=== PATIENT | male | born 1960 | race Caucasian/White ===

== ENCOUNTER 2017-04-30 15:56 | Outpatient (RCR) | payer OTHER, SELFPAY ==
[2017-04-30 17:29] LABS: International Normalized Ratio 3.1; Prothrombin Time (Protime)PT. 30.5 SECONDS (11.7-14.9)
== END 2017-04-30 16:15 | disposition home or self-care (01) ==
LOC: LAB 15:56
PROVIDERS: Family Provider Nurse Practitioner; PCP Nurse Practitioner; Visit Provider Internal Medicine Cardiovascular Disease
DX: I48.0 Paroxysmal atrial fibrillation (principal)
CPT/HCPCS: 36415; 85610

== ENCOUNTER 2017-06-09 16:27 | Outpatient (RCR) | payer OTHER, SELFPAY ==
[2017-04-24 13:35] VITALS: BP 168/90; BMI 31.7
[2017-06-05 12:36] LABS: Prothrombin Time (Protime)PT. 38.2 SECONDS (11.7-14.9)
[2017-06-05 13:14] LABS: International Normalized Ratio 4.1
[2017-06-09 17:36] LABS: International Normalized Ratio 2.9; Prothrombin Time (Protime)PT. 28.9 SECONDS (11.7-14.9)
== END 2017-06-09 17:00 | disposition home or self-care (01) ==
LOC: LAB 16:27
PROVIDERS: Family Provider Nurse Practitioner; PCP Nurse Practitioner; Visit Provider Internal Medicine Cardiovascular Disease
DX: I48.91 Unspecified atrial fibrillation (principal)
CPT/HCPCS: 36415; 85610

== ENCOUNTER 2017-07-16 10:55 | Outpatient (RCR) | payer OTHER, SELFPAY ==
[2017-06-25 11:31] LABS: International Normalized Ratio 2.8
[2017-07-16 11:30] LABS: International Normalized Ratio 2.6; Prothrombin Time (Protime)PT. 27.9 SECONDS (11.7-14.9)
== END 2017-07-16 12:00 | disposition home or self-care (01) ==
LOC: LAB 10:55
PROVIDERS: Family Provider Nurse Practitioner; PCP Nurse Practitioner; Visit Provider Internal Medicine Cardiovascular Disease
DX: I48.91 Unspecified atrial fibrillation (principal)
CPT/HCPCS: 36415; 85610

== ENCOUNTER 2017-08-06 08:17 | Outpatient (RCR) | payer OTHER, SELFPAY ==
[2017-08-06 08:48] LABS: International Normalized Ratio 2.9; Prothrombin Time (Protime)PT. 30.4 SECONDS (11.7-14.9)
== END 2017-08-06 09:00 | disposition home or self-care (01) ==
LOC: LAB 08:17
PROVIDERS: Family Provider Nurse Practitioner; PCP Nurse Practitioner; Visit Provider Internal Medicine Cardiovascular Disease
DX: I48.91 Unspecified atrial fibrillation (principal)
CPT/HCPCS: 36415; 85610

== ENCOUNTER 2017-09-05 08:18 | Outpatient (RCR) | payer OTHER, SELFPAY ==
[2017-09-05 09:07] LABS: International Normalized Ratio 3.4; Prothrombin Time (Protime)PT. 34.5 SECONDS (11.7-14.9)
[2017-09-05 09:29] LABS: AST(SGOT) 31 U/L (15-37); Alanine Aminotransfer ALT/SGPT 30 U/L (16-61); Albumin, Serum 3.7 g/dL (3.2-5.0); Alkaline Phosphatase 86 U/L (45-117); Bilirubin, Direct 0.14 mg/dL (0.00-0.30); Cholesterol 150 mg/dL (200); Globulin 3.5 g/dL (2.2-4.2); High Density Lipoprotein 36 mg/dL; Protein, Total 7.2 g/dL (6.4-8.2); Triglycerides 149 mg/dL; Very Low Density Lipoprotein 30 mg/dL (5-40)
== END 2017-09-05 09:00 | disposition home or self-care (01) ==
LOC: LAB 08:18
PROVIDERS: Family Provider Nurse Practitioner; PCP Nurse Practitioner; Visit Provider Internal Medicine Cardiovascular Disease
DX: I48.91 Unspecified atrial fibrillation (principal); E78.5 Hyperlipidemia, unspecified; Z79.899 Other long term (current) drug therapy
CPT/HCPCS: 36415; 80061; 80076; 85610

== ENCOUNTER 2017-10-14 16:33 | Outpatient (RCR) | payer OTHER, SELFPAY ==
[2017-10-06 17:16] LABS: Prothrombin Time (Protime)PT. 36.1 SECONDS (11.7-14.9)
[2017-10-06 17:59] LABS: International Normalized Ratio 3.6
[2017-10-14 17:16] LABS: International Normalized Ratio 3.2; Prothrombin Time (Protime)PT. 32.9 SECONDS (11.7-14.9)
== END 2017-10-14 17:00 | disposition home or self-care (01) ==
LOC: LAB 16:33
PROVIDERS: Family Provider Nurse Practitioner; PCP Nurse Practitioner; Visit Provider Internal Medicine Cardiovascular Disease
DX: I48.91 Unspecified atrial fibrillation (principal); E78.5 Hyperlipidemia, unspecified; Z79.899 Other long term (current) drug therapy
CPT/HCPCS: 36415; 85610

== ENCOUNTER 2017-11-14 15:53 | Outpatient (RCR) | payer OTHER, SELFPAY ==
[2017-10-31 16:02] LABS: International Normalized Ratio 3.7
[2017-11-14 17:34] LABS: Prothrombin Time (Protime)PT. 31.7 SECONDS (11.7-14.9)
== END 2017-11-14 17:00 | disposition home or self-care (01) ==
LOC: LAB 15:53
PROVIDERS: Family Provider Nurse Practitioner; PCP Nurse Practitioner; Visit Provider Internal Medicine Cardiovascular Disease
DX: I48.91 Unspecified atrial fibrillation (principal); E78.5 Hyperlipidemia, unspecified; Z79.899 Other long term (current) drug therapy
CPT/HCPCS: 36415; 85610

== ENCOUNTER 2017-12-12 12:32 | Outpatient (RCR) | payer OTHER, SELFPAY ==
[2017-12-12 13:21] LABS: International Normalized Ratio 3.2; Prothrombin Time (Protime)PT. 33.1 SECONDS (11.7-14.9)
== END 2017-12-12 14:00 | disposition home or self-care (01) ==
LOC: LAB 12:32
PROVIDERS: Family Provider Nurse Practitioner; PCP Nurse Practitioner; Visit Provider Internal Medicine Cardiovascular Disease
DX: I48.91 Unspecified atrial fibrillation (principal)
CPT/HCPCS: 36415; 85610

== ENCOUNTER 2018-01-09 10:27 | Outpatient (RCR) | payer OTHER, SELFPAY ==
[2018-01-09 11:07] LABS: International Normalized Ratio 2.9; Prothrombin Time (Protime)PT. 30.4 SECONDS (11.7-14.9)
== END 2018-01-09 12:00 | disposition home or self-care (01) ==
LOC: LAB 10:27
PROVIDERS: Family Provider Nurse Practitioner; PCP Nurse Practitioner; Visit Provider Internal Medicine Cardiovascular Disease
DX: I48.91 Unspecified atrial fibrillation (principal)
CPT/HCPCS: 36415; 85610

== ENCOUNTER 2018-03-20 11:54 | Outpatient (RCR) | payer OTHER, SELFPAY ==
[2018-02-19 17:22] LABS: International Normalized Ratio 2.9; Prothrombin Time (Protime)PT. 30.1 SECONDS (11.7-14.9)
[2018-03-20 13:39] LABS: International Normalized Ratio 2.7
== END 2018-03-20 12:32 | disposition home or self-care (01) ==
LOC: LAB 11:54
PROVIDERS: Family Provider Nurse Practitioner; PCP Nurse Practitioner; Referring Provider Internal Medicine Cardiovascular Disease; Visit Provider Internal Medicine Cardiovascular Disease
DX: I48.91 Unspecified atrial fibrillation (principal)
CPT/HCPCS: 36415; 85610

== ENCOUNTER → 2018-04-04 09:58 | Outpatient (CLI) | payer OTHER, SELFPAY ==
[2018-04-04 11:22] LABS: AST(SGOT) 24 U/L (15-37); Alanine Aminotransfer ALT/SGPT 30 U/L (16-61); Albumin, Serum 3.7 g/dL (3.2-5.0); Alkaline Phosphatase 91 U/L (45-117); Bilirubin, Direct 0.13 mg/dL (0.00-0.30); Cholesterol 218 mg/dL (200); Globulin 3.1 g/dL (2.2-4.2); High Density Lipoprotein 39 mg/dL; Protein, Total 6.8 g/dL (6.4-8.2); Triglycerides 146 mg/dL; Very Low Density Lipoprotein 29 mg/dL (5-40)
--- OUTSIDE RECORDS SUMMARY | 2018-07-08 09:26 | XMS RPT_ITS ---
:1960 Author Organization OHIP Support Name Relationship Address Phone [facility] Unavailable [phone] + [place] [address] CURTIS RILEY Unavailable [address] + [place] [address] [facility] Unavailable [address] + [place] [phone] BHARATI RILEYICE Unavailable [address] + [place] [address] [facility] Unavailable [address] + [place] [phone] BHARATI RILEYICE Unavailable [address] + [place] [address] [facility]available [address] + [place] [address] BHARATI RILEYICE Unavailable [address] + [place] [address] [facility] Unavailable [address] + [place] [phone] BHARATI RILEYICE Unavailable [address] + [place] [address] [facility] Unavailable [address] + [place] [address] CURTIS RILEY Unavailable [address] + [place] [address] [facility] Unavailable [address] + [place] [address] BHARATI RILEYICE Unavailable [address] + [place] [address] [facility] Unavailable [address] + [place] [address] RILEY CURTIS Unavailable [address] + [place] [address] [facility] Unavailable [address] + [place] [address] RILEYBHARATICURTIS Unavailable NA + [place] [address] [facility] Unavailable [address] + [place] [address] RILEY, CURTIS Unavailable NA + [place] [address] [facility] Unavailable [address] + [place] [address] RILEY, CURTIS Unavailable NA + [place] [address] [facility] Unavailable [address] + [place] [address] RILEY, CURTIS Unavailable NA + [place] [address] Care Team Providers Name Role Phone Jadyn, [place] Attending Unavailable Jadyn, Rad Referring Unavailable [facility] Jadyn, Rad Attending Unavailable Jadyn, [place] Referring Unavailable [facility] Jadyn, [place] Attending Unavailable Jadyn, Rad Referring Unavailable [facility] Unavailable Jadyn, [place] Attending Unavailable Jadyn, Rad Referring Unavailable [facility] Jadyn, [place] Attending Unavailable Jadyn, [place] Referring [facility]available [facility] Jadyn, [place] Attending Unavailable Jadyn, Rad Referring Unavailable [facility] Unavailable Jadyn, Rad Attending Unavailable Jadyn, [place] Referring [facility]available [facility] Jadyn, Rad Attending Unavailable Jadyn, [place] Referring Unavailable [facility] Jadyn, Rad Attending Unavailable [facility] Referring [facility]available [facility]available Jadyn, [place] Attending Unavailable Jadyn, Rad Referring Unavailable [facility] Unavailable Jadyn, [place] Attending Unavailable Jadyn, Rad Referring Unavailable [facility] Jadyn, Rad Attending Unavailable Jadyn, [place] Referring Unavailable Lisa [facility] Primary [facility] Unavailable PROBLEMS PROBLEMS DATE TYPE CONDITION / CODE ATTENDING STATUS SOURCE 03/23/2018 Unknown I48.91 - Unspecified Jadyn, Rad Active [place] atrial fibrillation Community / I48.91(ICD-10) Hospital Repository 09/18/2017 Unknown E78.5 - Jadyn, Rad Active [place] Hyperlipidemia, Community unspecified / Hospital E78.5(ICD-10) Repository 09/18/2017 Unknown Z79.899 - Other long Jadyn, [place] Active [place] term (current) drug [facility] therapy / Hospital Z79.899(ICD-10) Repository 07/24/2017 Unknown Z95.2 - Presence of Jadyn, Rad Active [place] prosthetic heart [facility] valve / Hospital Z95.2(ICD-10) Repository 07/24/2017 Unknown I10 - Essential Jadyn, Rad Active [place] (primary) [facility] hypertension / Hospital I10(ICD-10) Repository 07/24/2017 Unknown E78.2 - Mixed Jadyn, Rad Active [place] hyperlipidemia / Community E78.2(ICD-10) Hospital Repository PROCEDURES PROCEDURES No Procedure Records FoundRESULTS RESULTS PROTHROMBIN TIME W/INR Collected: 04/30/2018 Status: F Source: [place] 4:43 PM [facility] REPOSITORY TYPE CODE TESTS RESULT OUT OF RANGE REFERENCE UNITS LAB L300.4150 11.7-14.9 SECONDS High PROTIME 24.7 LAB L300.4200 Normal INR 2.2 Performed By: #### L300.3900 #### [facility] Laboratory [facility] [place], [address] LIVER PROFILE Collected: 04/04/2018 Status: F Source: [place] 10:14 AM [facility] REPOSITORY TYPE CODE TESTS RESULT OUT OF RANGE REFERENCE UNITS LAB L501.1500 6.4-8.2 g/dL Normal T PROT 6.8 LAB L501.1800 3.2-5.0 g/dL Normal ALB 3.7 LAB L501.1950 2.2-4.2 g/dL Normal GLOB 3.1 LAB L501.4100 15-37 U/L Normal AST 24 LAB L501.4305 45-117 U/L Normal ALK P 91 LAB L501.4405 16-61 U/L Normal ALT 30 LAB L501.4600 0.20-1.00 mg/dL Normal T BILI 0.50 LAB L501.4700 0.00-0.30 mg/dL Normal D BILI 0.13 Performed By: #### L500.3400, L500.4100 #### [facility] [address] [place], [place], [address] LIPID PROFILE Collected: 04/04/2018 Status: F Source: [place] 10:14 AM [facility] REPOSITORY TYPE CODE TESTS RESULT OUT OF RANGE REFERENCE UNITS LAB L501.4900 200 mg/dL High CHOL 218 Result Comment: <200 mg/dL Desirable 200-240 mg/dL Borderline >240 mg/dL High Risk LAB L501.5000 mg/dL Normal TRIG 146 Result Comment: The drugs N-Acetylcysteine and Metamizole may falsely depress this assay. Serum Triglycerides Reference Interval Normal <150 mg/dL Borderline high 150 - 199 mg/dL High 200 - 499 mg/dL Very High > or = 500 mg/dL LAB L501.6400 mg/dL Low HDL 39 Result Comment: The drugs N-Acetylcysteine and Metamizole may falsely depress this assay. Reference Range HDL <40 mg/dL Low HDL Cholesterol HDL >or= 60 mg/dL High HDL Cholesterol LAB L501.6500 0-130 mg/dL High LDL 150 LAB L501.6600 5-40 mg/dL Normal VLDL 29 Performed By: #### L500.3400, L500.4100 #### [facility] [address] [place], [address] PROTHROMBIN TIME W/INR Collected: 03/20/2018 Status: F Source: [place] 11:59 AM [facility] REPOSITORY TYPE CODE TESTS RESULT OUT OF RANGE REFERENCE UNITS LAB L300.4150 11.7-14.9 SECONDS High PROTIME 29.0 LAB L300.4200 Normal INR 2.7 Performed By: #### L300.3900 #### [facility] [address] [place], [address] PROTHROMBIN TIME W/INR Collected: 02/19/2018 Status: F Source: [place] 4:42 PM [facility] REPOSITORY TYPE CODE TESTS RESULT OUT OF RANGE REFERENCE UNITS LAB L300.4150 11.7-14.9 SECONDS High PROTIME 30.1 LAB L300.4200 Normal INR 2.9 Performed By: #### L300.3900 #### [facility] [address] [place], [address] PROTHROMBIN TIME W/INR Collected: 01/09/2018 Status: F Source: [place] 10:31 AM [facility] REPOSITORY TYPE CODE TESTS RESULT OUT OF RANGE REFERENCE UNITS LAB L300.4150 11.7-14.9 SECONDS High PROTIME 30.4 LAB L300.4200 Normal INR 2.9 Performed By: #### L300.3900 #### [facility] [address] [place], [address] PROTHROMBIN TIME W/INR Collected: 12/12/2017 Status: F Source: [place] 12:36 PM [facility] REPOSITORY TYPE CODE TESTS RESULT OUT OF RANGE REFERENCE UNITS LAB L300.4150 11.7-14.9 SECONDS High PROTIME 33.1 LAB L300.4200 Normal INR 3.2 Performed By: #### L300.3900 #### [facility] [address] [place], [address] PROTHROMBIN TIME W/INR Collected: 11/14/2017 Status: F Source: [place] 3:58 PM [facility] REPOSITORY TYPE CODE TESTS RESULT OUT OF RANGE REFERENCE UNITS LAB L300.4150 11.7-14.9 SECONDS High PROTIME 31.7 LAB L300.4200 Normal INR 3.0 Performed By: #### L300.3900 #### [facility] [address] [place], [address] PROTHROMBIN TIME W/INR Collected: 10/31/2017 Status: F Source: [place] 1:41 PM [facility] REPOSITORY TYPE CODE TESTS RESULT OUT OF REFERENCE UNITS RANGE LAB L300.4150 11.7-14.9 SECONDS High PROTIME 37.0 LAB L300.4200 High alert INR 3.7 Result Comment: CRITICAL VALUE VERIFIED. CALLED TO [facility] 10/31/17 1602 Lidia Biswas. RESULTS READ BACK BY SAME . Performed By: #### L300.3900 #### [facility] [address] [place], [address] PROTHROMBIN TIME W/INR Collected: 10/14/2017 Status: F Source: [place] 4:35 PM [facility] REPOSITORY TYPE CODE TESTS RESULT OUT OF RANGE REFERENCE UNITS LAB L300.4150 11.7-14.9 SECONDS High PROTIME 32.9 LAB L300.4200 Normal INR 3.2 Performed By: #### L300.3900 #### [facility] [address] [place], [address] PROTHROMBIN TIME W/INR Collected: 10/06/2017 Status: F Source: [place] 4:39 PM [facility] REPOSITORY TYPE CODE TESTS RESULT OUT OF REFERENCE UNITS RANGE LAB L300.4150 11.7-14.9 SECONDS High PROTIME 36.1 LAB L300.4200 High alert INR 3.6 Result Comment: CRITICAL VALUE VERIFIED. CALLED TO JOSE WHAT[facility] 10/06/17 1759 Cata Stafford. RESULTS READ BACK BY SAME . Performed By: #### L300.3900 #### [facility] [address] [place], [address] PROTHROMBIN TIME W/INR Collected: 09/05/2017 Status: F Source: [place] 8:23 AM [facility] REPOSITORY TYPE CODE TESTS RESULT OUT OF RANGE REFERENCE UNITS LAB L300.4150 11.7-14.9 SECONDS High PROTIME 34.5 LAB L300.4200 Normal INR 3.4 Performed By: #### L300.3900 #### [facility] [address] [place], [address] LIVER PROFILE Collected: 09/05/2017 Status: F Source: [place] 8:23 AM [facility] REPOSITORY Order Comment: Order Date: 03/19/17 Order Info: [id number] - *Hepatic Function Panel Order Info: [id number] - *Lipid Profile CC PCP Comments: 12 hours fasting, may have water. TYPE CODE TESTS RESULT OUT OF RANGE REFERENCE UNITS LAB L501.1500 6.4-8.2 g/dL Normal T PROT 7.2 LAB L501.1800 3.2-5.0 g/dL Normal ALB 3.7 LAB L501.1950 2.2-4.2 g/dL Normal GLOB 3.5 LAB L501.4100 15-37 U/L Normal AST 31 LAB L501.4305 45-117 U/L Normal ALK P 86 LAB L501.4405 16-61 U/L Normal ALT 30 LAB L501.4600 0.20-1.00 mg/dL Normal T BILI 0.60 LAB L501.4700 0.00-0.30 mg/dL Normal D BILI 0.14 Performed By: #### L500.3400 #### [facility] [address] [place], [place], [id number] LIPID PROFILE Collected: 09/05/2017 Status: F Source: [place] 8:23 AM [facility] REPOSITORY Order Comment: Order Date: 03/19/17 Order Info: [id number] - *Hepatic Function Panel Order Info: [id number] - *Lipid Profile CC PCP Comments: 12 hours fasting, may have water. TYPE CODE TESTS RESULT OUT OF RANGE REFERENCE UNITS LAB L501.4900 200 mg/dL Normal CHOL 150 Result Comment: <200 mg/dL Desirable 200-240 mg/dL Borderline >240 mg/dL High Risk LAB L501.5000 mg/dL Normal TRIG 149 Result Comment: The drugs N-Acetylcysteine and Metamizole may falsely depress this assay. Serum Triglycerides Reference Interval Normal <150 mg/dL Borderline high 150 - 199 mg/dL High 200 - 499 mg/dL Very High > or = 500 mg/dL LAB L501.6400 mg/dL Low HDL 36 Result Comment: The drugs N-Acetylcysteine and Metamizole may falsely depress this assay. Reference Range HDL <40 mg/dL Low HDL Cholesterol HDL >or= 60 mg/dL High HDL Cholesterol LAB L501.6500 0-130 mg/dL Normal LDL 84 LAB L501.6600 5-40 mg/dL Normal VLDL 30 Performed By: #### L500.4100 #### [facility] [address] [place], [address] PROTHROMBIN TIME W/INR Collected: 08/06/2017 Status: F Source: [place] 8:19 AM [facility] REPOSITORY TYPE CODE TESTS RESULT OUT OF RANGE REFERENCE UNITS LAB L300.4150 11.7-14.9 SECONDS High PROTIME 30.4 LAB L300.4200 Normal INR 2.9 Performed By: #### L300.3900 #### [facility] [address] [place], [address] CARDIOLOGY VISIT Observed: 07/24/2017 Status: F Source: [place] REPORT 1:23 PM [facility] REPOSITORY [facility] [address] [place] [address] OFFICE VISIT Date of Service: 07/24/17 MR#: [id number] Acct: [id number] Name: RUT RILEY Rep #: [id number] : 1960 Provider: Rad Salamanca MD Age/Sex: 56/M Location: [facility] [place] Status: Signed HPI HPI Chief Complaint: Follow-up visit. Details: RUT RILEY, is a 56 M who presents to the office today for a follow-up visit. He is a gentleman with a history of [facility] aortic valve replacement in 2005. He returns for routine follow-up visit. He denies any chest pain or shortness breath or paroxysmal nocturnal dyspnea pedal edema he has had no neck arm or jaw discomfort suggest angina no dizziness no diaphoresis no near syncope or syncope. He remains on his current medications as well as anticoagulation. His physical exam demonstrates clear lung lea regular rate and rhythm crisp audible prosthetic sounds and no pedal edema. Intake Vital Signs07/24/17 Height 5 ft 8 in 07/24/17 Weight: 207 lb 07/24/17 Body Mass Index (BMI) 31.4 07/24/17 Blood Pressure 130/74 Intake Visit Reasons: 1 Y FU Allergies No Known Allergies Allergy (Verified 07/24/17 12:57) Medications Aspirin [Aspirin, Baby] 81 mg PO DAILY@0800 06/10/13 [History Confirmed 07/24/17] metoprolol succinate ER 25 mg tablet,extended release 24 hr 12.5 mg PO DAILY tab 04/23/17 [History Confirmed 07/24/17] warfarin 4 mg tablet 4 mg PO 4XW tab 04/23/17 [History Confirmed 07/24/17] warfarin 5 mg tablet 5 mg PO .3XW 90 Days tab 04/23/17 [History Confirmed 07/24/17] atorvastatin 40 mg tablet 40 mg PO .every other day tab 04/24/17 [History Confirmed 07/24/17] ramipril 5 mg capsule 5 mg PO DAILY #90 cap 07/16/17 [Rx Confirmed 07/24/17] amoxicillin 500 mg capsule 500 mg PO .COMPLEX 07/22/17 [History Confirmed 07/24/17] [facility] History correction (current) use of anticoagulants (Acute) HLD (hyperlipidemia) (Chronic) HTN (hypertension) (Chronic) Aortic valve disease (Chronic) Atrial fibrillation (Chronic) Palpitations (Chronic) Bradycardia (Chronic) Anticoagulated on warfarin (Chronic) History of echocardiogram (Chronic) Surgical History History of aortic valve replacement (Chronic 02/29/04) History of right and left heart catheterization (Chronic) Family History Father Hypertension Mother Afib Hypertension Sister Myocardial infarction, Onset Age: 40 Social History Smoking Status: Never smoker alcohol intake: current alcohol intake frequency: a few times a month Alcohol type: wine substance use type: does not use caffeine: Yes Type: coffee Number of servings: 1 what type of physical activity do you participate in: none seatbelt use: always do you feel safe at home: Yes ROS Const Const: Positive for difficulty sleeping; negative for fatigue, weakness, weight gain, weight loss, frequent falls or excessive sweating Eyes Eyes: Negative for change in vision, blurry vision or transient loss of vision ENT ENT: Negative for dizziness or balance problems Cardio Chest Pain: No Palpitations: Yes (occasional) feels like its: fast, skipping, pounding Edema: None Muscle aches with walking: None Additional Details: Patient reports that he was seen a couple of months ago for increased palpitations, noting 4-5x daily. Patient states that he wore a 24 hr holter monitor which didnt capture anything. Patient states that he continues to experience occasional palpitations at this time. Resp Respiratory: Negative for SOB with activity or SOB at rest GI GI: Negative vomiting or vomiting blood/hematemesis : Negative for hematuria Musc Musc: Negative for balance problems, muscle aches/ myalgia, muscle weakness or joint pain Skin Skin: Negative non-healing lesions or rash Neuro Neuro: Negative for weakness, blurry vision, dizziness, lightheadedness, frequent falls or orthostatic symptoms Errol Hematologic/Lymphatic: Negative for easy bleeding Endo Endo: Negative for fatigue or excessive sweating Psych Psych: Negative for anxiety or depression Allergy Allergy/Immunology: Negative for hives, Negative for rash Cardiology Exam Const Appearance: cooperative, healthy appearing, well developed, well groomed and no acute distress Nutritional Appearance: well nourished and average body habitus Orientation: alert, awake and oriented x3 Head Head: normal to inspection, normocephalic and atraumatic Ears: hearing grossly normal bilaterally and external ears normal Nose: external nose normal, nasal mucous membranes and turbinates normal, nares normal, septum normal, no nasal discharge Face and Sinus: face symmetric Mouth: oral mucosae normal, tongue normal, oropharynx normal and moist mucous membranes Teeth and gingiva: dentition normal Throat: posterior oropharynx normal, tonsils normal and uvula midline Eyes General: appearance normal, both eyes and all related structures Eyelids: eyelids normal Conjunctivae: conjunctivae normal Pupils: PERRL, normal by confrontation and accommodation normal EOM: EOM intact bilaterally Neck Neck: normal visual inspection, trachea midline and no JVD JVD: +5 Carotids: normal carotid upstroke and bounding pulses Chest Chest inspection: normal inspection of the chest, symmetric chest movement and normal respiratory effort Auscultation: Bilateral: Clear to Auscultation Cardio Palpation: normal PMI Rate: regular rate Heart sounds: S1 normal and crisp prosthetic S2 Murmur: Grade 1/6 GI GI: normal to inspection, soft, no hepatosplenomegaly and bowel sounds present Neuro General: alert, awake, oriented x3, no focal sensory deficit, gait normal and moves all extremities Skin Skin: no rashes or lesions noted Extremities Pulses: Normal: Right Femoral Pulse, Left Femoral Pulse, Right Dorsalis Pedis Pulse, Left Dorsalis Pedis Pulse, Right Posterior Tibial Pulse, Left Posterior Tibial Pulse, Right Radial Pulse, Left Radial Pulse Lower Extremity Edema: None: Bilateral Musculoskel Musculoskeletal: No joint tenderness Psych Psychological: normal affect Assessment AND Plan 1. History of aortic valve replacement Z95.2 AVR #29 [facility] Resection and replacement of ascending aortic aneurysm with #30 Hemashield graft Plan He overall continues to do well with his current valve. His last echocardiogram was last year which demonstrated an ejection fraction of 55% with a peak gradient of 17 mmHg and a mean gradient of 8 mmHg. He will continue with antibiotic prophylaxis as well as INR between 2.5 and 3.5. 2. Essential hypertension I10 Plan His blood pressure appears to be under excellent control at this time on the beta-kp and the ramipril and no changes will be made. 3. Mixed hyperlipidemia E78.2 Plan He is doing well on his current dose of statin his most recent lipid profile demonstrated total cholesterol 150 LDL of 75 and HDL of 42. No other changes will be made. Thank you for allowing me to participate in the care of your patient. 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) Coding Level of Care Code Off vis,est,level 3 Diagnoses History of aortic valve replacement Z95.2 Essential hypertension I10 Hypertension type: essential hypertension Mixed hyperlipidemia E78.2 Hyperlipidemia type: mixed hyperlipidemia Coding Level of Care Code Off vis,est,level 3 Diagnoses History of aortic valve replacement Z95.2 Essential hypertension I10 Hypertension type: essential hypertension Mixed hyperlipidemia E78.2 Hyperlipidemia type: mixed hyperlipidemia 07/24/17 1323 <Electronically signed by Rad Salamanca MD> Date Rad Salamanca MD Cosigner Signature: Date (if applicable) CC: Lisa Mcconnell NP PROTHROMBIN TIME W/INR Collected: 07/16/2017 Status: F Source: [place] 10:57 AM [facility] REPOSITORY TYPE CODE TESTS RESULT OUT OF RANGE REFERENCE UNITS LAB L300.4150 11.7-14.9 SECONDS High PROTIME 27.9 LAB L300.4200 Normal INR 2.6 Performed By: #### L300.3900 #### [facility] [address] [place] [place], [address] PROTHROMBIN TIME W/INR Collected: 06/25/2017 Status: F Source: [place] 10:18 AM [facility] REPOSITORY TYPE CODE TESTS RESULT OUT OF RANGE REFERENCE UNITS LAB L300.4150 11.7-14.9 SECONDS High PROTIME 30.0 LAB L300.4200 Normal INR 2.8 Performed By: #### L300.3900 #### [facility] [address] [place], [address] PROTHROMBIN TIME W/INR Collected: 06/09/2017 Status: F Source: [place] 4:36 PM [facility] REPOSITORY Order Comment: Comments: STANDING ORDER Comments: STANDING ORDER TYPE CODE TESTS RESULT OUT OF RANGE REFERENCE UNITS LAB L300.4150 11.7-14.9 SECONDS High PROTIME 28.9 LAB L300.4200 Normal INR 2.9 Performed By: #### L300.3900 #### [facility] [address] [place], [address] PROTHROMBIN TIME W/INR Collected: 06/05/2017 Status: F Source: [place] 10:52 AM [facility] REPOSITORY TYPE CODE TESTS RESULT OUT OF REFERENCE UNITS RANGE LAB L300.4150 11.7-14.9 SECONDS High PROTIME 38.2 LAB L300.4200 High alert INR 4.1 Result Comment: CRITICAL VALUE VERIFIED. CALLED TO STEFANI AT [facility] 06/05/17 1314 Olena Butts. RESULTS READ BACK BY SAME . Performed By: #### L300.3900 #### [facility] [address] [place], [address] ALLERGIES ALLERGIES DATE TYPE / CODE NAME / CODE REACTION SEVERITY SOURCE 07/24/2017 Drug No Known Unknown [facility] Allergy/4160 Allergies/F00 Hospital 42788(SNOMED 2654677(RXNOR Repository CT) M) ENCOUNTERS ENCOUNTERS ADMIT/DISCHARGE ACCOUNT ADMITTING ENCOUNTER LOCATION SOURCE NUMBER CLASS 04/30/2018 [id number] Ambulatory [place] [facility] ing:LAB Repository 04/04/2018 [id number] Ambulatory [place] [facility] ing:LAB Repository 03/20/2018/ [id number] [place]ulatory [place] [facility] ing:LAB Repository 01/09/2018/ [id number] Ambulatory [place] [facility] 5 [facility] ing:LAB Repository 12/12/2017/ [id number] Ambulatory [place] 6 [facility] ing:LAB Repository 11/14/2017/ [id number] Ambulatory [place] [facility] 6 [facility] ing:LAB Repository 10/14/2017/ [id number] Ambulatory [place] [facility] 7 [facility] ing:LAB Repository 09/05/2017/ [id number] [place]ulatory [place] [facility] 0 [facility] ing:LAB Repository 08/06/2017/ [id number] Ambulatory [place] [facility] 6 [facility] ing:LAB Repository 07/24/2017/ [id number] Ambulatory [facility] [place] [facility] Repository 07/16/2017/ [id number] Ambulatory [place] [facility] 7 [facility] ing:LAB Repository 06/09/2017/ [id number] Ambulatory [place] 2 [facility] ing:LAB Repository PAYERS PAYERS ENCOUNTER GUARANTOR PAYER SUBSCRIBER SOURCE 04/30/2018 RUT Magana Primary RUT [address]AY[address] BOX Insurance:Emiliano RUELAS: [address] Number: [id number] [address]Kto: [phone] [id number] Repository [phone] () Date:[id number] [address], [place] [address]NI: 04/30/2018 Secondary NOT GIVENUNK [place] Insurance:SELF PAY [facility] Number: Effective Repository Date:2018-03-23 04/04/2018 RUT D Primary RUT D [place] [address] Insurance:CIGNAPolicy WILCOXDOB: [address], [place] Number: [id number] [address]Yaw: 330 [id number] Repository [phone] () Date:[id number] [address], [place] [address]GS: 04/04/2018 Secondary NOT GIVENUNK [place] Insurance:SELF PAY [facility] Number: Effective Repository Date:2018-04-04 03/20/2018 RUT D Primary RUT D [place] [address] Insurance:CIGNAPolicy WILCOXDOB: [address], [place] Number: [id number] [address]Sfu: 330 [id number] Repository [phone] () Date:4912-03-79KS [address], [place] [address]IO: 03/20/2018 Secondary NOT GIVENUNK [place] Insurance:SELF PAY [facility] Number: Effective Repository Date:2018-01-21 01/09/2018 RUT D Primary RUT D [place] [address] Insurance:CIGNAPolicy WILCOXDOB: [address], [place] Number: [id number] [address]Miq: 330 [id number] Repository [phone] () Date:[id number]PVAENKM[place]U, [place] [address]OL: 01/09/2018 Secondary NOT GIVENUNK [place] Insurance:SELF PAY [facility] Number: Effective Repository Date:2017-12-23 12/12/2017 RUT D Primary RUT D [place] [address] Insurance:CIGNAPolicy WILCOXDOB: [address], [place] Number: [id number] [address]Enw: 330 [id number] Repository [phone] (HP) Date:5807-84-43NV [address]QIGISWNG[address], [place] [address]KG: 12/12/2017 Secondary NOT GIVENUNK [place] Insurance:SELF PAY [facility] Number: Effective Repository Date:2017-11-20 11/14/2017 RUT D Primary RUT D [place] [address] Insurance:CIGNAPolicy WILCOXDOB: [facility] [address]: [id number] [id number]: 330 [id number] Repository [phone] (HP) Date:4022-35-91[address]AHXUMEBWHTR, [place] [address]IP: 11/14/2017 Secondary NOT GIVENUNK [place] Insurance:SELF PAY [facility] Number: Effective Repository Date:2017-10-17 10/14/2017 RUT D Primary RUT D [place] [address] Insurance:CIGNAPolicy WILCOXDOB: [address] [place] Number: [id number] [id number]: 330 [id number] Repository [phone] () Date:8793-06-57WU [address]FUOFBVYCZGM, [place] [address]WB: 10/14/2017 Secondary NOT GIVENUNK [place] Insurance:SELF PAY [facility] Number: Effective Repository Date:2017-09-18 09/05/2017 RUT D Primary RUT D [place] [address] Insurance:CIGNAPolicy WILCOXDOB: [facility] [address] Number: [id number] [id number]: 330 [id number] Repository [phone] () Date:1243-25-79DG [address]EBUJGDGPBAW, [place] [address]KT: 09/05/2017 Secondary NOT GIVENUNK [place] Insurance:SELF PAY [facility] Number: Effective Repository Date:2017-08-19 08/06/2017 RUT D Primary RUT D [place] [address] Insurance:CIGNAPolicy WILCOXDOB: [address], [place] Number: [id number] [address]Abq: 330 [id number] Repository [phone] (HP) Date:8254-13-10[address] [address]VA: 08/06/2017 Secondary NOT GIVENUNK [place] Insurance:SELF PAY [facility] Number: Effective Repository Date:2017-07-21 07/24/2017 RUT D Primary RUT D [place] [address] Insurance:CIGNAPolicy WILCOXDOB: [facility] [address], [place] Number: [id number] [facility] [address]Zgb: 330 [id number] Repository [phone] (HP) Date:6498-87-64XS [address] [address]LJ: 07/24/2017 Secondary NOT GIVENUNK [place] Insurance:SELF PAY [facility] Number: Effective Repository Date:2017-07-24 07/16/2017 RUT D Primary RUT D [place] [address] Insurance:CIGNAPolicy WILCOXDOB: [facility] [address] [place] [address], [place] Number: [id number] [address]Ozi: 330 [id number] Repository [phone] () Date:5646-85-53[address] [address]PS: 07/16/2017 Secondary NOT GIVENUNK [place] Insurance:SELF PAY [facility] Number: Effective Repository Date:2017-06-19 06/09/2017 RUT D Primary RUT D [place] [address] Insurance:CIGNAPolicy WILCOXDOB: [facility] [address] Number: [id number] [address]Dbi: 330 [id number] Repository [phone] () Date:2280-83-25WA [address] [address]SZ: 06/09/2017 Secondary NOT GIVENUNK [place] Insurance:SELF PAY [facility] Number: Effective Repository Date:2017-05-27
== END ==
PROVIDERS: Family Provider Nurse Practitioner; PCP Nurse Practitioner; Referring Provider Internal Medicine Cardiovascular Disease; Visit Provider Internal Medicine Cardiovascular Disease
DX: E78.5 Hyperlipidemia, unspecified (principal)
CPT/HCPCS: 36415; 80061; 80076

== ENCOUNTER 2018-05-15 11:46 | Outpatient (RCR) | payer OTHER, SELFPAY ==
[2018-04-30 17:54] LABS: International Normalized Ratio 2.2; Prothrombin Time (Protime)PT. 24.7 SECONDS (11.7-14.9)
[2018-05-15 12:34] LABS: International Normalized Ratio 2.3; Prothrombin Time (Protime)PT. 25.6 SECONDS (11.7-14.9)
== END 2018-05-15 13:00 | disposition home or self-care (01) ==
LOC: LAB 11:46
PROVIDERS: Family Provider Nurse Practitioner; PCP Nurse Practitioner; Referring Provider Internal Medicine Cardiovascular Disease; Visit Provider Internal Medicine Cardiovascular Disease
DX: I48.91 Unspecified atrial fibrillation (principal)
CPT/HCPCS: 36415; 85610

== ENCOUNTER 2018-06-11 16:13 | Outpatient (RCR) | payer OTHER, SELFPAY ==
[2018-05-29 17:32] LABS: International Normalized Ratio 3.1; Prothrombin Time (Protime)PT. 32.1 SECONDS (11.7-14.9)
[2018-06-11 17:33] LABS: International Normalized Ratio 3.3; Prothrombin Time (Protime)PT. 33.4 SECONDS (11.7-14.9)
== END 2018-06-18 17:00 | disposition home or self-care (01) ==
LOC: LAB 16:13
PROVIDERS: Family Provider Nurse Practitioner; PCP Nurse Practitioner; Referring Provider Internal Medicine Cardiovascular Disease; Visit Provider Internal Medicine Cardiovascular Disease
DX: I35.9 Nonrheumatic aortic valve disorder, unspecified (principal); Z79.01 Long term (current) use of anticoagulants; Z95.2 Presence of prosthetic heart valve
CPT/HCPCS: 36415; 85610

== ENCOUNTER 2018-07-03 16:36 | Outpatient (RCR) | payer OTHER, SELFPAY ==
[2018-07-03 17:23] LABS: Prothrombin Time (Protime)PT. 31.1 SECONDS (11.7-14.9)
== END 2018-07-03 17:36 | disposition home or self-care (01) ==
LOC: LAB 16:36
PROVIDERS: Family Provider Nurse Practitioner; PCP Nurse Practitioner; Referring Provider Internal Medicine Cardiovascular Disease; Visit Provider Internal Medicine Cardiovascular Disease
DX: I35.9 Nonrheumatic aortic valve disorder, unspecified (principal); Z79.01 Long term (current) use of anticoagulants; Z95.2 Presence of prosthetic heart valve
CPT/HCPCS: 36415; 85610

== ENCOUNTER 2018-08-13 13:47 | Outpatient (RCR) | payer OTHER, SELFPAY ==
[2018-07-23 10:02] VITALS: BMI 31.1
[2018-08-13 14:27] LABS: International Normalized Ratio 2.3
== END 2018-08-18 16:00 | disposition home or self-care (01) ==
LOC: LAB 13:47
PROVIDERS: Family Provider Nurse Practitioner; PCP Nurse Practitioner; Referring Provider Internal Medicine Cardiovascular Disease; Visit Provider Internal Medicine Cardiovascular Disease
DX: I35.9 Nonrheumatic aortic valve disorder, unspecified (principal); Z79.01 Long term (current) use of anticoagulants; Z95.2 Presence of prosthetic heart valve
CPT/HCPCS: 36415; 85610

== ENCOUNTER 2018-09-18 09:39 | Outpatient (RCR) | payer OTHER, SELFPAY ==
[2018-07-23 10:02] VITALS: BMI 31.1
[2018-08-27 16:25] LABS: Prothrombin Time (Protime)PT. 31.6 SECONDS (11.7-14.9)
[2018-09-18 10:03] LABS: International Normalized Ratio 2.7; Prothrombin Time (Protime)PT. 28.7 SECONDS (11.7-14.9)
== END 2018-09-18 11:00 | disposition home or self-care (01) ==
LOC: LAB 09:39
PROVIDERS: Family Provider Nurse Practitioner; PCP Nurse Practitioner; Referring Provider Internal Medicine Cardiovascular Disease; Visit Provider Internal Medicine Cardiovascular Disease
DX: I35.9 Nonrheumatic aortic valve disorder, unspecified (principal); Z95.2 Presence of prosthetic heart valve; Z79.01 Long term (current) use of anticoagulants
CPT/HCPCS: 36415; 85610

== ENCOUNTER → 2018-09-22 | Outpatient (CLI) | payer OTHER, SELFPAY ==
[2018-07-23 10:02] VITALS: BMI 31.1
[2018-09-22 10:15] LABS: Absolute Lymphocyte Count 1.47 X10^3/ul (0.83-4.51); Absolute Neutrophil Count 4.1 X10^3/uL (2.0-7.7); Basophil# 0.02 X10^3/uL; Basophil% 0.3 % (0-1); Eosinophil# 0.22 X10^3/uL; Eosinophils% 3.4 % (0-5); Hematocrit 44.4 % (40-54); Hemoglobin 14.4 g/dl (13.0-16.5); Lymphocyte # 1.47 X10^3/ul (4.0); Lymphocyte % 22.4 % (19-41); Mean Corp Hgb Conc 32.4 g/gl (32-36); Mean Corpuscular Hgb 29.5 pg (27.0-32.0); Mean Platelet Vol. 10.8 fl (6.2-12.0); Monocyte# 0.71 X10^3/uL; Monocyte% 10.8 % (0-10); Neutrophil # 4.11 X10^3/uL (2.7-7.7); Neutrophil % 62.6 % (47-70); Platelet Count 107 K/mm3 (150-450); RBC Distribution Width SD 43.1 fl (35.1-43.9); Red Blood Count 4.88 M/mm3 (4.6-6.2); White Blood Count 6.6 K/mm3 (4.4-11.0)
[2018-09-22 10:16] LABS: POSITIVE COUNT NO; POSITIVE DIFFERENTIAL NO; POSITIVE MORPHOLOGY NO
[2018-09-22 10:44] LABS: Anion Gap 4 (5-15); BUN 11 mg/dL (7-18); BUN/Creat Ratio 10.2 RATIO (10-20); Calcium,Total 8.9 mg/dL (8.5-10.1); Chloride 108 mmol/L (98-107); Creatinine, Serum 1.08 mg/dL (0.70-1.30); EST Glomerular Filtration Rate 74 mL/min (>60); Est Glom Filt Rate - Afr Amer 90 mL/min (>60); Glucose 94 mg/dL (74-106); Sodium Level 142 mmol/L (136-145)
== END | disposition home or self-care (01) ==
LOC: LAB 09:33
PROVIDERS: Family Provider Nurse Practitioner; PCP Nurse Practitioner; Referring Provider Physician Assistant Medical; Visit Provider Physician Assistant Medical
DX: R00.1 Bradycardia, unspecified (principal); Z95.2 Presence of prosthetic heart valve; R53.83 Other fatigue
CPT/HCPCS: 36415; 80048; 85025

== ENCOUNTER → 2018-10-07 | Outpatient (CLI) | payer OTHER, SELFPAY ==
[2018-07-23 10:02] VITALS: BMI 31.1
--- NOTE | 2018-10-07 09:01 | STRESSREP_ITS ---
Stress Test Report Exercise myocardial perfusion stress test. 58-year-old man with a history of fatigue. Stress protocol: Resting EKG demonstrates sinus bradycardia with a rate of 47 bpm normal intervals noted resting blood pressures 182/80 mmHg. The patient exercised according to regular Jarod protocol for total duration of 8 minutes and 5 seconds the maximum heart rate attained was 150 bpm which was 93% of maximum predicted heart rate the maximum workload was 10.1 metabolic equivalents. At rest there were no ST or T wave changes noted suggest ischemia peak exercise upsloping ST changes were noted with no meet the criteria for ischemia. No clinical angina was noted the test was terminated due to leg fatigue. The resting blood pressures 180/80 with a peak blood pressure of 184/72. Myocardial perfusion protocol. 11.9 mCi of technetium 99m sestamibi was injected at rest. The patient exercised according to regular Jarod protocol for 8 minutes at peak exercise 33.6 mCi of technetium 99m sestamibi was injected stress images were obtained stress and rest images were reconstructed and compared in the short axis vertical and horizontal long axis. Gated images were also obtained. Perfusion SPECT analysis. Review of the stress images demonstrate normal uptake of tracer noted in all areas of myocardium there is mildly reduced perfusion n oted in the inferior wall on the stress images as well as the resting images. No areas of reversibility are noted suggest ischemia. No clinical angina is noted. Gated SPECT analysis: The gated ejection fraction is noted to be 55% Conclusion: Normal exercise myocardial perfusion stress test at a moderate workload. No clinical angina No ischemia.
== END | disposition home or self-care (01) ==
LOC: NM 06:04
PROVIDERS: Family Provider Nurse Practitioner; PCP Nurse Practitioner; Referring Provider Physician Assistant Medical; Visit Provider Physician Assistant Medical
DX: R00.1 Bradycardia, unspecified (principal); Z95.2 Presence of prosthetic heart valve; R53.83 Other fatigue
CPT/HCPCS: 78452; 93017; A9500; A4216

== ENCOUNTER 2018-10-17 07:57 | Outpatient (RCR) | payer OTHER, SELFPAY ==
[2018-07-23 10:02] VITALS: BMI 31.1
[2018-10-17 08:36] LABS: International Normalized Ratio 2.7; Prothrombin Time (Protime)PT. 28.5 SECONDS (11.7-14.9)
[2018-10-17 08:55] LABS: AST(SGOT) 24 U/L (15-37); Alanine Aminotransfer ALT/SGPT 27 U/L (16-61); Albumin, Serum 3.9 g/dL (3.2-5.0); Alkaline Phosphatase 87 U/L (45-117); Anion Gap 3 (5-15); BUN 16 mg/dL (7-18); BUN/Creat Ratio 13.8 RATIO (10-20); Bilirubin, Direct 0.15 mg/dL (0.00-0.30); Calcium,Total 8.6 mg/dL (8.5-10.1); Chloride 110 mmol/L (98-107); Cholesterol 194 mg/dL (200); Creatinine, Serum 1.16 mg/dL (0.70-1.30); EST Glomerular Filtration Rate 69 mL/min (>60); Est Glom Filt Rate - Afr Amer 83 mL/min (>60); Glucose 94 mg/dL (74-106); High Density Lipoprotein 40 mg/dL; Potassium 4.2 mmol/L (3.5-5.1); Protein, Total 6.9 g/dL (6.4-8.2); Sodium Level 143 mmol/L (136-145); Triglycerides 119 mg/dL; Very Low Density Lipoprotein 24 mg/dL (5-40)
== END 2018-10-18 12:00 | disposition home or self-care (01) ==
LOC: LAB 07:57
PROVIDERS: Family Provider Nurse Practitioner; PCP Nurse Practitioner; Referring Provider Internal Medicine Cardiovascular Disease; Visit Provider Internal Medicine Cardiovascular Disease
DX: I35.9 Nonrheumatic aortic valve disorder, unspecified (principal); Z79.01 Long term (current) use of anticoagulants; Z95.2 Presence of prosthetic heart valve
CPT/HCPCS: 36415; 80048; 80061; 80076; 85610

== ENCOUNTER 2018-11-10 16:09 | Outpatient (RCR) | payer OTHER, SELFPAY ==
[2018-07-23 10:02] VITALS: BMI 31.1
[2018-11-10 17:13] LABS: International Normalized Ratio 3.2
== END 2018-11-18 17:23 | disposition home or self-care (01) ==
LOC: LAB 16:09
PROVIDERS: Family Provider Nurse Practitioner; PCP Nurse Practitioner; Referring Provider Internal Medicine Cardiovascular Disease; Visit Provider Internal Medicine Cardiovascular Disease
DX: I35.9 Nonrheumatic aortic valve disorder, unspecified (principal); Z79.01 Long term (current) use of anticoagulants; Z95.2 Presence of prosthetic heart valve
CPT/HCPCS: 36415; 85610

== ENCOUNTER 2018-12-11 06:34 | Outpatient (RCR) | payer OTHER, SELFPAY ==
[2018-07-23 10:02] VITALS: BMI 31.1
[2018-12-11 07:26] LABS: International Normalized Ratio 2.8; Prothrombin Time (Protime)PT. 29.4 SECONDS (11.7-14.9)
== END 2018-12-11 07:34 | disposition home or self-care (01) ==
LOC: LAB 06:34
PROVIDERS: Family Provider Nurse Practitioner; PCP Nurse Practitioner; Referring Provider Internal Medicine Cardiovascular Disease; Visit Provider Internal Medicine Cardiovascular Disease
DX: I35.9 Nonrheumatic aortic valve disorder, unspecified (principal); Z79.01 Long term (current) use of anticoagulants; Z95.2 Presence of prosthetic heart valve
CPT/HCPCS: 36415; 85610

== ENCOUNTER 2019-01-15 11:22 | Outpatient (RCR) | payer OTHER, SELFPAY ==
[2018-07-23 10:02] VITALS: BMI 31.1
[2019-01-15 11:49] LABS: International Normalized Ratio 2.5; Prothrombin Time (Protime)PT. 26.7 SECONDS (11.7-14.9)
== END 2019-01-18 18:00 | disposition home or self-care (01) ==
LOC: LAB 11:22
PROVIDERS: Family Provider Nurse Practitioner; PCP Nurse Practitioner; Referring Provider Internal Medicine Cardiovascular Disease; Visit Provider Internal Medicine Cardiovascular Disease
DX: I35.9 Nonrheumatic aortic valve disorder, unspecified (principal); Z79.01 Long term (current) use of anticoagulants; Z95.2 Presence of prosthetic heart valve
CPT/HCPCS: 36415; 85610

== ENCOUNTER 2019-02-17 16:17 | Outpatient (RCR) | payer OTHER, SELFPAY ==
[2018-07-23 10:02] VITALS: BMI 31.1
[2019-02-17 17:21] LABS: International Normalized Ratio 2.3; Prothrombin Time (Protime)PT. 24.9 SECONDS (11.7-14.9)
== END 2019-02-17 18:00 | disposition home or self-care (01) ==
LOC: LAB 16:17
PROVIDERS: Family Provider Nurse Practitioner; PCP Nurse Practitioner; Referring Provider Internal Medicine Cardiovascular Disease; Visit Provider Internal Medicine Cardiovascular Disease
DX: I35.9 Nonrheumatic aortic valve disorder, unspecified (principal); Z79.01 Long term (current) use of anticoagulants; Z95.2 Presence of prosthetic heart valve
CPT/HCPCS: 36415; 85610

== ENCOUNTER 2019-03-03 12:23 | Outpatient (RCR) | payer OTHER, SELFPAY ==
[2018-07-23 10:02] VITALS: BMI 31.1
[2019-03-03 13:44] LABS: International Normalized Ratio 2.6; Prothrombin Time (Protime)PT. 27.6 SECONDS (11.7-14.9)
== END 2019-03-03 18:00 | disposition home or self-care (01) ==
LOC: LAB 12:23
PROVIDERS: Family Provider Nurse Practitioner; PCP Nurse Practitioner; Referring Provider Internal Medicine Cardiovascular Disease; Visit Provider Internal Medicine Cardiovascular Disease
DX: I35.9 Nonrheumatic aortic valve disorder, unspecified (principal); Z79.01 Long term (current) use of anticoagulants; Z95.2 Presence of prosthetic heart valve
CPT/HCPCS: 36415; 85610

== ENCOUNTER 2019-03-30 12:19 | Outpatient (RCR) | payer OTHER, SELFPAY ==
[2018-07-23 10:02] VITALS: BMI 31.1
[2019-03-30 13:04] LABS: International Normalized Ratio 2.6; Prothrombin Time (Protime)PT. 28.3 SECONDS (11.7-14.9)
== END 2019-03-30 18:00 | disposition home or self-care (01) ==
LOC: LAB 12:19
PROVIDERS: Family Provider Nurse Practitioner; PCP Nurse Practitioner; Referring Provider Internal Medicine Cardiovascular Disease; Visit Provider Internal Medicine Cardiovascular Disease
DX: I35.9 Nonrheumatic aortic valve disorder, unspecified (principal); Z79.01 Long term (current) use of anticoagulants; Z95.2 Presence of prosthetic heart valve
CPT/HCPCS: 36415; 85610

== ENCOUNTER 2019-05-14 16:15 | Outpatient (RCR) | payer OTHER, SELFPAY ==
[2018-07-23 10:02] VITALS: BMI 31.1
[2019-04-29 17:49] LABS: International Normalized Ratio 2.4
[2019-05-14 18:01] LABS: International Normalized Ratio 2.5; Prothrombin Time (Protime)PT. 26.8 SECONDS (11.7-14.9)
== END 2019-05-14 18:00 | disposition home or self-care (01) ==
LOC: LAB 16:15
PROVIDERS: Family Provider Nurse Practitioner; PCP Nurse Practitioner; Referring Provider Internal Medicine Cardiovascular Disease; Visit Provider Internal Medicine Cardiovascular Disease
DX: I35.9 Nonrheumatic aortic valve disorder, unspecified (principal); Z79.01 Long term (current) use of anticoagulants; Z95.2 Presence of prosthetic heart valve
CPT/HCPCS: 36415; 85610

== ENCOUNTER 2019-06-15 13:05 | Outpatient (RCR) | payer OTHER, SELFPAY ==
[2018-07-23 10:02] VITALS: BMI 31.1
[2019-06-15 15:25] LABS: International Normalized Ratio 2.8; Prothrombin Time (Protime)PT. 29.3 SECONDS (11.7-14.9)
== END 2019-06-15 18:00 | disposition home or self-care (01) ==
LOC: LAB 13:05
PROVIDERS: Family Provider Nurse Practitioner; PCP Nurse Practitioner; Referring Provider Internal Medicine Cardiovascular Disease; Visit Provider Internal Medicine Cardiovascular Disease
DX: I48.91 Unspecified atrial fibrillation (principal); I35.9 Nonrheumatic aortic valve disorder, unspecified; Z79.01 Long term (current) use of anticoagulants
CPT/HCPCS: 36415; 85610

== ENCOUNTER 2019-07-21 14:46 | Outpatient (RCR) | payer OTHER, SELFPAY ==
[2018-07-23 10:02] VITALS: BMI 31.1
[2019-07-21 15:53] LABS: International Normalized Ratio 3.2; Prothrombin Time (Protime)PT. 33.3 SECONDS (11.7-14.9)
== END 2019-08-19 18:00 | disposition home or self-care (01) ==
LOC: LAB 14:46
PROVIDERS: Family Provider Nurse Practitioner; PCP Nurse Practitioner; Referring Provider Internal Medicine Cardiovascular Disease; Visit Provider Internal Medicine Cardiovascular Disease
DX: I48.91 Unspecified atrial fibrillation (principal); I35.9 Nonrheumatic aortic valve disorder, unspecified; Z79.01 Long term (current) use of anticoagulants
CPT/HCPCS: 36415; 85610

== ENCOUNTER 2019-08-21 07:44 | Outpatient (RCR) | payer OTHER, SELFPAY ==
[2019-08-16 15:41] VITALS: BMI 31.1
[2019-08-21 08:06] LABS: Absolute Lymphocyte Count 1.38 X10^3/uL (0.83-4.51); Absolute Neutrophil Count 5.1 X10^3/uL (2.0-7.7); Basophil# 0.05 X10^3/uL; Basophil% 0.7 % (0-1); Eosinophils% 2.7 % (0-5); Hematocrit 43.3 % (40-54); Hemoglobin 14.2 g/dL (13.0-16.5); Lymphocyte # 1.38 X10^3/ul (4.0); Lymphocyte % 18.7 % (19-41); Mean Corp Hgb Conc 32.8 g/dL (32-36); Mean Corpuscular Hgb 29.3 pg (27.0-32.0); Mean Corpuscular Volume 89.5 fL (80-94); Mean Platelet Vol. 10.1 fl (6.2-12.0); Monocyte# 0.64 X10^3/uL; Monocyte% 8.7 % (0-10); NRBC Flagged by Analyzer 0 % (0-5); Neutrophil # 5.07 X10^3/uL (2.7-7.7); Neutrophil % 68.8 % (47-70); Platelet Count 195 K/mm3 (150-450); RBC Distribution Width CV 12.3 % (11.6-14.6); RBC Distribution Width SD 40.4 fl (35.1-43.9); Red Blood Count 4.84 M/mm3 (4.6-6.2); White Blood Count 7.4 K/mm3 (4.4-11.0)
[2019-08-21 08:25] LABS: AST(SGOT) 27 U/L (15-37); Alanine Aminotransfer ALT/SGPT 31 U/L (16-61); Albumin, Serum 3.9 g/dL (3.2-5.0); Alkaline Phosphatase 80 U/L (45-117); Anion Gap 6 (5-15); BUN 21 mg/dL (7-18); BUN/Creat Ratio 17.2 RATIO (10-20); Bilirubin, Direct 0.14 mg/dL (0.00-0.30); Chloride 107 mmol/L (98-107); Cholesterol 224 mg/dL (200); Creatinine, Serum 1.22 mg/dL (0.70-1.30); EST Glomerular Filtration Rate 64 mL/min (>60); Est Glom Filt Rate - Afr Amer 78 mL/min (>60); Globulin 3.4 g/dL (2.2-4.2); Glucose 98 mg/dL (74-106); High Density Lipoprotein 41 mg/dL; Protein, Total 7.3 g/dL (6.4-8.2); Sodium Level 138 mmol/L (136-145); Thyroid Stim Hormone (TSH) 3.26 uIU/mL (0.358-3.74); Triglycerides 158 mg/dL; Very Low Density Lipoprotein 32 mg/dL (5-40)
[2019-08-21 08:44] LABS: International Normalized Ratio 2.7; Prothrombin Time (Protime)PT. 27.8 SECONDS (11.7-14.9)
== END 2019-08-21 18:00 | disposition home or self-care (01) ==
LOC: LAB 07:44
PROVIDERS: Physician Assistant Medical; Family Provider Nurse Practitioner; PCP Nurse Practitioner; Referring Provider Internal Medicine Cardiovascular Disease; Visit Provider Internal Medicine Cardiovascular Disease
DX: I48.91 Unspecified atrial fibrillation (principal); I35.9 Nonrheumatic aortic valve disorder, unspecified; Z79.01 Long term (current) use of anticoagulants
CPT/HCPCS: 36415; 80048; 80061; 80076; 84443; 85025; 85610

== ENCOUNTER → 2019-09-02 12:51 | Outpatient (CLI) | payer OTHER, SELFPAY ==
[2019-08-16 15:41] VITALS: BMI 31.1
--- NOTE | 2019-09-02 12:52 | ECHOD_ITS ---
Reason For Study: AVR, SOB, fatigue Procedure This was a 2D Doppler, Color Flow transthoracic echocardiogram. Exam performed in department. Left Ventricle Normal LV size. Left ventricular systolic function is normal. The estimated ejection fraction is 55 %. No regional wall motion abnormalities noted. Right Ventricle Normal RV size. Normal systolic function. Atria Normal left atrium. Normal right atrium. Mitral Valve Normal mitral valve. Mild (1+) mitral valve insufficiency. Tricuspid Valve Normal tricuspid valve. Aortic Valve Calculated aortic valve area (continuity equation) is 2.0 cm2. Mean aortic valve gradient 6 mmHg. Stable appearing mechanical aortic valve apparatus. Bileaflet mechanical aortic valve. Pulmonic Valve Normal pulmonic valve. Great Vessels Normal aortic root. The pulmonary artery is normal size. Normal inferior vena cava. Pericardium/Pleural No pericardial effusion. MMode/2D Measurements & Calculations LVIDd: 4.6 cm IVSd: 1.1 cm LVOT diam: 2.1 cm LVIDs: 2.9 cm LVPWd: 1.1 cm LVOT area: 3.5 cm2 RVDd: 3.7 cm FS: 36.6 % Ao root diam: 3.2 cm LAV(MOD-bp): 59.9 ml EDV(MOD-sp4): 142.6 ml LAV(MOD-bp) Indexed: 29.6 ml/m2 ESV(MOD-sp4): 52.8 ml LAV(MOD-sp2): 78.5 ml EF(MOD-sp4): 63.0 % LAV(MOD-sp4): 40.2 ml EDV(MOD-sp2): 152.2 ml SV(MOD-sp4): 89.8 ml SV(MOD-sp2): 88.4 ml EF(MOD-sp2): 58.1 % LA A4 area: 16.2 cm2 LA dimension(2D): 4.0 cm RA A4 area: 15.0 cm2 Doppler Measurements & Calculations MV E max jamil: 64.7 cm/sec Lat Peak E' Jamil: 9.7 cm/sec Med Peak E' Jamil: 6.9 cm/sec MV A max jamil: 59.5 cm/sec E/E' lat: 6.7 E/E' med: 9.4 MV E/A: 1.1 Ao V2 max: 176.9 cm/sec LV V1 max: 99.2 cm/sec SV(LVOT): 68.4 ml Ao max P.6 mmHg LV V1 max P.9 mmHg Ao V2 mean: 113.9 cm/sec LV V1 mean P.9 mmHg Ao mean P.0 mmHg LV V1 mean: 64.2 cm/sec Ao V2 VTI: 31.0 cm LV V1 VTI: 19.7 cm SHOLA(I,D): 2.2 cm2 SHOLA(V,D): 2.0 cm2 PA V2 max: 101.7 cm/sec TR max jamil: 245.7 cm/sec TR max P.1 mmHg Interpretation Summary Normal LV size. Left ventricular systolic function is normal. The estimated ejection fraction is 55 %. Bileaflet mechanical aortic valve. Stable appearing mechanical aortic valve apparatus. Calculated aortic valve area (continuity equation) is 2.0 cm2. Mean aortic valve gradient 6 mmHg. Ordering Physician: Keisha Montana/Rad Salamanca Referring Physician: Lisa Mcconnell Performed By: Itzel White RDCS
== END ==
PROVIDERS: PCP Nurse Practitioner; Referring Provider Physician Assistant Medical; Visit Provider Physician Assistant Medical
DX: I48.91 Unspecified atrial fibrillation (principal); Z95.2 Presence of prosthetic heart valve; E78.5 Hyperlipidemia, unspecified; I10 Essential (primary) hypertension; R06.00 Dyspnea, unspecified; R53.83 Other fatigue
CPT/HCPCS: 93306

== ENCOUNTER 2019-09-27 10:19 | Outpatient (RCR) | payer OTHER, SELFPAY ==
[2019-08-16 15:41] VITALS: BMI 31.1
[2019-09-27 11:31] LABS: International Normalized Ratio 3.1; Prothrombin Time (Protime)PT. 31.5 SECONDS (11.7-14.9)
== END 2019-09-27 18:00 | disposition home or self-care (01) ==
LOC: LAB 10:19
PROVIDERS: Family Provider Nurse Practitioner; PCP Nurse Practitioner; Referring Provider Internal Medicine Cardiovascular Disease; Visit Provider Internal Medicine Cardiovascular Disease
DX: I48.91 Unspecified atrial fibrillation (principal); I35.9 Nonrheumatic aortic valve disorder, unspecified; Z79.01 Long term (current) use of anticoagulants
CPT/HCPCS: 36415; 85610

== ENCOUNTER → 2019-09-27 | Outpatient (CLI) | payer OTHER, SELFPAY ==
[2019-08-16 15:41] VITALS: BMI 31.1
--- NOTE | 2019-09-27 14:10 | PFTCOMP ---
COMPLETE PULMONARY FUNCTION TEST INTERPRETATION Brief HPI: Patient is a 59 year old male, currently under the care of Keisha Motnana, who presents to [facility] for complete pulmonary function tests secondary to diagnosis of dyspnea. Respiratory therapist reports good effort and reproducible results. Interpretation: Forced expiration spirometry shows no large airways obstructive ventilatory defect with an FEV1 of 86% predicted. There is no significant bronchodilator response by strict ATS criteria. Spirograms are of good quality and plateau normally. The respiratory flow volume loop shows a normal pattern. Lung volumes by body plethysmography show a slightly decreased total lung capacity at 5.11 L, 83% predicted. All other lung volumes are reduced symmetrically. Diffusion capacity by carbon monoxide is normal at 110% predicted. The airway resistance is normal. No previous pulmonary function tests were available for review. Impression: Mild restrictive ventilatory defect with a preserved diffusion capacity and a pattern consistent with musculoskeletal limitation.
== END | disposition home or self-care (01) ==
PROVIDERS: PCP Nurse Practitioner; Referring Provider Physician Assistant Medical; Visit Provider Physician Assistant Medical
DX: R06.00 Dyspnea, unspecified (principal)
CPT/HCPCS: 94060; 94726; 94729

== ENCOUNTER 2019-10-30 10:22 | Outpatient (RCR) | payer OTHER, SELFPAY ==
[2019-08-16 15:41] VITALS: BMI 31.1
--- NOTE | 2019-10-30 10:36 | RAD_ITS ---
STUDY: X-RAY CHEST REASON FOR EXAM: Male, 59 years old. SOB. HX OF VALVE AND AORTA SURGERY 2003 TECHNIQUE: PA and lateral views of the chest. COMPARISON: None. FINDINGS: Status post heart valve replacement surgery. The lungs are clear and expanded. There is no demonstrated pleural abnormality. Normal size heart. Normal mediastinum and candy. Normal visualized pulmonary arteries. Normal visualized aortic arch and descending thoracic aorta. Normal visualized thoracic spine. Normal visualized ribs, clavicles, and shoulders. There is no demonstrated abnormality of the visualized soft tissue structures of the upper abdomen. RAD/Chest PA and Lateral IMPRESSION: Normal x-ray examination of the chest. Electronically Signed: Hiren Guzman MD at 11:00 EDT Tel , Service support ,
[2019-10-30 11:12] LABS: Prothrombin Time (Protime)PT. 30.5 SECONDS (11.7-14.9)
== END 2019-10-30 18:00 | disposition home or self-care (01) ==
LOC: LAB 10:22
PROVIDERS: Family Provider Nurse Practitioner; PCP Nurse Practitioner; Referring Provider Internal Medicine Cardiovascular Disease; Visit Provider Internal Medicine Cardiovascular Disease
DX: I48.91 Unspecified atrial fibrillation (principal); I35.9 Nonrheumatic aortic valve disorder, unspecified; Z79.01 Long term (current) use of anticoagulants
CPT/HCPCS: 36415; 71046; 85610

== ENCOUNTER 2019-12-01 07:19 | Outpatient (RCR) | payer OTHER, SELFPAY ==
[2019-08-16 15:41] VITALS: BMI 31.1
[2019-12-01 08:29] LABS: International Normalized Ratio 3.1; Prothrombin Time (Protime)PT. 31.3 SECONDS (11.7-14.9)
== END 2019-12-20 18:00 | disposition home or self-care (01) ==
LOC: LAB 07:19
PROVIDERS: Family Provider Nurse Practitioner; PCP Nurse Practitioner; Referring Provider Internal Medicine Cardiovascular Disease; Visit Provider Internal Medicine Cardiovascular Disease
DX: I48.91 Unspecified atrial fibrillation (principal); I35.9 Nonrheumatic aortic valve disorder, unspecified; Z79.01 Long term (current) use of anticoagulants
CPT/HCPCS: 36415; 85610

== ENCOUNTER 2019-12-31 09:48 | Outpatient (RCR) | payer OTHER, SELFPAY ==
[2019-08-16 15:41] VITALS: BMI 31.1
[2019-12-31 10:26] LABS: International Normalized Ratio 3.2; Prothrombin Time (Protime)PT. 32.2 SECONDS (11.7-14.9)
== END 2019-12-31 18:00 | disposition home or self-care (01) ==
LOC: LAB 09:48
PROVIDERS: Family Provider Nurse Practitioner; PCP Nurse Practitioner; Referring Provider Internal Medicine Cardiovascular Disease; Visit Provider Internal Medicine Cardiovascular Disease
DX: I48.91 Unspecified atrial fibrillation (principal); I35.9 Nonrheumatic aortic valve disorder, unspecified; Z79.01 Long term (current) use of anticoagulants
CPT/HCPCS: 36415; 85610

== ENCOUNTER 2020-01-28 09:39 | Outpatient (RCR) | payer OTHER, SELFPAY ==
[2019-08-16 15:41] VITALS: BMI 31.1
[2020-01-28 11:18] LABS: International Normalized Ratio 3.1; Prothrombin Time (Protime)PT. 31.9 SECONDS (11.7-14.9)
== END 2020-01-28 18:00 | disposition home or self-care (01) ==
LOC: LAB 09:39
PROVIDERS: Family Provider Nurse Practitioner; PCP Nurse Practitioner; Referring Provider Internal Medicine Cardiovascular Disease; Visit Provider Internal Medicine Cardiovascular Disease
DX: I48.91 Unspecified atrial fibrillation (principal); I35.9 Nonrheumatic aortic valve disorder, unspecified; Z79.01 Long term (current) use of anticoagulants
CPT/HCPCS: 36415; 85610

== ENCOUNTER 2020-03-04 07:47 | Outpatient (RCR) | payer OTHER, SELFPAY ==
[2019-08-16 15:41] VITALS: BMI 31.1
[2020-03-04 09:06] LABS: International Normalized Ratio 3.4
[2020-03-04 09:24] LABS: AST(SGOT) 25 U/L (15-37); Alanine Aminotransfer ALT/SGPT 26 U/L (16-61); Albumin, Serum 3.8 g/dL (3.2-5.0); Alkaline Phosphatase 79 U/L (45-117); Bilirubin, Direct 0.12 mg/dL (0.00-0.30); Cholesterol 185 mg/dL (200); Globulin 3.4 g/dL (2.2-4.2); High Density Lipoprotein 37 mg/dL; Protein, Total 7.2 g/dL (6.4-8.2); Triglycerides 116 mg/dL; Very Low Density Lipoprotein 23 mg/dL (5-40)
== END 2020-03-04 18:00 | disposition home or self-care (01) ==
LOC: LAB 07:47
PROVIDERS: Physician Assistant Medical; Family Provider Nurse Practitioner; PCP Nurse Practitioner; Referring Provider Internal Medicine Cardiovascular Disease; Visit Provider Internal Medicine Cardiovascular Disease
DX: I48.91 Unspecified atrial fibrillation (principal); I35.9 Nonrheumatic aortic valve disorder, unspecified; Z79.01 Long term (current) use of anticoagulants; E78.00 Pure hypercholesterolemia, unspecified
CPT/HCPCS: 36415; 80061; 80076; 85610

== ENCOUNTER 2020-04-13 11:20 | Outpatient (RCR) | payer OTHER, SELFPAY ==
[2019-08-16 15:41] VITALS: BMI 31.1
[2020-03-31 10:27] LABS: International Normalized Ratio 2.4; Prothrombin Time (Protime)PT. 25.5 SECONDS (11.7-14.9)
[2020-04-13 11:54] LABS: International Normalized Ratio 2.8; Prothrombin Time (Protime)PT. 29.5 SECONDS (11.7-14.9)
== END 2020-04-13 18:00 | disposition home or self-care (01) ==
LOC: LAB 11:20
PROVIDERS: Family Provider Nurse Practitioner; PCP Nurse Practitioner; Referring Provider Internal Medicine Cardiovascular Disease; Visit Provider Internal Medicine Cardiovascular Disease
DX: I48.91 Unspecified atrial fibrillation (principal); I35.9 Nonrheumatic aortic valve disorder, unspecified; Z79.01 Long term (current) use of anticoagulants
CPT/HCPCS: 36415; 85610

== ENCOUNTER 2020-05-12 10:34 | Outpatient (RCR) | payer OTHER, SELFPAY ==
[2019-08-16 15:41] VITALS: BMI 31.1
[2020-05-12 11:49] LABS: International Normalized Ratio 3.2
== END 2020-05-12 18:00 | disposition home or self-care (01) ==
LOC: LAB 10:34
PROVIDERS: Family Provider Nurse Practitioner; PCP Nurse Practitioner; Referring Provider Internal Medicine Cardiovascular Disease; Visit Provider Internal Medicine Cardiovascular Disease
DX: I48.91 Unspecified atrial fibrillation (principal); I35.9 Nonrheumatic aortic valve disorder, unspecified; Z79.01 Long term (current) use of anticoagulants
CPT/HCPCS: 36415; 85610

== ENCOUNTER 2020-06-09 11:55 | Outpatient (RCR) | payer OTHER, SELFPAY ==
[2019-08-16 15:41] VITALS: BMI 31.1
[2020-06-09 14:02] LABS: International Normalized Ratio 3.4; Prothrombin Time (Protime)PT. 34.1 SECONDS (11.7-14.9)
== END 2020-06-09 18:00 | disposition home or self-care (01) ==
LOC: LAB 11:55
PROVIDERS: Family Provider Nurse Practitioner; PCP Nurse Practitioner; Referring Provider Internal Medicine Cardiovascular Disease; Visit Provider Internal Medicine Cardiovascular Disease
DX: E78.5 Hyperlipidemia, unspecified (principal); I10 Essential (primary) hypertension; I48.91 Unspecified atrial fibrillation; I35.9 Nonrheumatic aortic valve disorder, unspecified; Z79.01 Long term (current) use of anticoagulants; R00.2 Palpitations; Z95.2 Presence of prosthetic heart valve
CPT/HCPCS: 36415; 85610

== ENCOUNTER 2020-07-06 16:16 | Outpatient (RCR) | payer OTHER, SELFPAY ==
[2019-08-16 15:41] VITALS: BMI 31.1
[2020-07-06 17:39] LABS: International Normalized Ratio 2.2; Prothrombin Time (Protime)PT. 23.8 SECONDS (11.7-14.9)
== END 2020-07-06 18:00 | disposition home or self-care (01) ==
LOC: LAB 16:16
PROVIDERS: Family Provider Nurse Practitioner; PCP Nurse Practitioner; Referring Provider Internal Medicine Cardiovascular Disease; Visit Provider Internal Medicine Cardiovascular Disease
DX: E78.5 Hyperlipidemia, unspecified (principal); I10 Essential (primary) hypertension; I48.91 Unspecified atrial fibrillation; I35.9 Nonrheumatic aortic valve disorder, unspecified; R00.2 Palpitations; Z79.01 Long term (current) use of anticoagulants; Z95.2 Presence of prosthetic heart valve
CPT/HCPCS: 36415; 85610

== ENCOUNTER → 2020-07-27 13:29 | Outpatient (CLI) | payer OTHER, SELFPAY ==
[2020-07-21 13:41] VITALS: BMI 29.6
--- NOTE | 2020-07-27 13:34 | ECHOD_ITS ---
Reason For Study: AVR Procedure This was a 2D Doppler, Color Flow transthoracic echocardiogram. Exam performed in department. Left Ventricle Normal LV size. Left ventricular systolic function is lower limits of normal. The estimated ejection fraction is 50 %. No regional wall motion abnormalities noted. Right Ventricle Normal RV size. Normal systolic function. Atria Normal left atrium. Normal right atrium. Mitral Valve Normal mitral valve. Tricuspid Valve Normal tricuspid valve. Mild (1+) tricuspid valve insufficiency. Pulmonary artery systolic pressure is 30 mmHg. Aortic Valve Peak aortic valve gradient 13 mmHg. Mean aortic valve gradient 7 mmHg. Calculated aortic valve area (continuity equation) is 1.8 cm2. Stable appearing mechanical aortic valve apparatus. Pulmonic Valve Normal pulmonic valve. Great Vessels Normal aortic root. The pulmonary artery is normal size. Normal inferior vena cava. Pericardium/Pleural No pericardial effusion. MMode/2D Measurements & Calculations LVIDd: 4.5 cm IVSd: 0.72 cm LVOT diam: 2.0 cm LVIDs: 3.5 cm LVPWd: 0.81 cm LVOT area: 3.1 cm2 RVDd: 3.9 cm FS: 23.1 % Ao root diam: 3.3 cm LAV(MOD-bp): 41.6 ml LA A4 area: 16.6 cm2 LAV(MOD-bp) Indexed: 20.6 ml/m2 LAV(MOD-sp2): 35.5 ml LAV(MOD-sp4): 43.1 ml RA A4 area: 14.0 cm2 Time Measurements MV dec time: 0.23 sec Doppler Measurements & Calculations MV E max jamil: 69.9 cm/sec Lat Peak E' Jamil: 9.9 cm/sec Med Peak E' Jamil: 7.3 cm/sec MV A max jamil: 58.6 cm/sec E/E' lat: 7.0 E/E' med: 9.6 MV E/A: 1.2 Ao V2 max: 180.4 cm/sec LV V1 max: 102.9 cm/sec SV(LVOT): 67.3 ml Ao max P.0 mmHg LV V1 max P.2 mmHg Ao V2 mean: 129.2 cm/sec LV V1 mean P.4 mmHg Ao mean P.4 mmHg LV V1 mean: 72.4 cm/sec Ao V2 VTI: 34.6 cm LV V1 VTI: 21.4 cm SHOLA(I,D): 1.9 cm2 SHOLA(V,D): 1.8 cm2 PA V2 max: 100.9 cm/sec TR max jamil: 256.0 cm/sec TR max P.2 mmHg ECHO/Echo Complete Interpretation Summary Normal LV size. Left ventricular systolic function is lower limits of normal. The estimated ejection fraction is 50 %. Pulmonary artery systolic pressure is 30 mmHg. The global longitudinal strain is normal. The global longitudinal strain = -18. 5 % (normal). Ordering Physician: Rad Salamanca Referring Physician: YASMIN GUERRERO Performed By: Ayanna Casanova, RDCS, RVT
== END ==
PROVIDERS: PCP Nurse Practitioner; Visit Provider Internal Medicine Cardiovascular Disease
DX: Z95.2 Presence of prosthetic heart valve (principal)
CPT/HCPCS: 93306

== ENCOUNTER 2020-08-18 15:06 | Outpatient (RCR) | payer OTHER, SELFPAY ==
[2019-08-16 15:41] VITALS: BMI 31.1
[2020-07-21 14:37] LABS: International Normalized Ratio 2.7; Prothrombin Time (Protime)PT. 28.2 SECONDS (11.7-14.9)
[2020-08-18 17:24] LABS: International Normalized Ratio 3.6; Prothrombin Time (Protime)PT. 35.2 SECONDS (11.7-14.9)
== END 2020-08-18 18:00 | disposition home or self-care (01) ==
LOC: LAB 15:06
PROVIDERS: Family Provider Nurse Practitioner; PCP Nurse Practitioner; Referring Provider Internal Medicine Cardiovascular Disease; Visit Provider Internal Medicine Cardiovascular Disease
DX: I48.91 Unspecified atrial fibrillation (principal); I35.9 Nonrheumatic aortic valve disorder, unspecified; I10 Essential (primary) hypertension; E78.5 Hyperlipidemia, unspecified; R00.1 Bradycardia, unspecified; R00.2 Palpitations; Z95.2 Presence of prosthetic heart valve; Z79.01 Long term (current) use of anticoagulants
CPT/HCPCS: 36415; 85610

== ENCOUNTER 2020-09-01 16:17 | Outpatient (RCR) | payer OTHER, SELFPAY ==
[2020-07-21 13:41] VITALS: BMI 29.6
[2020-09-01 17:38] LABS: International Normalized Ratio 2.9; Prothrombin Time (Protime)PT. 29.9 SECONDS (11.7-14.9)
== END 2020-09-01 18:00 | disposition home or self-care (01) ==
LOC: LAB 16:17
PROVIDERS: Family Provider Nurse Practitioner; PCP Nurse Practitioner; Referring Provider Internal Medicine Cardiovascular Disease; Visit Provider Internal Medicine Cardiovascular Disease
DX: Z79.01 Long term (current) use of anticoagulants (principal); I48.91 Unspecified atrial fibrillation; I35.9 Nonrheumatic aortic valve disorder, unspecified; I10 Essential (primary) hypertension; E78.5 Hyperlipidemia, unspecified; R00.1 Bradycardia, unspecified; R00.2 Palpitations; Z95.2 Presence of prosthetic heart valve
CPT/HCPCS: 36415; 85610

== ENCOUNTER 2020-09-29 16:24 | Outpatient (RCR) | payer OTHER, SELFPAY ==
[2020-07-21 13:41] VITALS: BMI 29.6
[2020-09-29 17:20] LABS: International Normalized Ratio 3.1; Prothrombin Time (Protime)PT. 31.1 SECONDS (11.7-14.9)
== END 2020-09-29 18:00 | disposition home or self-care (01) ==
LOC: LAB 16:24
PROVIDERS: Family Provider Nurse Practitioner; PCP Nurse Practitioner; Referring Provider Internal Medicine Cardiovascular Disease; Visit Provider Internal Medicine Cardiovascular Disease
DX: I48.91 Unspecified atrial fibrillation (principal); I35.9 Nonrheumatic aortic valve disorder, unspecified; I10 Essential (primary) hypertension; E78.5 Hyperlipidemia, unspecified; R00.1 Bradycardia, unspecified; R00.2 Palpitations; Z95.2 Presence of prosthetic heart valve; Z79.01 Long term (current) use of anticoagulants
CPT/HCPCS: 36415; 85610

== ENCOUNTER → 2020-10-03 15:27 | Outpatient (CLI) | payer OTHER, SELFPAY ==
[2020-07-21 13:41] VITALS: BMI 29.6
--- NOTE | 2020-10-03 15:29 | RAD_ITS ---
INDICATION: COUGH EXAMINATION/TECHNIQUE: X-RAY - XR Chest 2 Views COMPARISON: 10/30/2019. FINDINGS: The lungs are clear. The cardiomediastinal silhouette is unremarkable. Median sternotomy wires present. Aortic valve replacement present. No pleural effusion or pneumothorax. No acute osseous abnormalities. RAD/Chest PA and Lateral IMPRESSION: No acute radiographic abnormalities. Electronically Signed: Griffin Bender MD at 21:00 EDT Tel , Service support ,
== END ==
PROVIDERS: PCP Nurse Practitioner; Referring Provider Nurse Practitioner; Visit Provider Nurse Practitioner
DX: R05 Cough (principal)
CPT/HCPCS: 71046

== ENCOUNTER → 2020-11-16 13:46 | Outpatient (CLI) | payer OTHER, SELFPAY ==
[2020-07-21 13:41] VITALS: BMI 29.6
== END ==
PROVIDERS: PCP Nurse Practitioner; Referring Provider Internal Medicine Cardiovascular Disease; Visit Provider Internal Medicine Cardiovascular Disease
DX: I48.0 Paroxysmal atrial fibrillation (principal); R00.2 Palpitations; R00.1 Bradycardia, unspecified; E78.2 Mixed hyperlipidemia; I10 Essential (primary) hypertension; Q23.1 Congenital insufficiency of aortic valve; Z79.01 Long term (current) use of anticoagulants; Z95.2 Presence of prosthetic heart valve
CPT/HCPCS: 93225; 93226

== ENCOUNTER 2020-11-17 14:53 | Outpatient (RCR) | payer OTHER, SELFPAY ==
[2020-07-21 13:41] VITALS: BMI 29.6
[2020-10-27 17:23] LABS: International Normalized Ratio 3.9; Prothrombin Time (Protime)PT. 37.2 SECONDS (11.7-14.9)
[2020-11-10 16:52] LABS: International Normalized Ratio 3.7; Prothrombin Time (Protime)PT. 35.7 SECONDS (11.7-14.9)
[2020-11-17 17:56] LABS: International Normalized Ratio 3.7; Prothrombin Time (Protime)PT. 35.9 SECONDS (11.7-14.9)
== END 2020-11-17 18:00 | disposition home or self-care (01) ==
LOC: LAB 14:53
PROVIDERS: Family Provider Nurse Practitioner; PCP Nurse Practitioner; Referring Provider Internal Medicine Cardiovascular Disease; Visit Provider Internal Medicine Cardiovascular Disease
DX: I48.91 Unspecified atrial fibrillation (principal); I35.9 Nonrheumatic aortic valve disorder, unspecified; I10 Essential (primary) hypertension; E78.5 Hyperlipidemia, unspecified; R00.1 Bradycardia, unspecified; R00.2 Palpitations; Z95.2 Presence of prosthetic heart valve; Z79.01 Long term (current) use of anticoagulants
CPT/HCPCS: 36415; 85610

== ENCOUNTER 2020-12-01 15:54 | Outpatient (RCR) | payer OTHER, SELFPAY ==
[2020-07-21 13:41] VITALS: BMI 29.6
[2020-12-01 18:15] LABS: International Normalized Ratio 2.9; Prothrombin Time (Protime)PT. 29.4 SECONDS (11.7-14.9)
== END 2020-12-01 18:00 | disposition home or self-care (01) ==
LOC: LAB 15:54
PROVIDERS: Family Provider Nurse Practitioner; PCP Nurse Practitioner; Referring Provider Internal Medicine Cardiovascular Disease; Visit Provider Internal Medicine Cardiovascular Disease
DX: I48.91 Unspecified atrial fibrillation (principal); I35.9 Nonrheumatic aortic valve disorder, unspecified; I10 Essential (primary) hypertension; E78.5 Hyperlipidemia, unspecified; R00.1 Bradycardia, unspecified; R00.2 Palpitations; Z95.2 Presence of prosthetic heart valve; Z79.01 Long term (current) use of anticoagulants
CPT/HCPCS: 36415; 85610

== ENCOUNTER 2020-12-21 14:14 | Outpatient (RCR) | payer OTHER, SELFPAY ==
[2020-12-20 01:13] VITALS: BMI 29.6
[2020-12-21 15:22] LABS: International Normalized Ratio 3.1
== END 2020-12-21 18:00 | disposition home or self-care (01) ==
LOC: LAB 14:14
PROVIDERS: Family Provider Nurse Practitioner; PCP Nurse Practitioner; Referring Provider Internal Medicine Cardiovascular Disease; Visit Provider Internal Medicine Cardiovascular Disease
DX: I48.91 Unspecified atrial fibrillation (principal); I35.9 Nonrheumatic aortic valve disorder, unspecified; I10 Essential (primary) hypertension; E78.5 Hyperlipidemia, unspecified; R00.1 Bradycardia, unspecified; R00.2 Palpitations; Z95.2 Presence of prosthetic heart valve; Z79.01 Long term (current) use of anticoagulants
CPT/HCPCS: 36415; 85610

== ENCOUNTER 2021-02-16 16:09 | Outpatient (RCR) | payer OTHER, SELFPAY ==
[2021-01-19 00:44] VITALS: BMI 29.6
[2021-01-19 09:51] LABS: Prothrombin Time (Protime)PT. 30.3 SECONDS (11.7-14.9)
[2021-02-16 17:04] LABS: International Normalized Ratio 1.5; Prothrombin Time (Protime)PT. 17.7 SECONDS (11.7-14.9)
== END 2021-02-18 05:22 | disposition home or self-care (01) ==
LOC: LAB 16:09
PROVIDERS: Family Provider Nurse Practitioner; PCP Nurse Practitioner; Referring Provider Internal Medicine Cardiovascular Disease; Visit Provider Internal Medicine Cardiovascular Disease
DX: I10 Essential (primary) hypertension (principal); I48.91 Unspecified atrial fibrillation; I35.9 Nonrheumatic aortic valve disorder, unspecified; E78.5 Hyperlipidemia, unspecified; R00.1 Bradycardia, unspecified; R00.2 Palpitations; Z95.2 Presence of prosthetic heart valve; Z79.01 Long term (current) use of anticoagulants
CPT/HCPCS: 36415; 85610

== ENCOUNTER 2021-02-27 16:34 | Outpatient (RCR) | payer OTHER, SELFPAY ==
[2021-02-18 05:22] VITALS: BMI 29.6
[2021-02-27 17:33] LABS: International Normalized Ratio 2.8; Prothrombin Time (Protime)PT. 28.9 SECONDS (11.7-14.9)
== END 2021-03-20 18:00 | disposition home or self-care (01) ==
LOC: LAB 16:34
PROVIDERS: Family Provider Nurse Practitioner; PCP Nurse Practitioner; Referring Provider Internal Medicine Cardiovascular Disease; Visit Provider Internal Medicine Cardiovascular Disease
DX: Z79.01 Long term (current) use of anticoagulants (principal); I10 Essential (primary) hypertension; I48.91 Unspecified atrial fibrillation; I35.9 Nonrheumatic aortic valve disorder, unspecified; E78.5 Hyperlipidemia, unspecified; R00.1 Bradycardia, unspecified; R00.2 Palpitations; Z95.2 Presence of prosthetic heart valve
CPT/HCPCS: 36415; 85610

== ENCOUNTER 2021-04-09 16:16 | Outpatient (RCR) | payer OTHER, SELFPAY ==
[2021-03-21 02:32] VITALS: BMI 29.6
[2021-03-30 17:14] LABS: International Normalized Ratio 2.9; Prothrombin Time (Protime)PT. 29.5 SECONDS (11.7-14.9)
[2021-04-09 17:18] LABS: International Normalized Ratio 2.9; Prothrombin Time (Protime)PT. 29.2 SECONDS (11.7-14.9)
== END 2021-04-21 18:00 | disposition home or self-care (01) ==
LOC: LAB 16:16
PROVIDERS: Family Provider Nurse Practitioner; PCP Nurse Practitioner; Referring Provider Internal Medicine Cardiovascular Disease; Visit Provider Internal Medicine Cardiovascular Disease
DX: I10 Essential (primary) hypertension (principal); I48.91 Unspecified atrial fibrillation; I35.9 Nonrheumatic aortic valve disorder, unspecified; E78.5 Hyperlipidemia, unspecified; R00.1 Bradycardia, unspecified; R00.2 Palpitations; Z95.2 Presence of prosthetic heart valve; Z79.01 Long term (current) use of anticoagulants
CPT/HCPCS: 36415; 85610

== ENCOUNTER 2021-05-15 12:08 | Outpatient (CLI) | payer OTHER, SELFPAY ==
--- NOTE | 2021-05-15 12:11 | RAD_ITS ---
STUDY: X-RAY CHEST REASON FOR EXAM: Male, 60 years old. COUGH TECHNIQUE: PA and lateral views of the chest. COMPARISON: Comparison is made with prior study dated 10/03/2020. FINDINGS: The lungs are clear and expanded. There is no demonstrated pleural abnormality. Sternal cerclage wires are present from a prior sternotomy. The patient is status post mitral valve replacement. Normal mediastinum and candy. Normal visualized pulmonary arteries. There is atherosclerotic tortuosity of the aortic arch and descending thoracic aorta. There are diffuse degenerative changes of the visualized thoracic spine. Normal visualized ribs, clavicles, and shoulders. There is no demonstrated abnormality of the visualized soft tissue structures of the upper abdomen. RAD/Chest PA and Lateral IMPRESSION: No acute abnormality is seen. Electronically Signed: Connor Haider MD at 15:17 EST ,
== END 2021-05-15 23:59 | disposition short-term general hospital (02) ==
PROVIDERS: PCP Nurse Practitioner; Referring Provider Nurse Practitioner; Visit Provider Nurse Practitioner
DX: R05.9 Cough, unspecified (principal)
CPT/HCPCS: 71046

== ENCOUNTER 2021-05-15 12:12 | Outpatient (RCR) | payer OTHER, SELFPAY ==
[2021-04-23 02:45] VITALS: BMI 29.6
[2021-05-15 15:34] LABS: Prothrombin Time (Protime)PT. 30.3 SECONDS (11.7-14.9)
== END 2021-05-21 18:00 | disposition home or self-care (01) ==
LOC: LAB 12:12
PROVIDERS: Family Provider Nurse Practitioner; PCP Nurse Practitioner; Referring Provider Internal Medicine Cardiovascular Disease; Visit Provider Internal Medicine Cardiovascular Disease
DX: I35.9 Nonrheumatic aortic valve disorder, unspecified (principal); I48.91 Unspecified atrial fibrillation; E78.5 Hyperlipidemia, unspecified; I10 Essential (primary) hypertension; R00.2 Palpitations; Z95.2 Presence of prosthetic heart valve; R00.1 Bradycardia, unspecified; Z79.01 Long term (current) use of anticoagulants
CPT/HCPCS: 36415; 85610

== ENCOUNTER 2021-05-28 11:21 | Observation (INO) | payer OTHER, SELFPAY ==
[2021-05-28 11:23] VITALS: BP 135/77; PULSE 78; RESP 16; TEMP 36.3; O2SAT 100; BMI 29.5
--- NOTE | 2021-05-28 11:40 | EKG12_ITS ---
Test Reason : BACK Blood Pressure : / mmHG Vent. Rate : 071 BPM Atrial Rate : 071 BPM P-R Int : 152 ms QRS Dur : 108 ms QT Int : 374 ms P-R-T Axes : 018 -39 023 degrees QTc Int : 406 ms Normal sinus rhythm Left axis deviation Incomplete left bundle branch block Abnormal ECG Confirmed by GAURAV SAUCEDO, SELENA ([id number]), editor & co founder MARISA PINEDA ([id number]) on 05/29/2021 11:42:27 AM Referred By: DONOVAN Confirmed By:SELENA NOLASCO MD
--- NOTE | 2021-05-28 11:40 | RAD_ITS ---
STUDY: X-RAY CHEST REASON FOR EXAM: Male, 60 years old. Cough and back pain since Trevor. TECHNIQUE: Single AP portable view of the chest. COMPARISON: Comparison is made with prior study dated 05/15/2021. FINDINGS: EKG electrodes are seen. The lungs are clear and expanded. There is no demonstrated pleural abnormality. Sternal cerclage wires are present from a prior sternotomy. The patient is status post mitral valve replacement. Normal mediastinum and candy. Normal visualized pulmonary arteries. There is atherosclerotic tortuosity of the aortic arch and descending thoracic aorta. There are diffuse degenerative changes of the visualized thoracic spine. Normal visualized ribs, clavicles, and shoulders. There is no demonstrated abnormality of the visualized soft tissue structures of the upper abdomen. RAD/Chest 1 View (Portable) IMPRESSION: Status post mitral valve replacement. No acute abnormality is seen. Electronically Signed: Connor Haider MD at 12:25 EST ,
[2021-05-28 11:56] LABS: Bacteria 0 SEEN /hpf (None Seen); Mucous, Urine 0 SEEN /hpf (<or=2+); Red Blood Cells-Urine 0 SEEN /hpf (0-5); White Blood Cells 0 SEEN /hpf (0-5)
[2021-05-28 11:58] LABS: Color, Urine Yellow (Yellow); Glucose, Dipstick Normal (Normal); Ketone-Dipstick 50 mg/dl (Negative); Leukocyte Esterase-Dipstick Negative /ul (Negative); Nitrite-Dipstick Negative (Negative); Occult Blood-Urine Negative /ul (Negative); Protein-Dipstick Negative (Negative); Specific Gravity, Urine 1.015 (1.002-1.030); Urine Bilirubin Dipstick Negative (Negative); Urine Clarity Sl. Cloudy (Clear); Urine Urobilinogen Normal (Normal)
[2021-05-28 12:04] LABS: Squamous Epithelial Cells - UA 0-5 SEEN /hpf (0-5)
[2021-05-28 12:12] LABS: Absolute Lymphocyte Count 1.65 X10^3/uL (0.83-4.51); Basophil# 0.04 X10^3/uL; Basophil% 0.3 % (0-1); Eosinophil# 0.18 X10^3/uL; Eosinophils% 1.3 % (0-5); Hematocrit 45.1 % (40-54); Hemoglobin 15.4 g/dL (13.0-16.5); Lymphocyte # 1.65 X10^3/ul (0.83-4.51); Lymphocyte % 12.3 % (19-41); Mean Corp Hgb Conc 34.1 g/dL (32-36); Mean Corpuscular Hgb 30.6 pg (27.0-32.0); Mean Corpuscular Volume 89.7 fL (80-94); Mean Platelet Vol. 10.5 fl (6.2-12.0); Monocyte# 1.24 X10^3/uL; Monocyte% 9.3 % (0-10); NRBC Flagged by Analyzer 0 % (0-5); Neutrophil # 10.04 X10^3/uL (2.7-7.7); Neutrophil % 75.2 % (47-70); POSITIVE COUNT YES; Platelet Count 110 K/mm3 (150-450); RBC Distribution Width CV 13.2 % (11.6-14.6); RBC Distribution Width SD 42.9 fl (35.1-43.9); Red Blood Count 5.03 M/mm3 (4.6-6.2); White Blood Count 13.4 K/mm3 (4.4-11.0)
--- NOTE | 2021-05-28 12:18 | CT_ITS ---
STUDY: CT CHEST, ABDOMEN T PELVIS WITH CONTRAST REASON FOR EXAM: Male, 60 years old. Back pain with fever. History of prior abdominal aortic aneurysm repair and valve replacement. RADIATION DOSAGE (If Supplied By Facility): CTDIvol = ( 13.64 ) mGy, DLP = ( 1073.75 ) mGycm TECHNIQUE: Transaxial imaging was performed following intravenous administration of IV 100mL Isovue-300. Individualized dose optimization techniques were used for this CT. COMPARISON: No relevant priors. FINDINGS: CHEST There is a 7.8 mm hypodense nodule in the lower pole of the left lobe of the thyroid. The lungs are normal. There is no demonstrated pleural abnormality. Sternal cerclage wires are present from a prior sternotomy. The patient is status post aortic valve replacement. Normal mediastinum. Normal hilar regions. Normal unenhanced pulmonary arteries. Minimal thickening of the wall of the root of the ascending thoracic aorta most likely postoperative in nature. Normal osseous structures. There is no demonstrated abnormality of the visualized upper abdomen. ABDOMEN The visualized lung bases are unremarkable. The visualized portions of the heart are within normal limits. Normal liver. Normal gallbladder and extrahepatic biliary system. Normal spleen. Normal pancreas. There is a small, circumscribed, smooth, low attenuation left adrenal mass, consistent with an adrenal adenoma. This measures 1.1 cm. Normal right adrenal gland. There is a 1.2 cm cyst in the anterior lower pole of the right kidney. Normal left kidney. Normal visualized stomach. Normal small intestine. There are scattered colonic diverticula consistent with diverticulosis. The appendix is visualized and appears normal. There is scattered atherosclerotic calcification of the abdominal aorta, without a demonstrated aneurysm. Normal inferior vena cava. Normal retroperitoneum. There is a left-sided inguinal hernia containing adipose tissue. There are diffuse degenerative changes of the visualized lumbar spine. PELVIS Normal urinary bladder. Normal visualized small intestine. Normal visualized colon. There is no pelvic fluid. There is no pelvic lymphadenopathy or mass lesion. There is diffuse atherosclerotic calcification of the pelvic arteries. CT/CT Chest, Abd, Pel w/Contrast IMPRESSION: The patient is status post aortic valve replacement. There is evidence of a mild degree of mural thickening of the proximal portion of the descending thoracic aorta. Electronically Signed: Connor Haider MD at 13:35 EST ,
[2021-05-28 12:25] LABS: International Normalized Ratio 5.3
[2021-05-28 12:26] LABS: AST(SGOT) 30 U/L (15-37); Alanine Aminotransfer ALT/SGPT 40 U/L (16-61); Albumin, Serum 3.9 g/dL (3.2-5.0); Alkaline Phosphatase 74 U/L (45-117); Anion Gap 8 (5-15); BUN 18 mg/dL (7-18); BUN/Creat Ratio 14.3 RATIO (10-20); Calcium,Total 9.2 mg/dL (8.5-10.1); Chloride 103 mmol/L (98-107); Creatinine, Serum 1.26 mg/dL (0.70-1.30); EST Glomerular Filtration Rate 62 mL/min (>60); Est Glom Filt Rate - Afr Amer 75 mL/min (>60); Estimated Creatinine Clearance 59.56 ml/min; Globulin 3.8 g/dL (2.2-4.2); Glucose 95 mg/dL (74-106); Potassium 3.6 mmol/L (3.5-5.1); Protein, Total 7.7 g/dL (6.4-8.2); Sodium Level 139 mmol/L (136-145); Troponin-I HS 6 pg/mL (3.0-78.0)
[2021-05-28 12:29] LABS: BNP,B-Type NATRIURETIC PEPTIDE 26.6 pg/mL (0-100)
[2021-05-28] MEDS: Ondansetron 4 MG/2 ML Vial IV (12:32)
[2021-05-28] MEDS: 0.9% Normal Saline 1,000 ML 999 ML IV (12:32)
[2021-05-28] MEDS: Morphine 4 MG/ML Syringe IV (12:32)
[2021-05-28 12:34] LABS: Lactic Acid 1.2 mmol/L (0.4-1.9)
[2021-05-28 13:34] VITALS: BP 119/79; PULSE 96; RESP 16; O2SAT 97
[2021-05-28 13:49] LABS: CPK Total, Creatine Kinase 40 U/L (39-308)
--- NOTE | 2021-05-28 13:57 | EDS_ITS ---
HPI History of Present Illness Chief Complaint: Back Informant: patient Narrative Narrative: Patient is a 60-year-old male with history of mechanical aortic valve replacement, atrial fibrillation and hypertension on chronic Coumadin therapy presenting with low-grade temperatures. At the end of March patient was placed on prednisone course and Z-Braden, for malaise, cough and fever. He felt better for about a week but then he started have symptoms again. Was put on another course of prednisone and Augmentin but no improvement this time. Patient continue to have low-grade temperatures. His T-max was 101 without was not within the past week. Since Friday patient had worsening pain diffusely in his back. He states his whole back from his hips to his shoulder blades and wraps around to his abdomen. He denies any abdominal pain but notes that he has been having some bloating with eating. He states yesterday he tried eat a sandwich and then his stomach felt hard as a rock. Patient denies any injury or falls. He denies any urinary symptoms. Has had normal bowel movements. No nausea or vomiting. Patient is taking Tylenol which helps for 10 to 15 minutes and then his symptoms return. No other complaints at this time. [facility] Medical History (Updated 05/28/21 @ 15:[address] 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 Migraines Non-smoker Palpitations Paroxysmal atrial fibrillation Home Medications aspirin 81 mg PO DAILY@0800 06/10/13 [History Last Taken 05/27/21] hydrochlorothiazide 12.5 mg tablet 12.5 mg PO DAILY #90 tab 07/21/20 [Rx Last Taken 05/28/21] ramipril 10 mg capsule 10 mg PO BID #180 cap 07/21/20 [Rx Last Taken 05/28/21] metoprolol succinate 25 mg tablet,extended release 24 hr 25 mg PO BID #180 tab 05/23/21 [Rx Last Taken 05/28/21] rosuvastatin 5 mg PO MOWEFR 05/28/21 [History Last Taken 05/25/21] warfarin 5 mg PO MOWEFR 05/28/21 [History Last Taken 05/25/21] warfarin 6 mg PO SUTUTHSA 05/28/21 [History Last Taken 05/27/21] Allergy/AdvReac Type Severity Reaction Status Date / Time No Known Allergies Allergy Verified 05/28/21 11:23 Family History Father Hypertension Mother Afib Hypertension Sister Myocardial infarction, Onset Age: 40 Surgical History (Updated 05/28/21 @ 15:[address] Carmencita Porras, ) History of AAA (abdominal aortic aneurysm) repair History of aortic valve replacement (02/29/04) History of right and left heart catheterization (01/2004) Hx of CABG Social History (Updated 07/21/20 @ 14:[address] Rad Salamanca MD) Smoking Status: Never smoker alcohol intake: current alcohol intake frequency: a few times a month Alcohol type: wine substance use type: does not use caffeine: Yes Type: coffee Number of servings: 1 what type of physical activity do you participate in: none seatbelt use: always do you feel safe at home: Yes ROS ROS ED Constitutional Constitutional ED: Reports chills and fever(s) Eyes Eyes: Denies change in vision ENT ENT ED: Denies ear pain or rhinorrhea Cardiovascular Cardiovascular: Denies chest pain Respiratory/Chest Respiratory/Chest: Denies cough or dyspnea Gastrointestinal Gastrointestinal: Denies abdominal pain, constipation, diarrhea, nausea or vomiting Genitourinary Genitourinary ED: Denies dysuria or hematuria Musculoskeletal Musculoskeletal: Reports back pain; Denies arthralgias or myalgias Integumentary Denies rash Neurologic Neurologic: Denies headache(s), paresthesias or weakness Psychiatric Psychiatric: Denies depression EXAM Physical Exam Const Vital Signs: 05/28/21 11:23 05/28/21 13:34 Temperature 97.3 F L Temperature Source Temporal Pulse Rate 78 96 Respiratory Rate 16 16 Blood Pressure 135/77 H 119/79 Blood Pressure Mean 96 92 Pulse Ox 100 97 Oxygen Delivery Method Room Air Room Air Positive well nourished and well developed General Appearance ED: well developed HEENT Reports moist mucous membranes Negative for tenderness Eyes PERRL and EOMs intact bilaterally Neck no lymphadenopathy and supple General: Negative for tenderness Chest Wall inspection of chest normal and palpation of chest normal Resp normal respiratory effort and clear to auscultation bilaterally Effort and Inspection: Negative for pain with movement Cardio regular rate, regular rhythm and no murmurs Heart Sounds: murmur systolic GI normal to inspection, nondistended, normoactive bowel sounds and non-tender Palpation: soft Back/Spine no CVA tenderness Back/Spine Narrative: Patient does not have any reproducible thoracic or lumbar tenderness but states his entire back hurts Extremity normal to inspection Extremity Narrative: 2+ bilateral DP pulses, 2+ bilateral radial pulses General Extremety ED: Negative for edema or tenderness General Extremity: Negative for edema Neuro oriented x3 and CN's II-XII intact bilaterally Sensorium / Orientation: alert Psych mental status grossly normal Skin no rashes or lesions noted and no wounds MDM MDM MDM Narrative Medical decision making narrative: Patient evaluated for about 6 weeks of low- grade fevers and now worsening back pain. The pain is been present for about 3 to 4 days. It is not reproducible on exam. Patient does seem uncomfortable but I cannot localize his pain. Vital signs are unremarkable in the ER. Patient is given morphine for pain control which she states was not that helpful. He is then given a dose of Dilaudid. He is found to have a leukocytosis of 13.4 and a supratherapeutic INR 5.3. He has 50 ketones in his urine is given IV fluids for likely component of dehydration. His lactate is normal. No other significant laboratory abnormalities. CT with IV contrast of the chest abdomen pelvis does not show any acute process to explain his presentation. Differential includes a vegetative lesion of his mechanical valve, discitis or more indolent infection. Blood cultures are pending. Patient will be admitted for further evaluation of these fevers as well as his back pain. He does not have any signs of active bleeding with a normal hemoglobin so do not he requires emergent reversal of his INR. Lab Data Attestation: I reviewed the patient's lab results. Labs: Laboratory Results - last 24 hr 05/28/21 05/28/21 05/28/21 11:25 11:56 11:56 WBC 13.4 H RBC 5.03 Hgb 15.4 Hct 45.1 MCV 89.7 MCH 30.6 MCHC 34.1 RDW Std Deviation 42.9 RDW Coeff of Terrance 13.2 Plt Count 110 L MPV 10.5 Immature Gran % (Auto) 1.600 H Neut % (Auto) 75.2 H Lymph % (Auto) 12.3 L [place] % (Auto) 9.3 Eos % (Auto) 1.3 Baso % (Auto) 0.3 Absolute Neuts (auto) 10.0 H Absolute Lymphs (auto) 1.65 Nucleated RBC % 0 PT 48.0 H INR 5.3 H* Sodium Potassium Chloride Carbon Dioxide Anion Gap BUN Creatinine Estim Creat Clear Calc Est GFR (MDRD) Af Amer Est GFR (MDRD) Non-Af BUN/Creatinine Ratio Glucose Lactic Acid Calcium Total Bilirubin AST ALT Alkaline Phosphatase Total Creatine Kinase Troponin I High Sens B-Natriuretic Peptide Total Protein Albumin Globulin Albumin/Globulin Ratio Urine Color Yellow Urine Clarity Sl. Cloudy Urine pH 6.0 Ur Specific [place] 1.015 Urine Protein Negative Urine Glucose (UA) Normal Urine Ketones 50 H Urine Occult Blood Negative Urine Nitrite Negative Urine Bilirubin Negative Urine Urobilinogen Normal Ur Leukocyte Esterase Negative Urine RBC 0 SEEN Urine WBC 0 SEEN Ur Squamous Epith Cells 0-5 SEEN Urine Bacteria 0 SEEN Urine Mucus 0 SEEN 05/28/21 05/28/21 05/28/21 11:56 11:56 11:56 WBC RBC Hgb Hct MCV MCH MCHC RDW Std Deviation RDW Coeff of Terrance Plt Count MPV Immature Gran % (Auto) Neut % (Auto) Lymph % (Auto) [place] % (Auto) Eos % (Auto) Baso % (Auto) Absolute Neuts (auto) Absolute Lymphs (auto) Nucleated RBC % PT INR Sodium 139 Potassium 3.6 Chloride 103 Carbon Dioxide 28.0 Anion Gap 8 BUN 18 Creatinine 1.26 Estim Creat Clear Calc 59.56 Est GFR (MDRD) Af Amer 75 Est GFR (MDRD) Non-Af 62 BUN/Creatinine Ratio 14.3 Glucose 95 Lactic Acid 1.2 Calcium 9.2 Total Bilirubin 0.70 AST 30 ALT 40 Alkaline Phosphatase 74 Total Creatine Kinase Troponin I High Sens 6 B-Natriuretic Peptide 26.6 Total Protein 7.7 Albumin 3.9 Globulin 3.8 Albumin/Globulin Ratio 1.0 Urine Color Urine Clarity Urine pH Ur Specific [place] Urine Protein Urine Glucose (UA) Urine Ketones Urine Occult Blood Urine Nitrite Urine Bilirubin Urine Urobilinogen Ur Leukocyte Esterase Urine RBC Urine WBC Ur Squamous Epith Cells Urine Bacteria Urine Mucus 05/28/21 11:56 WBC RBC Hgb Hct MCV MCH MCHC RDW Std Deviation RDW Coeff of Terrance Plt Count MPV Immature Gran % (Auto) Neut % (Auto) Lymph % (Auto) [place] % (Auto) Eos % (Auto) Baso % (Auto) Absolute Neuts (auto) Absolute Lymphs (auto) Nucleated RBC % PT INR Sodium Potassium Chloride Carbon Dioxide Anion Gap BUN Creatinine Estim Creat Clear Calc Est GFR (MDRD) Af Amer Est GFR (MDRD) Non-Af BUN/Creatinine Ratio Glucose Lactic Acid Calcium Total Bilirubin AST ALT Alkaline Phosphatase Total Creatine Kinase 40 Troponin I High Sens B-Natriuretic Peptide Total Protein Albumin Globulin Albumin/Globulin Ratio Urine Color Urine Clarity Urine pH Ur Specific [place] Urine Protein Urine Glucose (UA) Urine Ketones Urine Occult Blood Urine Nitrite Urine Bilirubin Urine Urobilinogen Ur Leukocyte Esterase Urine RBC Urine WBC Ur Squamous Epith Cells Urine Bacteria Urine Mucus Radiography Diagnostic Testing: Clinical Impression(s) from Imaging Studies Chest X-Ray 05/28/21 11:40 IMPRESSION: Status post mitral valve replacement. No acute abnormality is seen. Electronically Signed: Connor Haider MD at 12:25 EST , Chest/Abdomen/Pelvis CT 05/28/21 12:18 IMPRESSION: The patient is status post aortic valve replacement. There is evidence of a mild degree of mural thickening of the proximal portion of the descending thoracic aorta. Electronically Signed: Connor Haider MD at 13:35 EST , Rhythm Strip Rhythm Strip: Sinus Rhythm Rate: 71 Ectopy: None EKG Initial EKG: Attestation: I personally reviewed and interpreted this EKG as follows: Interpretation: Sinus Rhythm Comments: Normal sinus rhythm at a rate of 71 Left axis deviation Incomplete left bundle branch block Normal QTC Discharge Plan Dx/Rx/DC Orders Clinical Impression: Fever of unknown origin, History of aortic valve replacement, Leukocytosis, Intractable back pain, Supratherapeutic INR Disposition Disposition: Acute Care Hospital [facility] Discharge Date/Time: 05/28/21 15:14
[2021-05-28] MEDS: HYDROmorphone 1 MG/ML Syringe 0.5 MG IV (14:47)
[2021-05-28 14:49] VITALS: BP 134/84; PULSE 103; RESP 15; TEMP 36.6; O2SAT 98
[2021-05-28 15:30] VITALS: BMI 28.5
[2021-05-28 15:36] VITALS: BP 136/90; PULSE 98; RESP 16; TEMP 36.9; O2SAT 96
--- NOTE | 2021-05-28 16:03 | HP.PCM.HOS_ITS ---
HPI - General General Date of Admission: 05/28/21 Date of Service: 05/28/21 HPI Narrative RUT RILEY, is a 60 M who presents to the emergency room at [facility] at the direction of his PCP, he has had fevers over the last 2 months, he does complain presently of thoracic and lumbar back pain which is quite severe. Patient denies any injury. Patient had been placed on 2 rounds of antibiotics-1 in March 2021, and 1 in April 2020 due to complaints of intermittent fevers, feeling unwell, and having a cough with chest congestion. The last time patient was on a course of antibiotics, he was also given a short course of prednisone. Patient was sent in today for evaluation because the patient's PCP worried that the patient might have endocarditis. Patient is vaccinated for COVID-19. Patient states that his temperature at home has been 101 degrees at times, he states in April 2021 he felt better after he finished his antibiotic course, but now he feels unwell again. Work-up in the emergency room included a CBC which showed a slightly elevated white blood cell count at 13.4, platelet count was slightly low at 110,000, patient's INR was elevated at 5.3, chemistry profile was unremarkable, beta natruretic peptide was normal, troponin was normal, and the urinalysis was unremarkable except for some ketones in the urine. Patient underwent a chest x- ray which did not show any acute cardiopulmonary process, there was noted to be mechanical heart valve present, patient has CT of the chest abdomen and pelvis which showed a mild degree of mural thickening in the proximal portion of of the descending thoracic aorta, an aortic valve replacement was noted to be present. Patient's COVID-19 antigen test was negative. Patient will be placed in observation status on [facility], blood cultures were obtained in the emergency room, patient will undergo a MONET tomorrow, I will not start the patient on any antibiotics at this point, I have ordered an MRI of his thoracic and lumbar spine. Patient will be seen in consultation by infectious diseases. [facility] Medical History (Updated 05/28/21 @ 15:[address] 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 Migraines Non-smoker Palpitations Paroxysmal atrial fibrillation Home Medications aspirin 81 mg PO DAILY@0800 06/10/13 [History Last Taken 05/27/21] hydrochlorothiazide 12.5 mg tablet 12.5 mg PO DAILY #90 tab 07/21/20 [Rx Last Taken 05/28/21] ramipril 10 mg capsule 10 mg PO BID #180 cap 07/21/20 [Rx Last Taken 05/28/21] metoprolol succinate 25 mg tablet,extended release 24 hr 25 mg PO BID #180 tab 05/23/21 [Rx Last Taken 05/28/21] rosuvastatin 5 mg PO MOWEFR 05/28/21 [History Last Taken 05/25/21] warfarin 5 mg PO MOWEFR 05/28/21 [History Last Taken 05/25/21] warfarin 6 mg PO SUTUTHSA 05/28/21 [History Last Taken 05/27/21] Allergy/AdvReac Type Severity Reaction Status Date / Time No Known Allergies Allergy Verified 05/28/21 11:23 Family History Father Hypertension Mother Afib Hypertension Sister Myocardial infarction, Onset Age: 40 Surgical History (Updated 05/28/21 @ 15:[address] Carmencita Porras DO) History of AAA (abdominal aortic aneurysm) repair History of aortic valve replacement (02/29/04) History of right and left heart catheterization (01/2004) Hx of CABG Social History (Updated 07/21/20 @ 14:[address] Rad Salamanca MD) Smoking Status: Never smoker alcohol intake: current alcohol intake frequency: a few times a month Alcohol type: wine substance use type: does not use caffeine: Yes Type: coffee Number of servings: 1 what type of physical activity do you participate in: none seatbelt use: always do you feel safe at home: Yes ROS Constitutional Constitutional: Reports chills, fever(s) and malaise; Denies anorexia, change in weight, night sweats or weakness Eyes Eyes: Denies blurry vision, change in eye color, change in vision, discharge from eye(s) or eye pain Cardiovascular Cardiovascular: Denies chest pain, claudication, dyspnea on exertion, edema, lightheadedness, orthopnea or palpitations Respiratory/Chest Respiratory/Chest: Denies cough, dyspnea, excessive phlegm production, hemop tysis, productive cough, shortness of breath at rest or shortness of breath with exertion Gastrointestinal Gastrointestinal: Denies abdominal pain, constipation, diarrhea, hematemesis, hematochezia, melena, nausea or vomiting Genitourinary Genitourinary: Denies dysuria, hematuria, urinary frequency, urinary hesitancy, urinary incontinence or urinary urgency Musculoskeletal Musculoskeletal: Reports back pain; Denies joint pain, joint stiffness, joint swelling, myalgias or neck pain Neurologic Neurologic: Denies abnormal gait, abnormal speech, confusion, disequilibrium, dizziness, focal weakness, headache(s), loss of vision, numbness, other visual disturbances, paresthesias, syncope or tingling Psychiatric Psychiatric: Denies anxiety, cognitive impairment, depression, irritability, mood swings or suicidal ideation Endocrine Endocrinology: Denies change in body appearance, cold intolerance, excessive sweating, heat intolerance, polydipsia or polyuria Hematologic/Lymphatic Hematologic/Lymphatic: Denies none, anemia, easy bleeding, easy bruising or lymphadenopathy Allergic/Immunologic Allergic/Immunologic: Denies rhinitis, urticaria, eczemia or asthma Vital Signs Vital Signs Vital Signs: 05/28/21 11:23 05/28/21 13:34 05/28/21 14:49 Temperature 97.3 F L 97.8 F Temperature Source Temporal Temporal Pulse Rate 78 96 103 H Respiratory Rate 16 16 15 Blood Pressure 135/77 H 119/79 134/84 H Blood Pressure Mean 96 92 100 Blood Pressure Source Blood Pressure Position Blood Pressure Location Pulse Ox 100 97 98 Oxygen Delivery Method Room Air Room Air Room Air 05/28/21 15:36 Temperature 98.4 F Temperature Source Oral Pulse Rate 98 Respiratory Rate 16 Blood Pressure 136/90 H Blood Pressure Mean 105 Blood Pressure Source Monitor Blood Pressure Position Sitting Blood Pressure Location Right Arm Pulse Ox 96 Oxygen Delivery Method Room Air Weight Weight: 85.139 kg Body Mass Index (BMI) 28.5 Physical Exam Const alert, oriented x3 and no apparent distress General Appearance: cooperative, well kempt and well developed Orientation / Consciousness: awake, oriented to person, oriented to place and oriented to time HEENT normocephalic, head/scalp atraumatic, hearing grossly normal bilaterally and moist oral mucous membranes Eyes PERRL, EOMs intact bilaterally and conjunctivae normal Neck nuchal rigidity, supple, no JVD, thyroid normal and no carotid bruits General: trachea midline Resp normal respiratory effort, no retractions, no use of accessory muscles and clear to auscultation bilaterally Auscultation: Negative for rales, rhonchi or wheezes Cardio S1 normal heart sound, S2 normal heart sound, no murmurs, no rub and no gallops Cardio Narrative: Heart rate and rhythm is irregular, there is mechanical click noted over the precordium on auscultation GI normal to inspection, nondistended, normoactive bowel sounds, soft to palpation, non-tender and non-distended Extremity normal to inspection and no clubbing, cyanosis or edema Skin no rashes or lesions noted, no wounds and skin turgor normal General Skin Exam: no breakdown Neuro oriented x3, CN's II-XII intact bilaterally, no focal motor deficits and no sensory deficits noted Sensorium / Orientation: awake and alert Speech: speech normal Psych affect normal Results Lab / Micro Data Result Diagrams: 05/28/21 11:56 05/28/21 11:56 Labs: Laboratory Results - last 24 hr 05/28/21 11:25: Urine Color Yellow, Urine Clarity Sl. Cloudy, Urine pH 6.0, Ur Specific [place] 1.015, Urine Protein Negative, Urine Glucose (UA) Normal, Urine Ketones 50 H, Urine Occult Blood Negative, Urine Nitrite Negative, Urine Bilirubin Negative, Urine Urobilinogen Normal, Ur Leukocyte Esterase Negative, Urine RBC 0 SEEN, Urine WBC 0 SEEN, Ur Squamous Epith Cells 0-5 SEEN, Urine Bacteria 0 SEEN, Urine Mucus 0 SEEN 05/28/21 11:56: WBC 13.4 H, RBC 5.03, Hgb 15.4, Hct 45.1, MCV 89.7, MCH 30.6, MCHC 34.1, RDW Std Deviation 42.9, RDW Coeff of Terrance 13.2, Plt Count 110 L, MPV 10.5, Immature Gran % (Auto) 1.600 H, Neut % (Auto) 75.2 H, Lymph % (Auto) 12.3 L, [place] % (Auto) 9.3, Eos % (Auto) 1.3, Baso % (Auto) 0.3, Absolute Neuts (auto) 10.0 H, Absolute Lymphs (auto) 1.65, Nucleated RBC % 0 05/28/21 11:56: PT 48.0 H, INR 5.3 H* 05/28/21 11:56: Sodium 139, Potassium 3.6, Chloride 103, Carbon Dioxide 28.0, Anion Gap 8, BUN 18, Creatinine 1.26, Estim Creat Clear Calc 59.56, Est GFR (MDRD) Af Amer 75, Est GFR (MDRD) Non-Af 62, BUN/Creatinine Ratio 14.3, Glucose 95, Calcium 9.2, Total Bilirubin 0.70, AST 30, ALT 40, Alkaline Phosphatase 74, Troponin I High Sens 6, Total Protein 7.7, Albumin 3.9, Globulin 3.8, Albumin/Globulin Ratio 1.0 05/28/21 11:56: Lactic Acid 1.2 05/28/21 11:56: B-Natriuretic Peptide 26.6 05/28/21 11:56: Total Creatine Kinase 40 Micro: Microbiology 05/28/21 11:55 Nasal Secretion SARS-CoV-2 Antigen (Rapid) - Final Rhythm Strip Rhythm Strip: Sinus Rhythm Rate: 71 Ectopy: None Radiology Impression Chest X-Ray 05/28/21 11:40 IMPRESSION: Status post mitral valve replacement. No acute abnormality is seen. Electronically Signed: Connor Haider MD at 12:25 EST , Chest/Abdomen/Pelvis CT 05/28/21 12:18 IMPRESSION: The patient is status post aortic valve replacement. There is evidence of a mild degree of mural thickening of the proximal portion of the descending thoracic aorta. Electronically Signed: Connor Haider MD at 13:35 EST , Assessment & Plan Assessment/Plan (1) Fever of unknown origin: PLAN: 1. Thoracic and lumbar back pain-etiology unclear at this point, patient will be placed in observation status on [facility], he will undergo an MRI of his thoracic and lumbar spine, he will be given narcotics for pain #2 intermittent fevers over the last 2 months-etiology unclear, patient will undergo work-up for endocarditis including a MONET, blood cultures were obtained in the emergency room, I will not place the patient on antibiotics at this time, he will be seen by infectious diseases. #3 paroxysmal atrial fibrillation-at the time of my examination, patient is in atrial fibrillation, however, his EKG in the emergency room showed a normal sinus rhythm. Patient is on Coumadin chronically-his INR was highly elevated today, I have elected to stop his Coumadin for now, repeat INR is will be obtained, he will need to resume his Coumadin due to his mechanical valve when his INR is in the therapeutic range. #4 chronic Coumadin usage due to mechanical heart valve-INR will need to be monitored, when his INR is in the therapeutic range, his Coumadin can be restarted. #5 essential hypertension-patient will remain on his home medications #6 hyperlipidemia-patient will remain on his present medication #7 valvular heart disease-patient has a mechanical aortic valve, I checked with MRI and they stated that the patient would be able to undergo an MRI, patient also stated that he was told he could undergo an MRI in the past. Charges/Coding Visit Charges OBSV E&M: 29779 Initial observation care L3
--- NOTE | 2021-05-28 16:51 | MRI_ITS ---
STUDY: MRI THORACIC SPINE WITHOUT CONTRAST REASON FOR EXAM: Male, 60 years old. thoracic back pain TECHNIQUE: Standardized fat and water weighted pulse sequences were obtained in the sagittal and axial planes. COMPARISON: None. FINDINGS: Normal kyphosis of the thoracic spine. There is no substantial scoliosis. No acute fracture or other significant bony pathology. Mild multilevel disc space narrowing. There is desiccation of the disc at T12-L1 with minor bulging of the disc with no spinal stenosis.. There is desiccation of the disc at T9-T10 with small right paracentral disc protrusion but no significant spinal stenosis There is also desiccation of the discs at T6-7, T7-8 and T8-9 without disc protrusion or spinal stenosis Normal visualized thoracic cord. Normal conus medullaris that terminates at T12-L1 The soft tissue structures are unremarkable. MRI/Spine Thoracic (Routine) IMPRESSION: No acute fracture or other significant bony pathology Degenerative changes and multilevel disc degeneration. Small right paracentral disc protrusion at T9-T10 without spinal stenosis or cord compression Electronically Signed: Kash Herbert MD at 20:14 EST ,
--- NOTE | 2021-05-28 16:53 | ECHOTEE_ITS ---
Reason For Study: Fevers, AVR, R/O Endocarditis Medication MONET probe 6VT-D (SN [id number]) passed without difficulty. No complications were noted. Cetacaine Topical [place] given X3 orally. Versed 2 mg given slow IVP. Fentanyl 50 mcg given slow IVP. Performed a rapid injection of agitated mix of 9 cc saline and 1cc air to assess for atrial septal defect. Left Ventricle Normal LV size. Left ventricular systolic function is normal. The estimated ejection fraction is 55 %. No regional wall motion abnormalities noted. Right Ventricle Normal RV size. Normal systolic function. The right ventricular wall motion is normal. Atria Normal atrial septum. Bubble contrast study negative for right to left interatrial shunt. Normal left atrium. Normal right atrium. Mitral Valve Normal mitral valve. Tricuspid Valve Normal tricuspid valve. Aortic Valve Trivial aortic valve insufficiency. Bileaflet mechanical aortic valve. Pulmonic Valve Normal pulmonic valve. Vessels Normal aortic root. The pulmonary artery is normal size. Pericardium No pericardial effusion. ECHO/Echo Transesophageal (MONET) Interpretation Summary Normal LV size. Left ventricular systolic function is normal. The estimated ejection fraction is 55 %. Bubble contrast study negative for right to left interatrial shunt. Bileaflet mechanical aortic valve. No vegetations seen Ordering Physician: Kumar Cox Referring Physician: Lisa Mcconnell Performed By: Itzel White RDCS
[2021-05-28] MEDS: HYDROmorphone 1 MG/ML Syringe IV (17:14)
[2021-05-28] MEDS: 0.9% Saline Lock 10 ML Syringe IV (17:14)
[2021-05-28] MEDS: Acetaminophen 325 MG Tablet 650 MG PO (17:14)
--- NOTE | 2021-05-28 18:42 | MRI_ITS ---
STUDY: MR Spine Lumbar W/O Contrast 05/28/2021 7:45 PM REASON FOR EXAM: Male, 60 years old. Back pain lumbar pain TECHNIQUE: MR Spine Lumbar W/O Contrast Standardized fat and water weighted pulse sequences were obtained. COMPARISON: None FINDINGS: T12-L1: Loss of intervertebral disc height. There is endplate spondylosis of the vertebral body. Normal central canal and intervertebral neuroforamina. There is bilateral facet arthropathy. Normal lumbar lordosis. There is no substantial scoliosis. Normal conus medullaris that terminates at the L1. L1-2: Loss of intervertebral disc height. There is endplate spondylosis of the vertebral body. Normal central canal and intervertebral neuroforamina. There is bilateral facet arthropathy. Posterior disc bulge. L2-3: Loss of intervertebral disc height. There is endplate spondylosis of the vertebral body. Normal central canal and intervertebral neuroforamina. There is bilateral facet arthropathy. Right paracentral disc herniation. Ligamental flavum thickening. No spinal stenosis. L3-4: Loss of intervertebral disc height. There is endplate spondylosis of the vertebral body. Normal central canal and intervertebral neuroforamina. There is bilateral facet arthropathy. L4-5: Loss of intervertebral disc height. There is endplate spondylosis of the vertebral body. There is bilateral facet arthropathy. Bilateral neural foraminal stenosis. Compression of exiting nerve roots. Disc herniation. No spinal stenosis. Discogenic endplate changes. Vacuum disc phenomenon. There is bilateral ligamentum flavum thickening. L5-S1: Loss of intervertebral disc height. There is endplate spondylosis of the vertebral body. There is bilateral facet arthropathy. Bilateral neural foraminal stenosis. Compression of exiting nerve roots. Disc herniation. No spinal stenosis. Discogenic endplate changes. Vacuum disc phenomenon. Normal visualized sacral ala. Normal visualized paraspinous soft tissue structures. MRI/Spine Lumbar (Routine) IMPRESSION: Multilevel degenerative changes, as described above. L2-3: Right paracentral disc herniation. No spinal stenosis. L4-5: Disc herniation. No spinal stenosis. L5-S1: Disc herniation. No spinal stenosis. Discogenic endplate changes. Vacuum disc phenomenon. Electronically Signed: Roel Lima MD at 19:49 EST ,
[2021-05-28 20:10] VITALS: BP 134/72; PULSE 77; RESP 16; TEMP 36.5; O2SAT 95
[2021-05-28 21:33] VITALS: BP 134/72; PULSE 77
[2021-05-28] MEDS: Zolpidem Tartrate 5 MG Tablet PO (21:33)
[2021-05-28] MEDS: Metoprolol(XL)Succ 25 MG Tablet PO (21:33)
[2021-05-28] MEDS: Ramipril 10 MG Capsule PO (21:33)
[2021-05-28] MEDS: Atorvastatin Calcium 10 MG Tablet PO (21:33)
[2021-05-29] VITALS (15 sets, daily range): BP systolic 91–139; BP diastolic 55–72; PULSE 48–72; RESP 12–18; TEMP 36.5–37.1; O2SAT 94–98
[2021-05-29] MEDS: HYDROmorphone 1 MG/ML Syringe IV (04:11)
[2021-05-29] MEDS: 0.9% Saline Lock 10 ML Syringe IV (04:11)
[2021-05-29 05:00] LABS: Absolute Lymphocyte Count 1.37 X10^3/uL (0.83-4.51); Absolute Neutrophil Count 6.8 X10^3/uL (2.0-7.7); Basophil# 0.03 X10^3/uL; Basophil% 0.3 % (0-1); Eosinophil# 0.25 X10^3/uL; Eosinophils% 2.6 % (0-5); Hematocrit 40.8 % (40-54); Hemoglobin 13.1 g/dL (13.0-16.5); Lymphocyte # 1.37 X10^3/ul (0.83-4.51); Lymphocyte % 14.3 % (19-41); Mean Corp Hgb Conc 32.1 g/dL (32-36); Mean Corpuscular Hgb 29.6 pg (27.0-32.0); Mean Corpuscular Volume 92.1 fL (80-94); Monocyte# 1.04 X10^3/uL; Monocyte% 10.8 % (0-10); NRBC Flagged by Analyzer 0 % (0-5); Neutrophil # 6.79 X10^3/uL (2.7-7.7); Neutrophil % 70.6 % (47-70); Platelet Count 210 K/mm3 (150-450); RBC Distribution Width CV 13.3 % (11.6-14.6); RBC Distribution Width SD 44.9 fl (35.1-43.9); Red Blood Count 4.43 M/mm3 (4.6-6.2); White Blood Count 9.6 K/mm3 (4.4-11.0)
[2021-05-29 05:07] LABS: International Normalized Ratio 5.4; Prothrombin Time (Protime)PT. 48.6 SECONDS (11.7-14.9)
[2021-05-29 05:23] LABS: Anion Gap 5 (5-15); BUN 18 mg/dL (7-18); BUN/Creat Ratio 17.1 RATIO (10-20); Calcium,Total 8.5 mg/dL (8.5-10.1); Chloride 105 mmol/L (98-107); Creatinine, Serum 1.05 mg/dL (0.70-1.30); EST Glomerular Filtration Rate 76 mL/min (>60); Est Glom Filt Rate - Afr Amer 92 mL/min (>60); Estimated Creatinine Clearance 71.48 ml/min; Glucose 90 mg/dL (74-106); Sodium Level 138 mmol/L (136-145)
--- NOTE | 2021-05-29 09:02 | NURSING ---
pt off floor at 8:30 for MONET
[2021-05-29] MEDS: hydroCHLOROthiazide 6.25mg TAB 12.5 MG PO (09:46)
[2021-05-29] MEDS: Ramipril 10 MG Capsule PO ×2 (09:46→21:04)
[2021-05-29] MEDS: Aspirin 81 MG TAB.CHEW PO (09:46)
[2021-05-29] MEDS: Metoprolol(XL)Succ 25 MG Tablet PO ×2 (09:47→21:03)
--- NOTE | 2021-05-29 10:18 | PCM.CONS.GEN ---
Assessment & Plan Assessment/Plan (1) Intractable back pain: PLAN: Sounds like covid end of March and now acute onset of unrelated back pain. Bcx neg so far. MRI of spine relatively normal, MONET reportedly normal. Low suspicion for infection at this time. Monitoring off of abx. Recommend covid booster. Will follow, thank you, d/w Dr. Cox yesterday (2) History of aortic valve replacement: HPI Consult Data Date of Consult: 05/29/21 HPI Narrative HPI Narrative: RUT RILEY, [facility] 60 [facility], presented with new bilat upper and lower back pain since 05/25, severe, constant, radiating anteriorally from his flank. Does not go down legs, no weakness. No inciting event. Had suspected covid at end of March. All coworkers were (+), he tested neg x4 but did have fever, chills, cough, congestion, sore throat, fatigue, aches. No change in taste and smell. Vaccinated x2, due for booster. For past week or so, URI sx have resolved. Came to ED, admitted, bcx done, MRIs done, MONET done this Am. Not started on abx here. Did get course of azithro and augmentin during March and early April without any improvement. Back pain much better this AM. Full ROS performed and neg except as noted above. [facility] Medical History Aortic insufficiency due to bicuspid aortic valve Atrial fibrillation Bradycardia Coronary artery disease Essential (primary) hypertension High cholesterol History of echocardiogram HLD (hyperlipidemia) Hypertension Hyperthyroidism Irregular heart beat Kidney stones [facility] (current) use of anticoagulants Migraines Non-smoker Palpitations Paroxysmal atrial fibrillation Home Medications aspirin 81 mg PO DAILY@0800 06/10/13 [History Last Taken 05/27/21] hydrochlorothiazide 12.5 mg tablet 12.5 mg PO DAILY #90 tab 07/21/20 [Rx Last Taken 05/28/21] ramipril 10 mg capsule 10 mg PO BID #180 cap 07/21/20 [Rx Last Taken 05/28/21] metoprolol succinate 25 mg tablet,extended release 24 hr 25 mg PO BID #180 tab 05/23/21 [Rx Last Taken 05/28/21] rosuvastatin 5 mg PO MOWEFR 05/28/21 [History Last Taken 05/25/21] warfarin 5 mg PO MOWEFR 05/28/21 [History Last Taken 05/25/21] warfarin 6 mg PO SUTUTHSA 05/28/21 [History Last Taken 05/27/21] Allergy/AdvReac Type Severity Reaction Status Date / Time No Known Allergies Allergy Verified 05/28/21 11:23 Family History Father Hypertension Mother Afib Hypertension Sister Myocardial infarction, Onset Age: 40 Surgical History (Updated 05/28/21 @ 15:[address] Carmencita Porras DO) History of AAA (abdominal aortic aneurysm) repair History of aortic valve replacement (02/29/04) History of right and left heart catheterization (01/2004) Hx of CABG Social History (Updated 07/21/20 @ 14:[address] Rad Salamanca MD) Smoking Status: Never smoker alcohol intake: current alcohol intake frequency: a few times a month Alcohol type: wine substance use type: does not use caffeine: Yes Type: coffee Number of servings: 1 what type of physical activity do you participate in: none seatbelt use: always do you feel safe at home: Yes Physical Exam Const alert, oriented x3 and no apparent distress General Appearance: cooperative Exam Limitations: no limitations HEENT normocephalic and head/scalp atraumatic Eyes PERRL and EOMs intact bilaterally Neck supple and No nodes Resp normal air movement and clear to auscultation bilaterally Cardio regular rate and regular rhythm Heart Sounds: click GI soft to palpation, non-tender and non-distended Extremity no clubbing, cyanosis or edema Extremity Narrative: No spine tenderness Skin no rashes or lesions noted Neuro CN's II-XII intact bilaterally Lab / Micro Data Result Diagrams: 05/29/21 04:33 05/29/21 04:33 Labs: Laboratory Results - last 24 hr 05/28/21 11:25: Urine Color Yellow, Urine Clarity Sl. Cloudy, Urine pH 6.0, Ur Specific [place] 1.015, Urine Protein Negative, Urine Glucose (UA) Normal, Urine Ketones 50 H, Urine Occult Blood Negative, Urine Nitrite Negative, Urine Bilirubin Negative, Urine Urobilinogen Normal, Ur Leukocyte Esterase Negative, Urine RBC 0 SEEN, Urine WBC 0 SEEN, Ur Squamous Epith Cells 0-5 SEEN, Urine Bacteria 0 SEEN, Urine Mucus 0 SEEN 05/28/21 11:56: WBC 13.4 H, RBC 5.03, Hgb 15.4, Hct 45.1, MCV 89.7, MCH 30.6, MCHC 34.1, RDW Std Deviation 42.9, RDW Coeff of Terr[place] 13.2, Plt Count 110 L, MPV 10.5, Immature Gran % (Auto) 1.600 H, Neut % (Auto) 75.2 H, Lymph % (Auto) 12.3 L, [place] % (Auto) 9.3, Eos % (Auto) 1.3, Baso % (Auto) 0.3, Absolute Neuts (auto) 10.0 H, Absolute Lymphs (auto) 1.65, Nucleated RBC % 0 05/28/21 11:56: PT 48.0 H, INR 5.3 H* 05/28/21 11:56: Sodium 139, Potassium 3.6, Chloride 103, Carbon Dioxide 28.0, Anion Gap 8, BUN 18, Creatinine 1.26, Estim Creat Clear Calc 59.56, Est GFR (MDRD) Af Amer 75, Est GFR (MDRD) Non-Af 62, BUN/Creatinine Ratio 14.3, Glucose 95, Calcium 9.2, Total Bilirubin 0.70, AST 30, ALT 40, Alkaline Phosphatase 74, Troponin I High Sens 6, Total Protein 7.7, Albumin 3.9, Globulin 3.8, Albumin/Globulin Ratio 1.0 05/28/21 11:56: Lactic Acid 1.2 05/28/21 11:56: B-Natriuretic Peptide 26.6 05/28/21 11:56: Total Creatine Kinase 40 05/29/21 04:33: WBC 9.6, RBC 4.43 L, Hgb 13.1, Hct 40.8, MCV 92.1, MCH 29.6, MCHC 32.1 D, RDW Std Deviation 44.9 H, RDW Coeff of [place] 13.3, Plt Count 210, MPV 10.0, Immature Gran % (Auto) 1.400 H, Neut % (Auto) 70.6 H, Lymph % (Auto) 14.3 L, [place] % (Auto) 10.8 H, Eos % (Auto) 2.6, Baso % (Auto) 0.3, Absolute Neuts (auto) 6.8, Absolute Lymphs (auto) 1.37, Nucleated RBC % 0 05/29/21 04:33: PT 48.6 H, INR 5.4 H* 05/29/21 04:33: Sodium 138, Potassium 4.0, Chloride 105, Carbon Dioxide 28.0, Anion Gap 5, BUN 18, Creatinine 1.05, Estim Creat Clear Calc 71.48, Est GFR (MDRD) Af Amer 92, Est GFR (MDRD) Non-Af 76, BUN/Creatinine Ratio 17.1, Glucose 90, Calcium 8.5 05/29/21 06:46: Blood Type A NEGATIVE, Antibody Screen NEGATIVE Micro: Microbiology 05/28/21 11:55 Nasal Secretion SARS-CoV-2 Antigen (Rapid) - Final Rhythm Strip Rhythm Strip: Sinus Rhythm Rate: 71 Ectopy: None Radiology Impression Chest X-Ray 05/28/21 11:40 IMPRESSION: Status post mitral valve replacement. No acute abnormality is seen. Electronically Signed: Connor Haider MD at 12:25 EST , Chest/Abdomen/Pelvis CT 05/28/21 12:18 IMPRESSION: The patient is status post aortic valve replacement. There is evidence of a mild degree of mural thickening of the proximal portion of the descending thoracic aorta. Electronically Signed: Connor Haider MD at 13:35 EST , Thoracic Spine MRI 05/28/21 16:51 IMPRESSION: No acute fracture or other significant bony pathology Degenerative changes and multilevel disc degeneration. Small right paracentral disc protrusion at T9-T10 without spinal stenosis or cord compression Electronically Signed: Kash Herbert MD at 20:14 EST , Lumbar Spine MRI 05/28/21 18:42 IMPRESSION: Multilevel degenerative changes, as described above. L2-3: Right paracentral disc herniation. No spinal stenosis. L4-5: Disc herniation. No spinal stenosis. L5-S1: Disc herniation. No spinal stenosis. Discogenic endplate changes. Vacuum disc phenomenon. Electronically Signed: Roel Lima MD at 19:49 EST Reading Location ID and State: [facility] / [place] , Service support ,
[2021-05-29] MEDS: Acetaminophen 325 MG Tablet 650 MG PO ×2 (12:09→18:09)
[2021-05-29 14:13] LABS: International Normalized Ratio 2.3; Prothrombin Time (Protime)PT. 24.2 SECONDS (11.7-14.9)
--- NOTE | 2021-05-29 15:48 | PN.HOSP_ITS ---
Subjective Subjective Patient has chronic history of upper and lower back pain, from lower thoracic to lumbar spine mainly over midline with radiation to size. Occasionally patient gets radiation to legs, sciatica in nature predominantly in the LLE once in a month, all the way to the left ankle. MRI findings and MONET discussed with the patient. Currently he feels mild discomfort. Objective Data Objective Data Vital Signs: Vital Signs Temp Pulse Resp BP Pulse Ox 98.1 F 61 18 91/55 L 96 05/29/21 15:08 05/29/21 15:08 05/29/21 15:08 05/29/21 15:08 05/29/21 15:08 Oxygen Delivery Method Room Air Weight: 187 lb 11.2 oz Body Mass Index (BMI) 28.5 Intake & Output: Intake and Output for Last 24 Hours 05/27/21 05/28/21 05/29/21 23:59 23:59 23:59 Intake Total 1000 / 1000 200 / 200 Balance 1000 / 1000 200 / 200 Lab / Micro Data Result Diagrams: 05/29/21 04:33 05/29/21 04:33 Labs: Laboratory Results - last 24 hr 05/29/21 04:33: WBC 9.6, RBC 4.43 L, Hgb 13.1, Hct 40.8, MCV 92.1, MCH 29.6, MCHC 32.1 D, RDW Std Deviation 44.9 H, RDW Coeff of [place] 13.3, Plt Count 210, MPV 10.0, Immature Gran % (Auto) 1.400 H, Neut % (Auto) 70.6 H, Lymph % (Auto) 14.3 L, [place] % (Auto) 10.8 H, Eos % (Auto) 2.6, Baso % (Auto) 0.3, Absolute Neuts (auto) 6.8, Absolute Lymphs (auto) 1.37, Nucleated RBC % 0 05/29/21 04:33: PT 48.6 H, INR 5.4 H* 05/29/21 04:33: Sodium 138, Potassium 4.0, Chloride 105, Carbon Dioxide 28.0, Anion Gap 5, BUN 18, Creatinine 1.05, Estim Creat Clear Calc 71.48, Est GFR (MDRD) Af Amer 92, Est GFR (MDRD) Non-Af 76, BUN/Creatinine Ratio 17.1, Glucose 90, Calcium 8.5 05/29/21 06:46: Blood Type A NEGATIVE, Antibody Screen NEGATIVE 05/29/21 13:45: PT 24.2 H, INR 2.3 Micro: Microbiology 05/28/21 11:55 Nasal Secretion SARS-CoV-2 Antigen (Rapid) - Final Radiography Diagnostic Testing: Radiology Impression Thoracic Spine MRI 05/28/21 16:51 IMPRESSION: No acute fracture or other significant bony pathology Degenerative changes and multilevel disc degeneration. Small right paracentral disc protrusion at T9-T10 without spinal stenosis or cord compression Electronically Signed: Kash Herbert MD at 20:14 EST , Transesophageal Echocardiogram 05/28/21 16:53 Interpretation Summary Normal LV size. Left ventricular systolic function is normal. The estimated ejection fraction is 55 %. Bubble contrast study negative for right to left interatrial shunt. Bileaflet mechanical aortic valve. No vegetations seen ___ Ordering Physician: Kumar Cox Referring Physician: Lisa Mcconnell Performed By: Itzel White RDCS Lumbar Spine MRI 05/28/21 18:42 IMPRESSION: Multilevel degenerative changes, as described above. L2-3: Right paracentral disc herniation. No spinal stenosis. L4-5: Disc herniation. No spinal stenosis. L5-S1: Disc herniation. No spinal stenosis. Discogenic endplate changes. Vacuum disc phenomenon. Electronically Signed: Roel Lima MD at 19:49 EST , Rhythm Strip Rhythm Strip: Sinus Rhythm Rate: 71 Ectopy: None Physical Exam Narrative General: Alert, Oriented x3, Cooperative HEENT: Atraumatic, PERRLA, EOMI, Normocephalic Oral: No Gingival or Mucosal Lesions/ Ulcerations Neck: Supple, No JVD, Negative Carotid Bruits Lungs: Air entry diminished in bilateral lung bases. No crepitation/rhonchi Cardiovascular: Regular rate, Regular Rhythm, Normal S1, Normal S2, prosthetic aortic valve click over right and left second ICS. Abdomen: Bowel Sounds Present, Soft, Non Tender, Non-Distended : No renal angle tenderness. No suprapubic tenderness. Extremities/spine: Mild tenderness over T12 level. ROM of lumbar spine mildly restricted. No edema, Capillary Refill Less than 3 Seconds Skin: No rashes, No breakdown Musculoskeletal: No Tenderness to Palpation of Joints or Extremities. Neurological: Cranial nerves II-XII grossly intact, DTR 2+/4 and Symmetrical, Neuro grossly intact Psych/Mental Status: Normal Affect, Appropriate. Assessment & Plan Assessment/Plan (1) Fever of unknown origin: PLAN: 1. Thoracic and lumbar back pain-etiology unclear at this point, patient will be placed in observation status on [facility] 3. Patient had MRI of thoracic and lumbar spine done. Mainly shows degenerative changes at multilevel discs small right paracentral disc protrusion at T9-10 without spinal stenosis or cord compression. Mild disc protrusion and herniation at L2-3, L3-4 L5-S1. MONET negative reported normal. #2 intermittent fevers over the last 2 months-etiology unclear: Repeat WBC count normal 9.6 thousand. Leukocytosis resolved. No fever. Patient seen by ID and I agree with observation of antibiotic. Blood cultures x2 ordered and received. . #3 paroxysmal atrial fibrillation-at the time of my examination, patient is in atrial fibrillation, however, his EKG in the emergency room showed a normal sinus rhythm. Initial INR supratherapeutic and warfarin was held. Current INR 2.3 and warfarin resumed at lower dose 3 mg daily. Check INR daily. #4 mechanical [place] aortic valve replacement on warfarin- as mentioned above #5 essential hypertension- home medications #6 hyperlipidemia-on his present medication VT prophylaxis: On warfarin Clinical Impression(s) from Imaging Studies Chest X-Ray 05/28/21 11:40 IMPRESSION: Status post mitral valve replacement. No acute abnormality is seen. Chest/Abdomen/Pelvis CT 05/28/21 12:18 IMPRESSION: The patient is status post aortic valve replacement. There is evidence of a mild degree of mural thickening of the proximal portion of the descending thoracic aorta. Thoracic Spine MRI 05/28/21 16:51 IMPRESSION: No acute fracture or other significant bony pathology Degenerative changes and multilevel disc degeneration. Small right paracentral disc protrusion at T9-T10 without spinal stenosis or cord compression Transesophageal Echocardiogram 05/28/21 16:53 Interpretation Summary Normal LV size. Left ventricular systolic function is normal. The estimated ejection fraction is 55 %. Bubble contrast study negative for right to left interatrial shunt. Bileaflet mechanical aortic valve. No vegetations seen Lumbar Spine MRI 05/28/21 18:42 IMPRESSION: Multilevel degenerative changes, as described above. L2-3: Right paracentral disc herniation. No spinal stenosis. L4-5: Disc herniation. No spinal stenosis. L5-S1: Disc herniation. No spinal stenosis. Discogenic endplate changes. Vacuum disc phenomenon. Charges/Coding Visit Charges Inpatient E&M: 39880 Subs Hosp L2
[2021-05-29] MEDS: Zolpidem Tartrate 5 MG Tablet PO (21:02)
[2021-05-30] MEDS: HYDROmorphone 1 MG/ML Syringe IV (03:37)
[2021-05-30] MEDS: 0.9% Saline Lock 10 ML Syringe IV (03:42)
[2021-05-30 03:45] VITALS: BP 121/77; PULSE 90; RESP 18; TEMP 36.4; O2SAT 93
[2021-05-30 04:55] LABS: Absolute Lymphocyte Count 1.08 X10^3/uL (0.83-4.51); Absolute Neutrophil Count 6.1 X10^3/uL (2.0-7.7); Basophil# 0.03 X10^3/uL; Basophil% 0.4 % (0-1); Eosinophils% 2.4 % (0-5); Hematocrit 41.5 % (40-54); Hemoglobin 13.3 g/dL (13.0-16.5); Lymphocyte # 1.08 X10^3/ul (0.83-4.51); Mean Corpuscular Hgb 29.5 pg (27.0-32.0); Mean Platelet Vol. 10.8 fl (6.2-12.0); Monocyte# 0.79 X10^3/uL; Monocyte% 9.5 % (0-10); NRBC Flagged by Analyzer 0 % (0-5); Neutrophil # 6.13 X10^3/uL (2.7-7.7); Neutrophil % 73.9 % (47-70); Platelet Count 165 K/mm3 (150-450); RBC Distribution Width CV 13.2 % (11.6-14.6); Red Blood Count 4.51 M/mm3 (4.6-6.2); White Blood Count 8.3 K/mm3 (4.4-11.0)
[2021-05-30 05:12] LABS: International Normalized Ratio 2.2; Prothrombin Time (Protime)PT. 23.7 SECONDS (11.7-14.9)
[2021-05-30 08:05] VITALS: BP 119/70; PULSE 65; RESP 18; TEMP 36.4; O2SAT 100
[2021-05-30] MEDS: hydroCHLOROthiazide 6.25mg TAB 12.5 MG PO (08:09)
[2021-05-30 08:10] VITALS: PULSE 65
[2021-05-30] MEDS: Metoprolol(XL)Succ 25 MG Tablet PO (08:10)
[2021-05-30] MEDS: Aspirin 81 MG TAB.CHEW PO (08:10)
[2021-05-30] MEDS: Ramipril 10 MG Capsule PO (08:10)
[2021-05-30] MEDS: Acetaminophen 325 MG Tablet 650 MG PO (08:16)
--- NOTE | 2021-05-30 09:35 | PCM.DC ---
Discharge Instructions Diet Discharge Diet: Low fat / Low cholesterol and 2000 mg Sodium Diet Activity Discharge Activity: Return to Normal Activity Dressing / Incision Call your doctor if you observe: Fever of 101 or Higher, Coldness, Increased Pain, Numbness or Tingling, Change in Color, Inability to urinate, Inability to have a bowel movement, Shortness of breath, Dizziness, Fainting spells, Swelling in the ankles, Chest pain, Prolonged hiccupping, Increased palpitations (irregular heartbeat), Calf discomfort and Uncontrolled pain Follow Up Care Test Results: Test results from this visit will be discussed in further detail at your follow-up appointment, if applicable. Discharge Plan Admission Admit Date/Time: 05/28/21 16:35 Primary Reason for Your Visit: Acute back pain Attending Provider: Arnulfo Bain Primary Care Provider: Lisa Mcconnell NP Consulting Providers: Wilton Callahan Instructions Additional Instructions / Restrictions: Advised to monitor INR daily until INR is stable. Titrate the dose of warfarin accordingly in consultation with PCP. Keep INR between 2.5-3.5 Discharge Orders/Prescriptions Prescriptions: Continued hydrochlorothiazide 12.5 mg tablet 12.5 mg PO DAILY Qty: 90 RF: 3 ramipril 10 mg capsule 10 mg PO BID Qty: 180 RF: 4 aspirin 81 MG tablet,chewable 81 mg PO DAILY@0800 RF: 0 rosuvastatin 5 mg tablet 5 mg PO MOWEFR RF: 0 metoprolol succinate 25 mg tablet extended release 24 hr 25 mg PO BID Qty: 180 RF: 3 Changed warfarin 5 mg Tablet 5 mg PO DAILY Qty: 0 RF: 0 Discontinued warfarin 4 mg tablet 6 mg PO SUTUTHSA RF: 0 Referrals / Follow Up: Lisa Mcconnell NP, [employer] [Primary Care Provider] - In 1 Week (Chronic back pain) Disposition Disposition (needs filled in before D/C Order can be placed): Home, Self Care
--- NOTE | 2021-05-30 09:38 | DS.PCM_ITS ---
Providers Date of Admission: 05/28/21 Date of Discharge: 05/30/21 Primary Care Physician: MEGHANN Lechuga Consultations 05/28/21 16:53 Consult: Infectious Disease Routine Consulting Provider: Wilton Callahan Reason for Consult: ? endocarditis EMERGENT Consult: No MD Notified: Yes Date Notified: 05/28/21 Time Notified: 15:29 Method of Notification: Verbal Reason For Visit: BACK PAIN, FEVER OF UNKNOWN ORIGIN Diagnosis Discharge Diagnosis (1) Fever of unknown origin: Status: Acute Code(s): R50.9 - Fever, unspecified Medications at Discharge Home Medications aspirin 81 mg PO DAILY@0800 06/10/13 hydrochlorothiazide 12.5 mg tablet 12.5 mg PO DAILY #90 tab 07/21/20 ramipril 10 mg capsule 10 mg PO BID #180 cap 07/21/20 metoprolol succinate 25 mg tablet,extended release 24 hr 25 mg PO BID #180 tab 05/23/21 rosuvastatin 5 mg PO MOWEFR 05/28/21 warfarin 5 mg PO DAILY #0 tab 05/30/21 Hospital Course Summary of Care Provided Hospital Course: 60-year-old obese gentleman was admitted for intermittent fever for last 2 months along with thoracic and lumbar back pain was severe. Patient had 2 rounds of antibiotics in March 2021 in April 2021. 1. Thoracic and lumbar back pain most likely due to thoracolumbar spine degenerative disc disease. Patient was admitted on [facility] floor in observation status. Patient had MRI of thoracic and lumbar spine done. Mainly shows degenerative changes at multilevel discs small right paracentral disc protrusion at T9-10 without spinal stenosis or cord compression. Mild disc protrusion and herniation at L2-3, L3-4 L5-S1. MONET negative reported normal. Patient advised outpatient PT and OT and follow with PCP. Does not have severe back pain but mild discomfort. Infectious process/osteomyelitis/discitis ruled out. #2 intermittent fevers over the last 2 months-etiology unclear: Repeat WBC count normal 9.6 thousand. Leukocytosis resolved. No fever. Patient seen by ID and I agree with observation of antibiotic. Blood culture negative for 48 hours. . #3 paroxysmal atrial fibrillation-at the time of my examination, patient is in atrial fibrillation, however, his EKG in the emergency room showed a normal sinus rhythm. Initial INR supratherapeutic and warfarin was held. Current INR 2.3 and warfarin resumed at lower dose 3 mg daily. INR 2.2. Try to keep INR around 3.0. Patient discharged on warfarin 5 mg daily reduced from his home dose because of supratherapeutic INR. #4 mechanical [place] aortic valve replacement on warfarin- as mentioned above #5 essential hypertension- home medications #6 hyperlipidemia-on his present medication DVT prophylaxis: On warfarin Discharge medication reconciliation done. Discharge follow-up instructions completed. Discharge process discussed with the patient and all questions were answered to patient's satisfaction. Total time spent, exact 35 minutes on discharge meds reconciliation, examination, coordination of care with nurses and ancillary staff, review of imaging and blood test and discussion with the patient on follow-up instructions Clinical Impression(s) from Imaging Studies Chest X-Ray 05/28/21 11:40 IMPRESSION: Status post mitral valve replacement. No acute abnormality is seen. Chest/Abdomen/Pelvis CT 05/28/21 12:18 IMPRESSION: The patient is status post aortic valve replacement. There is evidence of a mild degree of mural thickening of the proximal portion of the descending thoracic aorta. Thoracic Spine MRI 05/28/21 16:51 IMPRESSION: No acute fracture or other significant bony pathology Degenerative changes and multilevel disc degeneration. Small right paracentral disc protrusion at T9-T10 without spinal stenosis or cord compression Transesophageal Echocardiogram 05/28/21 16:53 Interpretation Summary Normal LV size. Left ventricular systolic function is normal. The estimated ejection fraction is 55 %. Bubble contrast study negative for right to left interatrial shunt. Bileaflet mechanical aortic valve. No vegetations seen Lumbar Spine MRI 05/28/21 18:42 IMPRESSION: Multilevel degenerative changes, as described above. L2-3: Right paracentral disc herniation. No spinal stenosis. L4-5: Disc herniation. No spinal stenosis. L5-S1: Disc herniation. No spinal stenosis. Discogenic endplate changes. Vacuum disc phenomenon. Physical Exam Narrative Patient is mild back discomfort otherwise feeling good. Physical exam General: Alert, Oriented x3, Cooperative HEENT: Atraumatic, PERRLA, EOMI, Normocephalic Oral: No Gingival or Mucosal Lesions/ Ulcerations Neck: Supple, No JVD, Negative Carotid Bruits Lungs: Air entry diminished in bilateral lung bases. No crepitation/rhonchi Cardiovascular: Regular rate, Regular Rhythm, Normal S1, Normal S2, prosthetic aortic valve click over right and left second ICS. Abdomen: Bowel Sounds Present, Soft, Non Tender, Non-Distended : No renal angle tenderness. No suprapubic tenderness. Extremities/spine: Mild tenderness over T12 level. ROM of lumbar spine mildly restricted. No edema, Capillary Refill Less than 3 Seconds Skin: No rashes, No breakdown Musculoskeletal: No Tenderness to Palpation of Joints or Extremities. Neurological: Cranial nerves II-XII grossly intact, DTR 2+/4 and Symmetrical, Neuro grossly intact Psych/Mental Status: Normal Affect, Appropriate. HEENT normocephalic, head/scalp atraumatic, hearing grossly normal bilaterally and moist oral mucous membranes Eyes PERRL, EOMs intact bilaterally and conjunctivae normal Neck nuchal rigidity, supple, no JVD, thyroid normal and no carotid bruits General: trachea midline Resp normal respiratory effort, no retractions, no use of accessory muscles and clear to auscultation bilaterally Auscultation: Negative for rales, rhonchi or wheezes Cardio S1 normal heart sound, S2 normal heart sound, no murmurs, no rub and no gallops GI normal to inspection, nondistended, normoactive bowel sounds, soft to palpation, non-tender and non-distended Extremity normal to inspection and no clubbing, cyanosis or edema Skin no rashes or lesions noted, no wounds and skin turgor normal General Skin Exam: no breakdown Neuro oriented x3, CN's II-XII intact bilaterally, no focal motor deficits and no sensory deficits noted Sensorium / Orientation: awake and alert Speech: speech normal Psych affect normal Medical Records Data Medical Nutrition Assessment Dietitian: Malnutrition Criteria Met Start: 05/29/21 15:50 Freq: Status: Active Protocol: Document 05/29/21 15:51 (Rec: 05/29/21 15:51 [id number]) Nutrition Malnutrition Evidence of Malnutrition Exists Yes Malnutrition (moderate): Acute Illness/Injury Evidenced By Suboptimal Energy Intake ( Moderate),Weight Loss ( Moderate) Clinical Problem Acute Disease or Injury Related Malnutrition Etiology moderate, acute malnutrition r /t inadequate energy intake during acute illness Signs/Symptoms as evidenced by estimated PO intake meeting <75% of estimated energy needs x 1 week, unintentional wt loss of 7.3#/3.7% x 1-2 weeks Status Active Problem Recommendation Dietitian Recommendations/Changes continue regular diet; will adjust supplement to ensure enlive 120mL 4x/day w/ medpass to encourage PO intake at meals. Weight / BMI Weight Weight: 187 lb 11.19 oz Body Mass Index (BMI) 28.5 ABG / Lab / Microbiology Data Result Diagrams: 05/30/21 04:25 05/29/21 04:33 Laboratory: Laboratory Results - last 24 hr 05/29/21 13:45: PT 24.2 H, INR 2.3 05/30/21 04:25: WBC 8.3, RBC 4.51 L, Hgb 13.3, Hct 41.5, MCV 92.0, MCH 29.5, MCHC 32.0, RDW Std Deviation 44.0 H, RDW Coeff of Terrance 13.2, Plt Count 165, MPV 10.8, Immature Gran % (Auto) 0.800, Neut % (Auto) 73.9 H, Lymph % (Auto) 13.0 L, [place] % (Auto) 9.5, Eos % (Auto) 2.4, Baso % (Auto) 0.4, Absolute Neuts (auto) 6.1, Absolute Lymphs (auto) 1.08, Nucleated RBC % 0 05/30/21 04:25: PT 23.7 H, INR 2.2 Microbiology: Microbiology 05/28/21 14:20 Blood Culture (Wb) - Left Hand Blood Culture - Preliminary No growth in 48 hours. 05/28/21 11:56 Blood Culture (Wb) - Anticubital Left Blood Culture - Preliminary No growth in 48 hours. 05/28/21 11:55 Nasal Secretion SARS-CoV-2 Antigen (Rapid) - Final Radiography Diagnostic Testing: Radiology Impression Transesophageal Echocardiogram 05/28/21 16:53 Interpretation Summary Normal LV size. Left ventricular systolic function is normal. The estimated ejection fraction is 55 %. Bubble contrast study negative for right to left interatrial shunt. Bileaflet mechanical aortic valve. No vegetations seen Ordering Physician: Kumar Cox Referring Physician: Lisa Mcconnell Performed By: Itzel White RDCS D/C Instructions Discharge Diet: Low fat / Low cholesterol and 2000 mg Sodium Diet Call your doctor if you observe: Fever of 101 or Higher, Coldness, Increased Pain, Numbness or Tingling, Change in Color, Inability to urinate, Inability to have a bowel movement, Shortness of breath, Dizziness, Fainting spells, Swelling in the ankles, Chest pain, Prolonged hiccupping, Increased palpitations (irregular heartbeat), Calf discomfort and Uncontrolled pain Meaningful Use Info Meaningful Use Diagnoses (Choose all that apply): None applicable Discharge Plan Admission Admit Date/Time: 05/28/21 16:35 Primary Reason for Your Visit: Acute back pain Attending Provider: Arnulfo Bain Primary Care Provider: Lisa Mcconnell NP Consulting Providers: Wilton Callahan Instructions Additional Instructions / Restrictions: Advised to monitor INR daily until INR is stable. Titrate the dose of warfarin accordingly in consultation with PCP. Keep INR between 2.5-3.5 Discharge Orders/Prescriptions Prescriptions: Continued hydrochlorothiazide 12.5 mg tablet 12.5 mg PO DAILY Qty: 90 RF: 3 ramipril 10 mg capsule 10 mg PO BID Qty: 180 RF: 4 aspirin 81 MG tablet,chewable 81 mg PO DAILY@0800 RF: 0 rosuvastatin 5 mg tablet 5 mg PO MOWEFR RF: 0 metoprolol succinate 25 mg tablet extended release 24 hr 25 mg PO BID Qty: 180 RF: 3 Changed warfarin 5 mg Tablet 5 mg PO DAILY Qty: 0 RF: 0 Discontinued warfarin 4 mg tablet 6 mg PO SUTUTHSA RF: 0 Referrals / Follow Up: Lisa Mcconnell REPOSSESSION AGENT, REPOSSESSION AGENT-C [Primary Care Provider] - In 1 Week (Chronic back pain) Disposition Disposition (needs filled in before D/C Order can be placed): Home, Self Care Charges/Coding Visit Charges OBSV E&M: 35157 Observation care discharge
--- NOTE | 2021-05-30 09:54 | CASEMGMT ---
NATA CM in to pt room. Pt sitting up in chair dressed, ready for dc. Pt states he does not need any services at home. States his strength is good, and he is anxious to go home. No needs at this time.
[2021-05-30 11:50] VITALS: BP 126/81; PULSE 56; RESP 16; TEMP 36.6; O2SAT 97
== END 2021-05-30 11:53 | disposition home or self-care (01) ==
LOC: ED 14:21 → MS3 16:46
PROVIDERS: Family Medicine; Admitting Provider Internal Medicine; Emergency Provider Emergency Medicine; PCP Nurse Practitioner; Visit Provider Internal Medicine
DX: M51.24 Other intervertebral disc displacement, thoracic region (principal); I48.0 Paroxysmal atrial fibrillation; I10 Essential (primary) hypertension; E78.5 Hyperlipidemia, unspecified; I25.10 Atherosclerotic heart disease of native coronary artery without angina pectoris; Z95.2 Presence of prosthetic heart valve; M51.27 Other intervertebral disc displacement, lumbosacral region; Z79.82 Long term (current) use of aspirin; R79.1 Abnormal coagulation profile; Z79.01 Long term (current) use of anticoagulants; M51.26 Other intervertebral disc displacement, lumbar region; Z79.899 Other long term (current) drug therapy; R50.9 Fever, unspecified
CPT/HCPCS: 36415; 36430; 71045; 71260; 72146; 72148; 74177; 80048; 80053; 81001; 82550; 83605; 83880; 84484; 85025; 85610; 86850; 86900; 86901; 87040; 87426; 93005; 93312; 93320; 93325; 96361; 96374; 96375; 96376; 97802; 99218; 99285; J7030; J7040; P9017; Q9967; A4216; G0378; J2405

== ENCOUNTER 2021-06-04 16:16 | Outpatient (RCR) | payer OTHER, SELFPAY ==
[2021-05-22 02:32] VITALS: BMI 29.6
[2021-06-01 11:02] LABS: International Normalized Ratio 2.2; Prothrombin Time (Protime)PT. 23.5 SECONDS (11.7-14.9)
[2021-06-04 17:31] LABS: International Normalized Ratio 3.3; Prothrombin Time (Protime)PT. 32.5 SECONDS (11.7-14.9)
== END 2021-06-04 23:59 | disposition home or self-care (01) ==
LOC: LAB 16:16
PROVIDERS: Family Provider Nurse Practitioner; PCP Nurse Practitioner; Referring Provider Internal Medicine Cardiovascular Disease; Visit Provider Internal Medicine Cardiovascular Disease
DX: I48.0 Paroxysmal atrial fibrillation (principal); Z95.2 Presence of prosthetic heart valve; Z79.01 Long term (current) use of anticoagulants
CPT/HCPCS: 36415; 85610

== ENCOUNTER 2021-06-23 07:48 | Outpatient (CLI) | payer OTHER, SELFPAY ==
[2021-06-23 08:45] LABS: Hematocrit 43.9 % (40-54); Hemoglobin 14.2 g/dL (13.0-16.5); Mean Corp Hgb Conc 32.3 g/dL (32-36); Mean Corpuscular Hgb 30.3 pg (27.0-32.0); Mean Corpuscular Volume 93.6 fL (80-94); Mean Platelet Vol. 11.2 fl (6.2-12.0); POSITIVE COUNT YES; RBC Distribution Width CV 13.1 % (11.6-14.6); RBC Distribution Width SD 44.4 fl (35.1-43.9); Red Blood Count 4.69 M/mm3 (4.6-6.2)
[2021-06-23 08:49] LABS: Scan Indicated on CBC? Y/N YES- FLAGS NOTED
[2021-06-23 09:04] LABS: Platelet Count 148 K/mm3 (150-450)
[2021-06-23 09:06] LABS: Differential Comment SCANNED
[2021-06-23 09:20] LABS: ALB/GLOB Ratio 1.1 RATIO (0.9-2.4); AST(SGOT) 28 U/L (15-37); Alanine Aminotransfer ALT/SGPT 37 U/L (16-61); Albumin, Serum 3.6 g/dL (3.2-5.0); Alkaline Phosphatase 71 U/L (45-117); Anion Gap 3 (5-15); BUN 16 mg/dL (7-18); BUN/Creat Ratio 12.6 RATIO (10-20); Chloride 108 mmol/L (98-107); Cholesterol 205 mg/dL (200); Creatinine, Serum 1.27 mg/dL (0.70-1.30); EST Glomerular Filtration Rate 61 mL/min (>60); Est Glom Filt Rate - Afr Amer 74 mL/min (>60); Globulin 3.3 g/dL (2.2-4.2); Glucose 100 mg/dL (74-106); High Density Lipoprotein 37 mg/dL; Potassium 3.9 mmol/L (3.5-5.1); Protein, Total 6.9 g/dL (6.4-8.2); Sodium Level 141 mmol/L (136-145); Thyroid Stim Hormone (TSH) 2.56 uIU/mL (0.358-3.74); Triglycerides 188 mg/dL; Very Low Density Lipoprotein 38 mg/dL (5-40)
== END 2021-06-23 23:59 | disposition home or self-care (01) ==
LOC: LAB 07:50
PROVIDERS: PCP Nurse Practitioner; Referring Provider Nurse Practitioner; Visit Provider Nurse Practitioner
DX: E04.1 Nontoxic single thyroid nodule (principal); E78.00 Pure hypercholesterolemia, unspecified; D72.829 Elevated white blood cell count, unspecified
CPT/HCPCS: 36415; 80053; 80061; 84443; 85027

== ENCOUNTER 2021-07-12 16:15 | Outpatient (RCR) | payer OTHER, SELFPAY ==
[2021-06-19 10:35] VITALS: BMI 29.6
[2021-06-19 18:42] LABS: International Normalized Ratio 4.1
[2021-06-28 17:02] LABS: International Normalized Ratio 3.5; Prothrombin Time (Protime)PT. 33.9 SECONDS (11.7-14.9)
[2021-07-12 17:19] LABS: International Normalized Ratio 3.4; Prothrombin Time (Protime)PT. 33.6 SECONDS (11.7-14.9)
== END 2021-07-19 18:00 | disposition home or self-care (01) ==
LOC: LAB 16:15
PROVIDERS: Family Provider Nurse Practitioner; PCP Nurse Practitioner; Referring Provider Internal Medicine Cardiovascular Disease; Visit Provider Internal Medicine Cardiovascular Disease
DX: I48.0 Paroxysmal atrial fibrillation (principal); Z95.2 Presence of prosthetic heart valve; Z79.01 Long term (current) use of anticoagulants
CPT/HCPCS: 36415; 85610

== ENCOUNTER 2021-08-02 07:18 | Outpatient (CLI) | payer OTHER, SELFPAY ==
--- NOTE | 2021-08-02 17:04 | STRESSREP ---
Stress Test Report Exercise Kumar. Perfusion stress test. 60-year-old man with a history of chest pain for Stress protocol: Rest EKG demonstrates sinus bradycardia with a rate of 49 bpm normal intervals are noted resting blood pressure is 140/70 2 m of mercury. The patient exercised according to a regular Jarod protocol for total duration of 7 minutes. Patient completed 1 minute into stage III of the Jarod protocol the maximum heart rate attained 150 bpm which was 94% of max impacted heart rate the maximum workload was 10.1 metabolic equivalents. At rest there were no ST or T wave changes noted to suggest ischemia and at peak exercise nonspecific ST changes were noted which did not meet the criteria for ischemia. Short run of atrial fibrillation was noted. Test was terminated due to leg pain. Myocardial perfusion protocol. 14.8 mCi of technetium 99m sestamibi was injected at rest. The patient exercised according to regular Jarod protocol for total duration of 7 minutes and at peak exercise 44.1 mCi of technetium 99m sestamibi was injected stress images were obtained stress and rest images were reconstructed in comparing the short axis vertical long and horizontal long axis. Gated images were also obtained to Perfusion SPECT analysis: Review of the stress images demonstrate normal uptake of tracer noted in all areas of the myocardium. The resting images similar demonstrate normal uptake of tracer noted in all areas of the myocardium. No areas of reversibility noticed just ischemia and no previous infarct is noted. Gated SPECT analysis: The gated ejection fraction is 57%. Conclusion: Normal exercise myocardial fusion stress test at a moderate workload. Preserved ejection fraction. Paroxysmal atrial fibrillation noted.
== END 2021-08-02 23:59 | disposition home or self-care (01) ==
PROVIDERS: PCP Nurse Practitioner; Referring Provider Nurse Practitioner Gerontology; Visit Provider Nurse Practitioner Gerontology
DX: R07.9 Chest pain, unspecified (principal); R53.83 Other fatigue
CPT/HCPCS: 78452; 93017; A9500; A4216

== ENCOUNTER 2021-08-02 09:02 | Outpatient (RCR) | payer OTHER, SELFPAY ==
[2021-07-20 02:50] VITALS: BMI 29.6
[2021-08-02 09:31] LABS: Prothrombin Time (Protime)PT. 30.7 SECONDS (11.7-14.9)
== END 2021-08-02 18:00 | disposition home or self-care (01) ==
LOC: LAB 09:02
PROVIDERS: Family Provider Nurse Practitioner; PCP Nurse Practitioner; Referring Provider Internal Medicine Cardiovascular Disease; Visit Provider Internal Medicine Cardiovascular Disease
DX: I48.0 Paroxysmal atrial fibrillation (principal); Z95.2 Presence of prosthetic heart valve; Z79.01 Long term (current) use of anticoagulants
CPT/HCPCS: 36415; 85610

== ENCOUNTER 2021-08-30 16:00 | Outpatient (RCR) | payer OTHER, SELFPAY ==
[2021-08-19 04:32] VITALS: BMI 29.6
[2021-08-30 18:13] LABS: International Normalized Ratio 3.2; Prothrombin Time (Protime)PT. 32.7 SECONDS (11.7-14.9)
== END 2021-08-30 18:00 | disposition home or self-care (01) ==
LOC: LAB 16:00
PROVIDERS: Family Provider Nurse Practitioner; PCP Nurse Practitioner; Referring Provider Internal Medicine Cardiovascular Disease; Visit Provider Internal Medicine Cardiovascular Disease
DX: I48.0 Paroxysmal atrial fibrillation (principal); Z95.2 Presence of prosthetic heart valve; Z79.01 Long term (current) use of anticoagulants
CPT/HCPCS: 36415; 85610

== ENCOUNTER → 2021-09-21 | Outpatient (CLI) | payer OTHER, SELFPAY ==
[2021-09-21 14:26] LABS: Absolute Lymphocyte Count 1.45 X10^3/uL (0.83-4.51); Absolute Neutrophil Count 5.6 X10^3/uL (2.0-7.7); Basophil# 0.05 X10^3/uL; Basophil% 0.6 % (0-1); Eosinophil# 0.24 X10^3/uL; Hematocrit 44.2 % (40-54); Hemoglobin 14.1 g/dL (13.0-16.5); Lymphocyte # 1.45 X10^3/ul (0.83-4.51); Lymphocyte % 17.9 % (19-41); Mean Corp Hgb Conc 31.9 g/dL (32-36); Mean Corpuscular Hgb 29.5 pg (27.0-32.0); Mean Corpuscular Volume 92.5 fL (80-94); Mean Platelet Vol. 11.3 fl (6.2-12.0); Monocyte# 0.75 X10^3/uL; Monocyte% 9.3 % (0-10); NRBC Flagged by Analyzer 0 % (0-5); Neutrophil # 5.56 X10^3/uL (2.7-7.7); Neutrophil % 68.7 % (47-70); POSITIVE COUNT YES; RBC Distribution Width CV 12.3 % (11.6-14.6); RBC Distribution Width SD 42.1 fl (35.1-43.9); Red Blood Count 4.78 M/mm3 (4.6-6.2); White Blood Count 8.1 K/mm3 (4.4-11.0)
[2021-09-21 14:33] LABS: Partial Thromboplast Time 40.8 Seconds (24.1-36.2)
[2021-09-21 14:50] LABS: Differential Indicated SCAN CRITERIA MET
[2021-09-21 15:05] LABS: Anion Gap 2 (5-15); BUN 15 mg/dL (7-18); BUN/Creat Ratio 12.4 RATIO (10-20); Calcium,Total 9.6 mg/dL (8.5-10.1); Chloride 108 mmol/L (98-107); Creatinine, Serum 1.21 mg/dL (0.70-1.30); EST Glomerular Filtration Rate 65 mL/min (>60); Est Glom Filt Rate - Afr Amer 78 mL/min (>60); Glucose 88 mg/dL (74-106); Sodium Level 140 mmol/L (136-145)
[2021-09-21 15:25] LABS: Platelet Estimate ADEQUATE (ADEQ); Red Cell Morphology NORM C+C NORMAL (NORM C&C)
== END | disposition home or self-care (01) ==
PROVIDERS: PCP Nurse Practitioner Family; Referring Provider Nurse Practitioner Gerontology; Visit Provider Nurse Practitioner Gerontology
DX: R53.83 Other fatigue (principal); I48.0 Paroxysmal atrial fibrillation
CPT/HCPCS: 36415; 80048; 85025; 85730

== ENCOUNTER 2021-10-01 07:54 | Day surgery (SDC) | payer OTHER, SELFPAY ==
[2021-09-28 08:02] VITALS: BMI 29.2
[2021-10-01 08:05] LABS: INR Fingerstick 2.2
--- NOTE | 2021-10-01 09:54 | CL.D_ITS ---
Patient Name: RUT RILEY Study Date: 10/01/2021 Performing: Rad Salamanca MD Ht: 68.11 inches 173 cm : 1960 Wt: 191.8 lbs 87 kg Age: 61 Gender: male BSA: 2.01 PROCEDURE(S) PERFORMED [id number]-([id number])C/COR CLINICAL PROFILE AND INDICATIONS Indications: Suspected CAD Heart Failure: None Stress/Imaging Date: 08/02/2021 CAD Presentations: Symptom unlikely to be ischemic. CONCLUSIONS Non obstructive coronary arteries RECOMMENDATIONS Medical therapy DESCRIPTION OF PROCEDURE The patient arrived to the procedure lab. The risks and benefits of the procedure as well as a full d escription of our services here and current unavailability of surgical backup were fully explained to the patient and/or their significant other prior to the catheterization. The Timeout was completed, verifying the correct patient and procedure. The patient's procedural site was prepped and draped in the usual fashion. Local anesthetic was given subcutaneously to right radial region with Lidocaine 2% . Using a modified Seldinger technique, arterial access was obtained via the right radial artery, a 6 Fr sheath was inserted. Left Coronary Artery selective angiography was performed in multiple views u sing a 5 Fr. 4.0 Duchesne catheter. Right Coronary Artery selective angiography was then performed in mu ltiple views using a 5 Fr. 4.0 Duchesne catheter.The arterial sheath was pulled and a TR Band was applie d for hemostasis CORONARY ANGIOGRAPHY DOMINANCE: Right Dominant LEFT HEART ASSESSMENT Left Ventricular Ejection Fraction: by Echo 55 % Normal LV wall motion Normal Left Ventricular systolic function LEFT MAIN: Angiographically normal LEFT ANTERIOR DESCENDING ARTERY: No significant disease noted CIRCUMFLEX ARTERY: No significant disease noted RIGHT CORONARY ARTERY: No significant disease noted COMPLICATIONS No Complications PROCEDURE MEDICATIONS Versed 1 mg IV Fentanyl 50 mcg IV Oxygen: 2 L/min via nasal cannula SUMMARY OF HEMODYNAMIC DATA Time AIR REST ECG 08:23:18 AO 94/51 (69) SA 09:34:45 AO 93/55 (70) 09:34:57 ECG 09:40:52 Signed By Rad Salamanca MD On 10/01/2021 09:53:39 Rad Salamanca MD
== END 2021-10-01 12:26 | disposition home or self-care (01) ==
LOC: CLSP 07:55
PROVIDERS: PCP Nurse Practitioner Family; Referring Provider Internal Medicine Cardiovascular Disease; Visit Provider Internal Medicine Cardiovascular Disease
DX: R00.2 Palpitations (principal); I71.4 Abdominal aortic aneurysm, without rupture; I48.0 Paroxysmal atrial fibrillation; I25.10 Atherosclerotic heart disease of native coronary artery without angina pectoris; I10 Essential (primary) hypertension; E78.00 Pure hypercholesterolemia, unspecified; E05.90 Thyrotoxicosis, unspecified without thyrotoxic crisis or storm; Z87.442 Personal history of urinary calculi; Z79.01 Long term (current) use of anticoagulants; Z79.899 Other long term (current) drug therapy; G43.909 Migraine, unspecified, not intractable, without status migrainosus; Z95.2 Presence of prosthetic heart valve; Z95.1 Presence of aortocoronary bypass graft; Q23.1 Congenital insufficiency of aortic valve; E78.2 Mixed hyperlipidemia
CPT/HCPCS: 36416; 85610; 93454; 99152; 99153; J7030; Q9967; C1769; C1894

== ENCOUNTER 2021-10-18 16:26 | Outpatient (RCR) | payer OTHER, SELFPAY ==
[2021-09-18 21:37] VITALS: BMI 29.6
[2021-09-27 17:08] LABS: International Normalized Ratio 2.8; Prothrombin Time (Protime)PT. 29.5 SECONDS (11.7-14.9)
[2021-10-18 18:39] LABS: International Normalized Ratio 3.2; Prothrombin Time (Protime)PT. 32.7 SECONDS (11.7-14.9)
== END 2021-10-18 23:59 | disposition home or self-care (01) ==
LOC: LAB 16:26
PROVIDERS: Family Provider Nurse Practitioner; PCP Nurse Practitioner Family; Referring Provider Internal Medicine Cardiovascular Disease; Visit Provider Internal Medicine Cardiovascular Disease
DX: I48.0 Paroxysmal atrial fibrillation (principal); Z95.2 Presence of prosthetic heart valve; Z79.01 Long term (current) use of anticoagulants
CPT/HCPCS: 36415; 85610

== ENCOUNTER 2021-11-16 14:57 | Outpatient (RCR) | payer OTHER, SELFPAY ==
[2021-10-19 08:01] VITALS: BMI 29.6
[2021-11-16 16:22] LABS: International Normalized Ratio 3.1; Prothrombin Time (Protime)PT. 31.2 SECONDS (11.7-14.9)
== END 2021-11-18 03:17 | disposition home or self-care (01) ==
LOC: LAB 14:57
PROVIDERS: Family Provider Nurse Practitioner; PCP Nurse Practitioner Family; Referring Provider Internal Medicine Cardiovascular Disease; Visit Provider Internal Medicine Cardiovascular Disease
DX: I48.0 Paroxysmal atrial fibrillation (principal); Z95.2 Presence of prosthetic heart valve; Z79.01 Long term (current) use of anticoagulants
CPT/HCPCS: 36415; 85610

== ENCOUNTER 2022-01-04 16:13 | Outpatient (RCR) | payer OTHER, SELFPAY ==
[2021-11-18 03:18] VITALS: BMI 29.6
[2021-12-21 11:46] LABS: International Normalized Ratio 2.4; Prothrombin Time (Protime)PT. 25.6 SECONDS (11.7-14.9)
[2022-01-04 17:26] LABS: International Normalized Ratio 2.9
== END 2022-01-04 18:00 | disposition home or self-care (01) ==
LOC: LAB 16:13
PROVIDERS: Family Provider Nurse Practitioner; PCP Nurse Practitioner Family; Referring Provider Internal Medicine Cardiovascular Disease; Visit Provider Internal Medicine Cardiovascular Disease
DX: I48.0 Paroxysmal atrial fibrillation (principal); Z95.2 Presence of prosthetic heart valve; Z79.01 Long term (current) use of anticoagulants
CPT/HCPCS: 36415; 85610

== ENCOUNTER 2022-02-01 14:48 | Outpatient (RCR) | payer OTHER, SELFPAY ==
[2022-01-18 23:40] VITALS: BMI 29.6
== END 2022-02-01 18:00 | disposition home or self-care (01) ==
LOC: LAB 14:48
PROVIDERS: Family Provider Nurse Practitioner; PCP Nurse Practitioner Family; Referring Provider Internal Medicine Cardiovascular Disease; Visit Provider Internal Medicine Cardiovascular Disease
DX: I48.0 Paroxysmal atrial fibrillation (principal); Z95.2 Presence of prosthetic heart valve; Z79.01 Long term (current) use of anticoagulants
CPT/HCPCS: 36415; 85610

== ENCOUNTER 2022-03-09 07:47 | Outpatient (RCR) | payer OTHER, SELFPAY ==
[2022-02-19 10:33] VITALS: BMI 29.6
[2022-03-09 08:33] LABS: International Normalized Ratio 2.8; Prothrombin Time (Protime)PT. 28.8 SECONDS (11.7-14.9)
[2022-03-09 08:44] LABS: AST(SGOT) 25 U/L (15-37); Alanine Aminotransfer ALT/SGPT 33 U/L (16-61); Albumin, Serum 3.8 g/dL (3.2-5.0); Alkaline Phosphatase 66 U/L (45-117); Bilirubin, Direct 0.12 mg/dL (0.00-0.30); Cholesterol 204 mg/dL (200); Globulin 3.1 g/dL (2.2-4.2); High Density Lipoprotein 39 mg/dL; Protein, Total 6.9 g/dL (6.4-8.2); Triglycerides 197 mg/dL; Very Low Density Lipoprotein 39 mg/dL (5-40)
== END 2022-03-20 18:00 | disposition home or self-care (01) ==
LOC: LAB 07:47
PROVIDERS: Nurse Practitioner Gerontology; Family Provider Nurse Practitioner; PCP Nurse Practitioner Family; Referring Provider Internal Medicine Cardiovascular Disease; Visit Provider Internal Medicine Cardiovascular Disease
DX: I48.0 Paroxysmal atrial fibrillation (principal); Z95.2 Presence of prosthetic heart valve; Z79.01 Long term (current) use of anticoagulants; E78.2 Mixed hyperlipidemia
CPT/HCPCS: 36415; 80061; 80076; 85610

== ENCOUNTER 2022-04-12 16:07 | Outpatient (RCR) | payer OTHER, SELFPAY ==
[2022-03-21 01:38] VITALS: BMI 29.6
[2022-04-12 16:46] LABS: International Normalized Ratio 3.3; Prothrombin Time (Protime)PT. 33.2 SECONDS (11.7-14.9)
== END 2022-04-12 18:00 | disposition home or self-care (01) ==
LOC: LAB 16:07
PROVIDERS: Family Provider Nurse Practitioner; PCP Nurse Practitioner Family; Referring Provider Internal Medicine Cardiovascular Disease; Visit Provider Internal Medicine Cardiovascular Disease
DX: I48.0 Paroxysmal atrial fibrillation (principal); Z95.2 Presence of prosthetic heart valve; Z79.01 Long term (current) use of anticoagulants
CPT/HCPCS: 36415; 85610

== ENCOUNTER 2022-05-10 16:09 | Outpatient (RCR) | payer OTHER, SELFPAY ==
[2022-04-21 05:40] VITALS: BMI 29.6
[2022-05-10 18:07] LABS: International Normalized Ratio 2.8; Prothrombin Time (Protime)PT. 29.2 SECONDS (11.7-14.9)
== END 2022-05-10 18:00 | disposition home or self-care (01) ==
LOC: LAB 16:09
PROVIDERS: Family Provider Nurse Practitioner; PCP Nurse Practitioner Family; Referring Provider Internal Medicine Cardiovascular Disease; Visit Provider Internal Medicine Cardiovascular Disease
DX: I48.0 Paroxysmal atrial fibrillation (principal); Z95.2 Presence of prosthetic heart valve; Z79.01 Long term (current) use of anticoagulants
CPT/HCPCS: 36415; 85610

== ENCOUNTER 2022-06-11 15:55 | Outpatient (RCR) | payer OTHER, SELFPAY ==
[2022-05-22 08:37] VITALS: BMI 29.6
[2022-06-11 16:23] LABS: International Normalized Ratio 3.3; Prothrombin Time (Protime)PT. 32.9 SECONDS (11.7-14.9)
== END 2022-06-11 18:00 | disposition home or self-care (01) ==
LOC: LAB 15:55
PROVIDERS: Family Provider Nurse Practitioner; PCP Nurse Practitioner Family; Referring Provider Internal Medicine Cardiovascular Disease; Visit Provider Internal Medicine Cardiovascular Disease
DX: I48.0 Paroxysmal atrial fibrillation (principal); Z95.2 Presence of prosthetic heart valve; Z79.01 Long term (current) use of anticoagulants
CPT/HCPCS: 36415; 85610

== ENCOUNTER 2022-07-16 07:16 | Outpatient (RCR) | payer OTHER, SELFPAY ==
[2022-06-18 23:00] VITALS: BMI 29.6
[2022-07-16 08:24] LABS: International Normalized Ratio 3.1; Prothrombin Time (Protime)PT. 31.9 SECONDS (11.7-14.9)
[2022-07-16 08:40] LABS: AST(SGOT) 28 U/L (15-37); Alanine Aminotransfer ALT/SGPT 28 U/L (16-61); Albumin, Serum 3.6 g/dL (3.2-5.0); Alkaline Phosphatase 57 U/L (45-117); Bilirubin, Direct 0.12 mg/dL (0.00-0.30); Cholesterol 179 mg/dL (200); Globulin 3.3 g/dL (2.2-4.2); High Density Lipoprotein 30 mg/dL; Protein, Total 6.9 g/dL (6.4-8.2); Triglycerides 210 mg/dL; Very Low Density Lipoprotein 42 mg/dL (5-40)
== END 2022-07-19 23:05 | disposition home or self-care (01) ==
LOC: LAB 07:16
PROVIDERS: Nurse Practitioner Gerontology; Family Provider Nurse Practitioner; PCP Nurse Practitioner Family; Referring Provider Internal Medicine Cardiovascular Disease; Visit Provider Internal Medicine Cardiovascular Disease
DX: Z95.2 Presence of prosthetic heart valve; Z79.01 Long term (current) use of anticoagulants; E78.2 Mixed hyperlipidemia
CPT/HCPCS: 36415; 80061; 80076; 85610

== ENCOUNTER 2022-08-16 15:49 | Outpatient (RCR) | payer OTHER, SELFPAY ==
[2022-07-19 23:05] VITALS: BMI 29.6
[2022-08-16 17:06] LABS: International Normalized Ratio 2.7; Prothrombin Time (Protime)PT. 28.6 SECONDS (11.7-14.9)
== END 2022-08-18 01:34 | disposition home or self-care (01) ==
LOC: LAB 15:49
PROVIDERS: Family Provider Nurse Practitioner; PCP Nurse Practitioner Family; Referring Provider Internal Medicine Cardiovascular Disease; Visit Provider Internal Medicine Cardiovascular Disease
DX: Z95.2 Presence of prosthetic heart valve (principal); Z79.01 Long term (current) use of anticoagulants
CPT/HCPCS: 36415; 85610

== ENCOUNTER 2022-09-17 16:21 | Outpatient (RCR) | payer OTHER, SELFPAY ==
[2022-08-18 01:34] VITALS: BMI 29.6
[2022-09-17 17:02] LABS: International Normalized Ratio 3.3; Prothrombin Time (Protime)PT. 34.3 SECONDS (11.7-14.9)
== END 2022-09-18 18:00 | disposition home or self-care (01) ==
LOC: LAB 16:21
PROVIDERS: Family Provider Nurse Practitioner; PCP Nurse Practitioner Family; Referring Provider Internal Medicine Cardiovascular Disease; Visit Provider Internal Medicine Cardiovascular Disease
DX: Z95.2 Presence of prosthetic heart valve (principal); Z79.01 Long term (current) use of anticoagulants
CPT/HCPCS: 36415; 85610

== ENCOUNTER 2022-10-18 06:29 | Outpatient (RCR) | payer OTHER, SELFPAY ==
[2022-09-19 08:20] VITALS: BMI 29.6
[2022-10-18 08:15] LABS: International Normalized Ratio 2.7; Prothrombin Time (Protime)PT. 28.7 SECONDS (11.7-14.9)
== END 2022-10-18 18:00 | disposition home or self-care (01) ==
LOC: LAB 06:29
PROVIDERS: Family Provider Nurse Practitioner; PCP Nurse Practitioner Family; Referring Provider Internal Medicine Cardiovascular Disease; Visit Provider Internal Medicine Cardiovascular Disease
DX: Z95.2 Presence of prosthetic heart valve (principal); Z79.01 Long term (current) use of anticoagulants; E78.2 Mixed hyperlipidemia
CPT/HCPCS: 36415; 85610

== ENCOUNTER 2022-11-18 13:26 | Outpatient (RCR) | payer OTHER, SELFPAY ==
[2022-10-19 01:55] VITALS: BMI 29.6
[2022-11-18 15:47] LABS: International Normalized Ratio 2.9; Prothrombin Time (Protime)PT. 31.1 SECONDS (11.7-14.9)
== END 2022-11-18 18:00 | disposition home or self-care (01) ==
LOC: LAB 13:26
PROVIDERS: Family Provider Nurse Practitioner; PCP Nurse Practitioner Family; Referring Provider Internal Medicine Cardiovascular Disease; Visit Provider Internal Medicine Cardiovascular Disease
DX: Z95.2 Presence of prosthetic heart valve (principal); Z79.01 Long term (current) use of anticoagulants; I48.0 Paroxysmal atrial fibrillation
CPT/HCPCS: 36415; 85610

== ENCOUNTER 2022-12-13 07:03 | Outpatient (RCR) | payer OTHER, SELFPAY ==
[2022-11-19 01:56] VITALS: BMI 29.6
[2022-12-13 07:43] LABS: Color, Urine Yellow (Yellow); Glucose, Dipstick Normal (Normal); Ketone-Dipstick Negative (Negative); Leukocyte Esterase-Dipstick Negative /ul (Negative); Nitrite-Dipstick Negative (Negative); Occult Blood-Urine 10 /ul (Negative); Protein-Dipstick 15 mg/dl (Negative); Urine Bilirubin Dipstick Negative (Negative); Urine Clarity Clear (Clear); Urine Urobilinogen Normal (Normal)
[2022-12-13 07:53] LABS: Absolute Lymphocyte Count 1.51 X10^3/uL (0.83-4.51); Absolute Neutrophil Count 10.2 X10^3/uL (2.0-7.7); Basophil# 0.04 X10^3/uL; Basophil% 0.3 % (0-1); Eosinophil# 0.03 X10^3/uL; Eosinophils% 0.2 % (0-5); Hematocrit 42.9 % (40-54); Hemoglobin 13.9 g/dL (13.0-16.5); Lymphocyte # 1.51 X10^3/ul (0.83-4.51); Lymphocyte % 11.7 % (19-41); Mean Corp Hgb Conc 32.4 g/dL (32-36); Mean Corpuscular Hgb 30.3 pg (27.0-32.0); Mean Corpuscular Volume 93.5 fL (80-94); Mean Platelet Vol. 11.3 fl (6.2-12.0); Monocyte# 1.07 X10^3/uL; Monocyte% 8.3 % (0-10); NRBC Flagged by Analyzer 0 % (0-5); Neutrophil # 10.21 X10^3/uL (2.7-7.7); Neutrophil % 78.9 % (47-70); POSITIVE COUNT YES; RBC Distribution Width CV 12.8 % (11.6-14.6); RBC Distribution Width SD 43.7 fl (35.1-43.9); Red Blood Count 4.59 M/mm3 (4.6-6.2); White Blood Count 12.9 K/mm3 (4.4-11.0)
[2022-12-13 08:07] LABS: International Normalized Ratio 3.3; Prothrombin Time (Protime)PT. 34.1 SECONDS (11.7-14.9)
[2022-12-13 08:18] LABS: Differential Indicated SCAN CRITERIA MET; Platelet Estimate ADEQUATE (ADEQ)
[2022-12-13 08:35] LABS: Anion Gap 5 (5-15); BUN 20 mg/dL (7-18); BUN/Creat Ratio 16.9 RATIO (10-20); Calcium,Total 9.1 mg/dL (8.5-10.1); Chloride 112 mmol/L (98-107); Creatinine, Serum 1.18 mg/dL (0.70-1.30); EST Glomerular Filtration Rate 66 mL/min (>60); Est Glom Filt Rate - Afr Amer 80 mL/min (>60); Glucose 100 mg/dL (74-106); Potassium 3.9 mmol/L (3.5-5.1); Sodium Level 144 mmol/L (136-145); Thyroid Stim Hormone (TSH) 1.61 uIU/mL (0.358-3.74)
[2022-12-13 08:40] LABS: Vitamin D,25 Hydroxy 46.6 ng/mL
[2022-12-13 09:13] LABS: AST(SGOT) 27 U/L (15-37); Alanine Aminotransfer ALT/SGPT 45 U/L (16-61); Albumin, Serum 3.8 g/dL (3.2-5.0); Alkaline Phosphatase 69 U/L (45-117); Bilirubin, Direct 0.11 mg/dL (0.00-0.30); Cholesterol 194 mg/dL (200); High Density Lipoprotein 48 mg/dL; Protein, Total 6.8 g/dL (6.4-8.2); Triglycerides 126 mg/dL; Very Low Density Lipoprotein 25 mg/dL (5-40)
== END 2022-12-13 18:00 | disposition home or self-care (01) ==
LOC: LAB 07:03
PROVIDERS: Nurse Practitioner Gerontology; Family Provider Nurse Practitioner; PCP Nurse Practitioner Family; Referring Provider Internal Medicine Cardiovascular Disease; Visit Provider Internal Medicine Cardiovascular Disease
DX: Z95.2 Presence of prosthetic heart valve (principal); Z79.01 Long term (current) use of anticoagulants; I10 Essential (primary) hypertension; E03.9 Hypothyroidism, unspecified; Z12.5 Encounter for screening for malignant neoplasm of prostate; E55.9 Vitamin D deficiency, unspecified; Z80.0 Family history of malignant neoplasm of digestive organs
CPT/HCPCS: 36415; 80048; 80061; 80076; 81002; 82306; 84153; 84443; 85025; 85610; G0103

== ENCOUNTER → 2022-12-19 | Outpatient (CLI) | payer OTHER, SELFPAY ==
--- NOTE | 2022-12-19 15:10 | US_ITS ---
ACR Level 3 findings have been noted. An addendum which confirms receipt of the report will follow. INDICATION: thyroid nodule EXAMINATION: US Thyroid (eg thyroid, parathyroid, parotid) TECHNIQUE: Geiger scale and color doppler imaging was performed of the thyroid gland. COMPARISON: None. FINDINGS: RIGHT THYROID LOBE: Measures 4.3 x 1.5 x 1.1 cm. Slightly heterogeneous echotexture with normal vascularity. Multiple benign colloid cysts are present. [One nodule is present: - 0.6 x 0.5 cm solid and cystic mixed echogenicity nodule with indistinct borders and questionable microcalcifications in the inferior pole. LEFT THYROID LOBE: Measures 4 x 1.9 x 1.3 cm. Slightly heterogeneous echotexture with normal vascularity. [Multiple colloid cysts are present. Multiple nodules are also present: -0.5 x 0.4 cm solid and cystic well-circumscribed isoechoic nodule in the midpole -0.6 x 0.6 cm mostly solid mixed echogenicity nodule in the inferior pole with indistinct nodules and with questionable microcalcifications ISTHMUS: Measures 2.2 mm. No thyroid nodules are present. US/Thyroid IMPRESSION: Multinodular thyroid gland: -0.6 cm TR5 right inferior pole solid and cystic nodule with questionable microcalcifications is highly suspicious for malignancy. Recommend FNA. -0.6 cm TR5 left inferior pole solid nodule with questionable microcalcifications is highly suspicious for malignancy. Recommend FNA. -0.5 cm TR3 solid and cystic isoechoic nodule in the left midpole is mildly suspicious. No follow-up for this nodule recommended at this time. Electronically Signed: Griffin Bender MD at 0:01 EDT ,
== END | disposition home or self-care (01) ==
PROVIDERS: PCP Nurse Practitioner Family; Referring Provider Nurse Practitioner Family; Visit Provider Nurse Practitioner Family
DX: E04.1 Nontoxic single thyroid nodule (principal)
CPT/HCPCS: 76536

== ENCOUNTER → 2022-12-27 | Outpatient (CLI) | payer OTHER, SELFPAY ==
[2022-12-27 12:20] LABS: Absolute Lymphocyte Count 1.09 X10^3/uL (0.83-4.51); Absolute Neutrophil Count 4.9 X10^3/uL (2.0-7.7); Basophil# 0.04 X10^3/uL; Basophil% 0.6 % (0-1); Eosinophil# 0.13 X10^3/uL; Eosinophils% 1.9 % (0-5); Hematocrit 42.8 % (40-54); Lymphocyte # 1.09 X10^3/ul (0.83-4.51); Lymphocyte % 16.2 % (19-41); Mean Corp Hgb Conc 32.7 g/dL (32-36); Mean Corpuscular Volume 94.7 fL (80-94); Mean Platelet Vol. 10.2 fl (6.2-12.0); Monocyte# 0.54 X10^3/uL; NRBC Flagged by Analyzer 0 % (0-5); Neutrophil # 4.89 X10^3/uL (2.7-7.7); Neutrophil % 72.9 % (47-70); Platelet Count 179 K/mm3 (150-450); RBC Distribution Width CV 12.8 % (11.6-14.6); RBC Distribution Width SD 44.2 fl (35.1-43.9); Red Blood Count 4.52 M/mm3 (4.6-6.2); White Blood Count 6.7 K/mm3 (4.4-11.0)
[2022-12-27 13:59] LABS: Color, Urine Yellow (Yellow); Glucose, Dipstick Normal (Normal); Ketone-Dipstick Negative (Negative); Leukocyte Esterase-Dipstick Negative /ul (Negative); Nitrite-Dipstick Negative (Negative); Occult Blood-Urine 10 /ul (Negative); Protein-Dipstick Negative (Negative); Specific Gravity, Urine 1.015 (1.002-1.030); Urine Bilirubin Dipstick Negative (Negative); Urine Clarity Clear (Clear); Urine Urobilinogen Normal (Normal)
[2022-12-27 14:11] LABS: Microalbumin,Random Urine 5.5 mg/L (NO RANGE EST.); Microalbumin:Creatinine Ratio 7.6 mg/g CRE (<30 mg/g CRE)
== END | disposition home or self-care (01) ==
LOC: LAB 11:40
PROVIDERS: PCP Nurse Practitioner Family; Referring Provider Nurse Practitioner Family; Visit Provider Nurse Practitioner Family
DX: D72.829 Elevated white blood cell count, unspecified (principal); R31.29 Other microscopic hematuria; R80.9 Proteinuria, unspecified
CPT/HCPCS: 36415; 81002; 82043; 82570; 85025

== ENCOUNTER 2023-01-14 15:58 | Outpatient (RCR) | payer OTHER, SELFPAY ==
[2022-12-19 23:46] VITALS: BMI 29.6
[2023-01-14 17:05] LABS: International Normalized Ratio 2.9; Prothrombin Time (Protime)PT. 30.6 SECONDS (11.7-14.9)
== END 2023-01-14 18:00 | disposition home or self-care (01) ==
LOC: LAB 15:58
PROVIDERS: Family Provider Nurse Practitioner; PCP Nurse Practitioner Family; Referring Provider Internal Medicine Cardiovascular Disease; Visit Provider Internal Medicine Cardiovascular Disease
DX: Z95.2 Presence of prosthetic heart valve (principal); Z79.01 Long term (current) use of anticoagulants
CPT/HCPCS: 36415; 85610

== ENCOUNTER 2023-02-12 13:03 | Outpatient (RCR) | payer OTHER, SELFPAY ==
[2023-01-19 04:47] VITALS: BMI 29.6
[2023-02-12 13:26] LABS: International Normalized Ratio 2.9; Prothrombin Time (Protime)PT. 30.6 SECONDS (11.7-14.9)
== END 2023-02-12 18:00 | disposition home or self-care (01) ==
LOC: LAB 13:03
PROVIDERS: Family Provider Nurse Practitioner; PCP Nurse Practitioner Family; Referring Provider Internal Medicine Cardiovascular Disease; Visit Provider Internal Medicine Cardiovascular Disease
DX: Z95.2 Presence of prosthetic heart valve (principal); Z79.01 Long term (current) use of anticoagulants
CPT/HCPCS: 36415; 85610

== ENCOUNTER 2023-03-18 14:52 | Outpatient (RCR) | payer OTHER, SELFPAY ==
[2023-02-18 22:52] VITALS: BMI 29.6
[2023-03-18 16:15] LABS: Prothrombin Time (Protime)PT. 31.6 SECONDS (11.7-14.9)
== END 2023-03-20 18:00 | disposition home or self-care (01) ==
LOC: LAB 14:52
PROVIDERS: Family Provider Nurse Practitioner; PCP Nurse Practitioner Family; Referring Provider Internal Medicine Cardiovascular Disease; Visit Provider Internal Medicine Cardiovascular Disease
DX: Z95.2 Presence of prosthetic heart valve (principal); Z79.01 Long term (current) use of anticoagulants
CPT/HCPCS: 36415; 85610

== ENCOUNTER 2023-04-18 12:53 | Outpatient (RCR) | payer OTHER, SELFPAY ==
[2023-03-21 04:08] VITALS: BMI 29.6
[2023-04-18 13:58] LABS: International Normalized Ratio 3.4; Prothrombin Time (Protime)PT. 34.7 SECONDS (11.7-14.9)
== END 2023-04-20 18:00 | disposition home or self-care (01) ==
LOC: LAB 12:53
PROVIDERS: Family Provider Nurse Practitioner; PCP Nurse Practitioner Family; Referring Provider Internal Medicine Cardiovascular Disease; Visit Provider Internal Medicine Cardiovascular Disease
DX: Z95.2 Presence of prosthetic heart valve (principal); Z79.01 Long term (current) use of anticoagulants
CPT/HCPCS: 36415; 85610

== ENCOUNTER 2023-05-16 11:38 | Outpatient (RCR) | payer OTHER, SELFPAY ==
[2023-04-20 22:05] VITALS: BMI 29.6
[2023-05-16 12:14] LABS: International Normalized Ratio 2.7; Prothrombin Time (Protime)PT. 29.4 SECONDS (11.7-14.9)
== END 2023-05-16 18:00 | disposition home or self-care (01) ==
LOC: LAB 11:38
PROVIDERS: Family Provider Nurse Practitioner; PCP Nurse Practitioner Family; Referring Provider Internal Medicine Cardiovascular Disease; Visit Provider Internal Medicine Cardiovascular Disease
DX: Z95.2 Presence of prosthetic heart valve (principal); Z79.01 Long term (current) use of anticoagulants
CPT/HCPCS: 36415; 85610

== ENCOUNTER 2023-06-16 07:52 | Outpatient (RCR) | payer OTHER, SELFPAY ==
[2023-05-21 23:02] VITALS: BMI 29.6
[2023-06-16 08:45] LABS: Basophil# 0.05 X10^3/uL; Basophil% 0.7 % (0-1); Eosinophil# 0.22 X10^3/uL; Eosinophils% 2.9 % (0-5); Hematocrit 45.5 % (40-54); Hemoglobin 14.5 g/dL (13.0-16.5); Lymphocyte % 19.9 % (19-41); Mean Corp Hgb Conc 31.9 g/dL (32-36); Mean Corpuscular Hgb 29.6 pg (27.0-32.0); Mean Corpuscular Volume 92.9 fL (80-94); Monocyte# 0.68 X10^3/uL; NRBC Flagged by Analyzer 0 % (0-5); Neutrophil # 5.03 X10^3/uL (2.7-7.7); Neutrophil % 66.8 % (47-70); POSITIVE COUNT YES; RBC Distribution Width CV 12.7 % (11.6-14.6); RBC Distribution Width SD 43.2 fl (35.1-43.9); White Blood Count 7.5 K/mm3 (4.4-11.0)
[2023-06-16 08:56] LABS: International Normalized Ratio 3.1; Prothrombin Time (Protime)PT. 32.1 SECONDS (11.7-14.9)
[2023-06-16 09:29] LABS: Differential Indicated SCAN CRITERIA MET
[2023-06-16 09:30] LABS: Differential Comment SCANNED; Platelet Estimate ADEQUATE (ADEQ)
[2023-06-16 09:54] LABS: ALB/GLOB Ratio 1.2 RATIO (0.9-2.4); AST(SGOT) 29 U/L (15-37); Alanine Aminotransfer ALT/SGPT 33 U/L (16-61); Albumin, Serum 3.8 g/dL (3.2-5.0); Alkaline Phosphatase 71 U/L (45-117); Anion Gap 7 (5-15); BUN 18 mg/dL (7-18); BUN/Creat Ratio 15.1 RATIO (10-20); Bilirubin, Direct 0.14 mg/dL (0.00-0.30); Calcium,Total 9.2 mg/dL (8.5-10.1); Chloride 112 mmol/L (98-107); Cholesterol 229 mg/dL (200); Creatinine, Serum 1.19 mg/dL (0.70-1.30); EST Glomerular Filtration Rate 66 mL/min (>60); Est Glom Filt Rate - Afr Amer 79 mL/min (>60); Globulin 3.1 g/dL (2.2-4.2); Glucose 98 mg/dL (74-106); High Density Lipoprotein 39 mg/dL; Potassium 4.1 mmol/L (3.5-5.1); Protein, Total 6.9 g/dL (6.4-8.2); Sodium Level 142 mmol/L (136-145); Thyroid Stim Hormone (TSH) 3.25 uIU/mL (0.358-3.74); Triglycerides 230 mg/dL; Very Low Density Lipoprotein 46 mg/dL (5-40)
== END 2023-06-19 18:00 | disposition home or self-care (01) ==
LOC: LAB 07:52
PROVIDERS: Nurse Practitioner Gerontology; Family Provider Nurse Practitioner; PCP Nurse Practitioner Family; Referring Provider Internal Medicine Cardiovascular Disease; Visit Provider Internal Medicine Cardiovascular Disease
DX: Z95.2 Presence of prosthetic heart valve (principal); Z79.01 Long term (current) use of anticoagulants; E78.2 Mixed hyperlipidemia; I10 Essential (primary) hypertension
CPT/HCPCS: 36415; 80053; 80061; 82248; 84443; 85025; 85610

== ENCOUNTER 2023-07-15 12:35 | Outpatient (RCR) | payer OTHER, SELFPAY ==
[2023-06-20 02:50] VITALS: BMI 29.6
[2023-07-15 14:02] LABS: Prothrombin Time (Protime)PT. 39.1 SECONDS (11.7-14.9)
[2023-07-15 14:06] LABS: International Normalized Ratio 4.1
== END 2023-07-20 01:33 | disposition home or self-care (01) ==
LOC: LAB 12:35
PROVIDERS: Family Provider Nurse Practitioner; PCP Nurse Practitioner Family; Referring Provider Internal Medicine Cardiovascular Disease; Visit Provider Internal Medicine Cardiovascular Disease
DX: Z95.2 Presence of prosthetic heart valve (principal); Z79.01 Long term (current) use of anticoagulants
CPT/HCPCS: 36415; 85610

== ENCOUNTER 2023-08-07 11:13 | Outpatient (RCR) | payer OTHER, SELFPAY ==
[2023-07-20 01:33] VITALS: BMI 29.6
[2023-07-22 10:26] LABS: International Normalized Ratio 2.7; Prothrombin Time (Protime)PT. 28.7 SECONDS (11.7-14.9)
[2023-08-07 11:51] LABS: International Normalized Ratio 2.2; Prothrombin Time (Protime)PT. 24.7 SECONDS (11.7-14.9)
== END 2023-08-19 22:42 | disposition home or self-care (01) ==
LOC: LAB 11:13
PROVIDERS: Family Provider Nurse Practitioner; PCP Nurse Practitioner Family; Referring Provider Internal Medicine Cardiovascular Disease; Visit Provider Internal Medicine Cardiovascular Disease
DX: Z95.2 Presence of prosthetic heart valve (principal); Z79.01 Long term (current) use of anticoagulants
CPT/HCPCS: 36415; 85610

== ENCOUNTER 2023-09-03 10:44 | Outpatient (RCR) | payer OTHER, SELFPAY ==
[2023-08-19 22:42] VITALS: BMI 29.6
[2023-08-20 13:07] LABS: International Normalized Ratio 2.5; Prothrombin Time (Protime)PT. 26.5 SECONDS (11.7-14.9)
[2023-08-20 13:32] LABS: AST(SGOT) 35 U/L (15-37); Alanine Aminotransfer ALT/SGPT 37 U/L (16-61); Alkaline Phosphatase 74 U/L (45-117); Bilirubin, Direct 0.16 mg/dL (0.00-0.30); Cholesterol 182 mg/dL (200); Globulin 3.2 g/dL (2.2-4.2); High Density Lipoprotein 43 mg/dL; Protein, Total 7.2 g/dL (6.4-8.2); Triglycerides 170 mg/dL; Very Low Density Lipoprotein 34 mg/dL (5-40)
[2023-09-03 11:30] LABS: International Normalized Ratio 3.3; Prothrombin Time (Protime)PT. 33.4 SECONDS (11.7-14.9)
== END 2023-09-03 18:00 | disposition home or self-care (01) ==
LOC: LAB 10:44
PROVIDERS: Nurse Practitioner Gerontology; Family Provider Nurse Practitioner; PCP Nurse Practitioner Family; Referring Provider Internal Medicine Cardiovascular Disease; Visit Provider Internal Medicine Cardiovascular Disease
DX: Z95.2 Presence of prosthetic heart valve (principal); Z79.01 Long term (current) use of anticoagulants; E78.2 Mixed hyperlipidemia
CPT/HCPCS: 36415; 80061; 80076; 85610

== ENCOUNTER 2023-10-17 13:17 | Outpatient (RCR) | payer OTHER, SELFPAY ==
[2023-09-22 08:55] VITALS: BMI 29.6
[2023-09-23 16:36] LABS: Prothrombin Time (Protime)PT. 38.7 SECONDS (11.7-14.9)
[2023-09-30 13:39] LABS: International Normalized Ratio 3.2; Prothrombin Time (Protime)PT. 32.9 SECONDS (11.7-14.9)
[2023-10-10 14:08] LABS: Prothrombin Time (Protime)PT. 41.4 SECONDS (11.7-14.9)
[2023-10-10 14:11] LABS: International Normalized Ratio 4.4
[2023-10-17 13:41] LABS: International Normalized Ratio 2.6; Prothrombin Time (Protime)PT. 27.6 SECONDS (11.7-14.9)
== END 2023-10-17 18:00 | disposition home or self-care (01) ==
LOC: LAB 13:17
PROVIDERS: Family Provider Nurse Practitioner; PCP Nurse Practitioner Family; Referring Provider Internal Medicine Cardiovascular Disease; Visit Provider Internal Medicine Cardiovascular Disease
DX: Z95.2 Presence of prosthetic heart valve (principal); Z79.01 Long term (current) use of anticoagulants
CPT/HCPCS: 36415; 85610

== ENCOUNTER 2023-11-06 12:47 | Outpatient (RCR) | payer OTHER, SELFPAY ==
[2023-10-20 04:10] VITALS: BMI 29.6
[2023-11-06 13:23] LABS: International Normalized Ratio 2.1; Prothrombin Time (Protime)PT. 23.3 SECONDS (11.7-14.9)
== END 2023-11-19 18:00 | disposition home or self-care (01) ==
LOC: LAB 12:47
PROVIDERS: Family Provider Nurse Practitioner; PCP Nurse Practitioner Family; Referring Provider Internal Medicine Cardiovascular Disease; Visit Provider Internal Medicine Cardiovascular Disease
DX: Z95.2 Presence of prosthetic heart valve (principal); Z79.01 Long term (current) use of anticoagulants
CPT/HCPCS: 36415; 85610

== ENCOUNTER 2023-12-05 11:17 | Outpatient (RCR) | payer OTHER, SELFPAY ==
[2023-11-19 23:06] VITALS: BMI 29.6
[2023-11-21 11:24] LABS: International Normalized Ratio 3.2; Prothrombin Time (Protime)PT. 32.8 SECONDS (11.7-14.9)
[2023-12-05 11:47] LABS: Prothrombin Time (Protime)PT. 30.9 SECONDS (11.7-14.9)
== END 2023-12-05 18:00 | disposition home or self-care (01) ==
LOC: LAB 11:17
PROVIDERS: Family Provider Nurse Practitioner; PCP Nurse Practitioner Family; Referring Provider Internal Medicine Cardiovascular Disease; Visit Provider Internal Medicine Cardiovascular Disease
DX: Z95.2 Presence of prosthetic heart valve (principal); Z79.01 Long term (current) use of anticoagulants
CPT/HCPCS: 36415; 85610

== ENCOUNTER → 2023-12-17 | Outpatient (CLI) | payer OTHER, SELFPAY ==
--- NOTE | 2023-12-17 11:17 | US_ITS ---
STUDY: THYROID ULTRASOUND REASON FOR EXAM: Male, 63 years old. THYROID ULTRASOUND (73756) : repeat (reassess nodules) -- Multiple thyroid nodules TECHNIQUE: Ultrasound evaluation of the thyroid was performed with real-time and static ramos-scale imaging. COMPARISON: Comparison is made with prior examination dated December 19, 2022. FINDINGS: RIGHT LOBE: The right lobe of the thyroid gland measures 4.5 cm x 1.6 cm x 1.2 cm. There is a homogeneous echotexture. There is a 5 mm x 4 mm x 2 mm cyst in the upper midportion of the right lobe. Adjacent to this, there is a 6 mm x 5 mm x 4 mm cyst. There is also evidence of a 5 mm x 5 mm x 4 mm well-defined hypoechoic solid nodule. This is unchanged. LEFT LOBE: The left lobe of the thyroid gland measures 4.3 cm x 2 cm x 1.2 cm. There is a homogeneous echotexture. There is a 1.3 cm x 0.9 cm x 0.6 cm cyst with debris in the upper pole. There is also evidence of a 6 mm x 5 mm x 3 mm cyst in the midportion. There is a stable 4 mm x 5 mm x 3 mm well-defined hypoechoic solid nodule in the inferior pole. ISTHMUS: The isthmus measures 3 cm. The regional lymph nodes are normal. US/Head/Neck Soft Tissue IMPRESSION: Essentially stable examination. Twelve-month follow-up recommended. Electronically Signed: Connor Haider MD at 11:09 EDT ,
== END | disposition home or self-care (01) ==
LOC: US 11:16
PROVIDERS: PCP Nurse Practitioner Family; Referring Provider Nurse Practitioner Family; Visit Provider Nurse Practitioner Family
DX: E04.2 Nontoxic multinodular goiter (principal)
CPT/HCPCS: 76536

== ENCOUNTER 2023-12-26 11:32 | Outpatient (RCR) | payer OTHER, SELFPAY ==
[2023-12-21 03:07] VITALS: BMI 29.6
[2023-12-26 12:25] LABS: International Normalized Ratio 2.7; Prothrombin Time (Protime)PT. 28.5 SECONDS (11.7-14.9)
== END 2023-12-26 18:00 | disposition home or self-care (01) ==
LOC: LAB 11:32
PROVIDERS: PCP Nurse Practitioner Family; Referring Provider Internal Medicine Cardiovascular Disease; Visit Provider Internal Medicine Cardiovascular Disease
DX: Z95.2 Presence of prosthetic heart valve (principal); Z79.01 Long term (current) use of anticoagulants; I48.0 Paroxysmal atrial fibrillation
CPT/HCPCS: 36415; 85610

== ENCOUNTER → 2023-12-29 | Outpatient (CLI) | payer OTHER, SELFPAY ==
[2023-12-29 12:17] LABS: Absolute Lymphocyte Count 1.34 X10^3/uL (0.83-4.51); Absolute Neutrophil Count 4.6 X10^3/uL (2.0-7.7); Basophil# 0.06 X10^3/uL; Basophil% 0.9 % (0-1); Eosinophil# 0.26 X10^3/uL; Eosinophils% 3.8 % (0-5); Hematocrit 44.1 % (40-54); Hemoglobin 14.1 g/dL (13.0-16.5); Lymphocyte # 1.34 X10^3/ul (0.83-4.51); Lymphocyte % 19.5 % (19-41); Mean Corpuscular Hgb 30.3 pg (27.0-32.0); Mean Corpuscular Volume 94.6 fL (80-94); Mean Platelet Vol. 11.4 fl (6.2-12.0); Monocyte# 0.57 X10^3/uL; Monocyte% 8.3 % (0-10); NRBC Flagged by Analyzer 0 % (0-5); Neutrophil # 4.59 X10^3/uL (2.7-7.7); Neutrophil % 66.9 % (47-70); POSITIVE COUNT YES; RBC Distribution Width CV 12.7 % (11.6-14.6); RBC Distribution Width SD 43.8 fl (35.1-43.9); Red Blood Count 4.66 M/mm3 (4.6-6.2); White Blood Count 6.9 K/mm3 (4.4-11.0)
[2023-12-29 12:53] LABS: Differential Indicated SCAN CRITERIA MET; PSA,Total- Diagnostic 2.88 ng/mL (0.0-4.0)
[2023-12-29 12:56] LABS: Platelet Estimate SLT DEC (ADEQ)
== END | disposition home or self-care (01) ==
PROVIDERS: PCP Nurse Practitioner Family; Referring Provider Nurse Practitioner Family; Visit Provider Nurse Practitioner Family
DX: N40.0 Benign prostatic hyperplasia without lower urinary tract symptoms (principal); D69.6 Thrombocytopenia, unspecified
CPT/HCPCS: 36415; 84153; 85025

== ENCOUNTER → 2024-01-21 | Outpatient (CLI) | payer OTHER, SELFPAY ==
--- NOTE | 2024-01-21 10:33 | CT_ITS ---
STUDY: CT BRAIN WITH AND WITHOUT CONTRAST REASON FOR EXAM: Male, 63 years old. New onset of headaches after age 50 and rule out bleed/mass RADIATION DOSAGE (If Supplied By Facility): CTDIvol = ( 44.99 ) mGy, DLP = ( 1580.97 ) mGycm TECHNIQUE: Transaxial CT imaging of the brain was performed pre and post contrast administration. The examination was performed with intravenous administration of IV 50mL Isovue-300. Individualized dose optimization techniques were used for this CT. COMPARISON: None. FINDINGS: Normal soft tissue structures. Normal calvarium. Normal size ventricles and extra-axial spaces for the patient''s age. Normal white matter tracts of the cerebral hemispheres. Normal basal ganglia and thalami. Normal brainstem. Normal cerebellum. There is no intracranial hemorrhage. There are no findings of an acute ischemic infarction. Normal visualized paranasal sinuses. CT/Brain/Head W/WO Contrast IMPRESSION: Normal unenhanced and enhanced CT scan of the brain. Electronically Signed: Connor Haider MD at 11:32 EDT ,
[2024-01-21 11:02] LABS: CREATININE FINGERSTICK < 1.0 mg/dL (0.70-1.30); EGFR FINGERSTICK > 60.0000 mL/min (>60)
== END | disposition home or self-care (01) ==
LOC: CT 10:25
PROVIDERS: PCP Nurse Practitioner Family; Referring Provider Nurse Practitioner Family; Visit Provider Nurse Practitioner Family
DX: R51.9 Headache, unspecified (principal)
CPT/HCPCS: 70470; Q9967

== ENCOUNTER 2024-02-10 10:34 | Outpatient (RCR) | payer OTHER, SELFPAY ==
[2024-01-20 04:43] VITALS: BMI 29.6
[2024-01-20 15:44] LABS: International Normalized Ratio 3.4; Prothrombin Time (Protime)PT. 34.2 SECONDS (11.7-14.9)
[2024-02-10 11:05] LABS: International Normalized Ratio 3.4; Prothrombin Time (Protime)PT. 34.2 SECONDS (11.7-14.9)
== END 2024-02-10 18:00 | disposition home or self-care (01) ==
LOC: LAB 10:34
PROVIDERS: PCP Nurse Practitioner Family; Referring Provider Internal Medicine Cardiovascular Disease; Visit Provider Internal Medicine Cardiovascular Disease
DX: Z95.2 Presence of prosthetic heart valve (principal); Z79.01 Long term (current) use of anticoagulants; I48.0 Paroxysmal atrial fibrillation
CPT/HCPCS: 36415; 85610

== ENCOUNTER 2024-03-09 06:50 | Outpatient (RCR) | payer OTHER, SELFPAY ==
[2024-02-19 21:25] VITALS: BMI 29.6
[2024-03-09 08:20] LABS: AST(SGOT) 25 U/L (15-37); Alanine Aminotransfer ALT/SGPT 33 U/L (16-61); Albumin, Serum 3.9 g/dL (3.2-5.0); Alkaline Phosphatase 79 U/L (45-117); Bilirubin, Direct 0.14 mg/dL (0.00-0.30); Cholesterol 168 mg/dL (200); Globulin 2.9 g/dL (2.2-4.2); High Density Lipoprotein 40 mg/dL; Protein, Total 6.8 g/dL (6.4-8.2); Triglycerides 169 mg/dL; Very Low Density Lipoprotein 34 mg/dL (5-40)
[2024-03-09 08:51] LABS: International Normalized Ratio 3.1; Prothrombin Time (Protime)PT. 31.7 SECONDS (11.7-14.9)
== END 2024-03-20 18:00 | disposition home or self-care (01) ==
LOC: LAB 06:50
PROVIDERS: Nurse Practitioner Gerontology; PCP Nurse Practitioner Family; Referring Provider Internal Medicine Cardiovascular Disease; Visit Provider Internal Medicine Cardiovascular Disease
DX: Z95.2 Presence of prosthetic heart valve (principal); Z79.01 Long term (current) use of anticoagulants; E78.2 Mixed hyperlipidemia; I48.0 Paroxysmal atrial fibrillation
CPT/HCPCS: 36415; 80061; 80076; 85610

== ENCOUNTER 2024-04-06 08:44 | Outpatient (RCR) | payer OTHER, SELFPAY ==
[2024-03-21 01:41] VITALS: BMI 29.6
[2024-04-06 09:10] LABS: International Normalized Ratio 3.4; Prothrombin Time (Protime)PT. 34.2 SECONDS (11.7-14.9)
== END 2024-04-06 18:00 | disposition home or self-care (01) ==
LOC: LAB 08:44
PROVIDERS: PCP Nurse Practitioner Family; Referring Provider Internal Medicine Cardiovascular Disease; Visit Provider Internal Medicine Cardiovascular Disease
DX: Z95.2 Presence of prosthetic heart valve (principal); Z79.01 Long term (current) use of anticoagulants; E78.2 Mixed hyperlipidemia

== ENCOUNTER 2024-05-17 09:32 | Outpatient (RCR) | payer OTHER, SELFPAY ==
[2024-04-21 04:54] VITALS: BMI 29.6
[2024-05-04 11:51] LABS: International Normalized Ratio 2.4; Prothrombin Time (Protime)PT. 26.8 SECONDS (11.7-14.9)
[2024-05-17 10:59] LABS: International Normalized Ratio 3.4; Prothrombin Time (Protime)PT. 34.9 SECONDS (11.7-14.9)
== END 2024-05-17 18:00 | disposition home or self-care (01) ==
LOC: LAB 09:32
PROVIDERS: PCP Nurse Practitioner Family; Referring Provider Internal Medicine Cardiovascular Disease; Visit Provider Internal Medicine Cardiovascular Disease
DX: Z95.2 Presence of prosthetic heart valve (principal); Z79.01 Long term (current) use of anticoagulants; I48.0 Paroxysmal atrial fibrillation
CPT/HCPCS: 36415; 85610

== ENCOUNTER → 2024-05-17 | Outpatient (CLI) | payer OTHER, SELFPAY ==
--- NOTE | 2024-05-17 08:46 | ECHOD_ITS ---
Reason For Study: Prosthetic heart valve Procedure This was a 2D Doppler, Color Flow transthoracic echocardiogram. Exam performed in department. Left Ventricle Normal LV size. Left ventricular systolic function is lower limits of normal. The left ventricular ejection fraction is 50 %. No regional wall motion abnormalities noted. Right Ventricle Normal RV size. Normal systolic function. Atria Normal left atrium. Normal right atrium. Mitral Valve Bileaflet diffuse mitral valve thickening. Tricuspid Valve Normal tricuspid valve. Aortic Valve Peak aortic valve gradient 14 mmHg. Mean aortic valve gradient 6 mmHg. Stable appearing mechanical aortic valve apparatus. Great Vessels Normal aortic root. The pulmonary artery is normal size. Pericardium/Pleural No pericardial effusion. MMode/2D Measurements & Calculations LVIDd: 5.2 cm IVSd: 1.3 cm Ao root diam: 3.2 cm LVIDs: 3.7 cm LVPWd: 1.2 cm RVDd: 3.8 cm FS: 28.9 % LAV(MOD-bp): 42.5 ml LVAd ap4: 40.6 cm2 SV(MOD-sp4): 69.1 ml LAV(MOD-bp) Indexed: 21.5 ml/m2 LVLd ap4: 9.8 cm SI(MOD-sp4): 34.9 ml/m2 LAV(MOD-sp2): 46.3 ml EDV(MOD-sp4): 143.0 ml LAV(MOD-sp4): 38.6 ml EDV(sp4-el): 143.5 ml LVAs ap4: 26.9 cm2 LVLs ap4: 8.5 cm ESV(MOD-sp4): 73.9 ml ESV(sp4-el): 72.2 ml EF(MOD-sp4): 48.3 % EF(sp4-el): 49.7 % SV(sp4-el): 71.2 ml LA dimension(2D): 3.2 cm LA A4 area: 16.0 cm2 RA A4 area: 13.2 cm2 Time Measurements MV dec time: 0.26 sec Doppler Measurements & Calculations MV E max jamil: 62.6 cm/sec Lat Peak E' Jamil: 9.7 cm/sec Med Peak E' Jamil: 8.2 cm/sec MV A max jamil: 38.1 cm/sec E/E' lat: 6.5 E/E' med: 7.6 MV E/A: 1.6 MV V2 max: 63.7 cm/sec Ao V2 max: 185.6 cm/sec MV max P.6 mmHg MV dec slope: 241.3 cm/sec2 Ao max P.8 mmHg MV V2 mean: 38.4 cm/sec Ao V2 mean: 110.0 cm/sec MV mean P.68 mmHg Ao mean P.0 mmHg MV V2 VTI: 34.7 cm Ao V2 VTI: 44.8 cm AV (velocity ratio): 0.91 LV V1 max: 150.7 cm/sec PA V2 max: 87.8 cm/sec PI end-d jamil: 67.4 cm/sec LV V1 max P.1 mmHg PA V2 mean: 60.6 cm/sec LV V1 mean P.7 mmHg LV V1 mean: 96.6 cm/sec LV V1 VTI: 40.7 cm ECHO/Echo Complete Interpretation Summary Normal LV size. Left ventricular systolic function is lower limits of normal. Bileaflet diffuse mitral valve thickening. The left ventricular ejection fraction is 50 %. Mean aortic valve gradient 6 mmHg. Stable appearing mechanical aortic valve apparatus. Ordering Physician: Rad Salamanca Referring Physician: Rad Salamanca Performed By: Blaire Max RCS
== END | disposition home or self-care (01) ==
PROVIDERS: PCP Nurse Practitioner Family; Referring Provider Internal Medicine Cardiovascular Disease; Visit Provider Internal Medicine Cardiovascular Disease
DX: Z95.2 Presence of prosthetic heart valve (principal)
CPT/HCPCS: 93306

== ENCOUNTER 2024-06-08 09:54 | Outpatient (RCR) | payer OTHER, SELFPAY ==
[2024-05-21 21:31] VITALS: BMI 29.6
[2024-06-08 10:27] LABS: International Normalized Ratio 2.9; Prothrombin Time (Protime)PT. 31.3 SECONDS (11.7-14.9)
== END 2024-06-18 18:00 | disposition home or self-care (01) ==
LOC: LAB 09:54
PROVIDERS: PCP Nurse Practitioner Family; Referring Provider Internal Medicine Cardiovascular Disease; Visit Provider Internal Medicine Cardiovascular Disease
DX: Z95.2 Presence of prosthetic heart valve (principal); Z79.01 Long term (current) use of anticoagulants; E78.2 Mixed hyperlipidemia
CPT/HCPCS: 36415; 85610

== ENCOUNTER 2024-06-25 12:11 | Emergency (ER) | payer OTHER, SELFPAY ==
[2024-06-25 12:12] VITALS: BP 200/85; PULSE 51; RESP 16; TEMP 36.4; O2SAT 98; BMI 29.6
--- NOTE | 2024-06-25 12:14 | RAD_ITS ---
PROCEDURE: CHEST 1 VIEW (PORTABLE) REASON FOR EXAM: Chest pain. One-week history of hypertension. TECHNIQUE: Frontal view of the chest. COMPARISON: Comparison is made with prior study dated May 28, 2021. FINDINGS: EKG electrodes are seen. The patient is status post midline sternotomy and mitral valve replacement. Tortuosity of the descending thoracic aorta. Lungs are clear. Degenerative changes of the thoracic vertebrae. RAD/Chest 1 View (Portable) IMPRESSION: Status post midline sternotomy and mitral valve replacement. No acute abnormal ity is seen. Reading Location: [id number]
[2024-06-25 13:08] LABS: Absolute Lymphocyte Count 1.21 X10^3/uL (0.83-4.51); Absolute Neutrophil Count 4.5 X10^3/uL (2.0-7.7); Basophil# 0.06 X10^3/uL; Basophil% 0.9 % (0-1); Eosinophils% 5.8 % (0-5); Hematocrit 44.4 % (40-54); Hemoglobin 14.5 g/dL (13.0-16.5); Lymphocyte # 1.21 X10^3/ul (0.83-4.51); Lymphocyte % 17.7 % (19-41); Mean Corp Hgb Conc 32.7 g/dL (32-36); Mean Corpuscular Hgb 30.1 pg (27.0-32.0); Mean Corpuscular Volume 92.1 fL (80-94); Mean Platelet Vol. 10.1 fl (6.2-12.0); Monocyte# 0.63 X10^3/uL; Monocyte% 9.2 % (0-10); NRBC Flagged by Analyzer 0 % (0-5); Neutrophil % 65.8 % (47-70); Platelet Count 197 K/mm3 (150-450); RBC Distribution Width CV 12.6 % (11.6-14.6); RBC Distribution Width SD 42.6 fl (35.1-43.9); Red Blood Count 4.82 M/mm3 (4.6-6.2); White Blood Count 6.8 K/mm3 (4.4-11.0)
[2024-06-25 14:11] VITALS: BP 153/72; PULSE 52; RESP 15; O2SAT 97
--- NOTE | 2024-06-25 14:18 | EX.ED.DYSGE1 ---
HPI History of Present Illness Chief Complaint: Hypertension Informant: patient and spouse/S.O. Narrative Narrative: Presents for evaluation elevated blood pressure. Patient follow-up with PCP this past Friday 6 blood pressure systolic 170s over 60, he is told to monitor it. He has been take his medications metoprolol 25 mg twice a day and ramipril 10 mg at night. Typical blood pressure systolic 120s over 60s. States been checking it throughout the week's been 150s 160s. Stated elevated, he tried calling his cardiology office was unable to get through, therefore came here for evaluation. No headache chest pains abdominal pain nausea vomiting. States throughout the week did have left upper arm pain. No injuries. No current symptoms. History of mechanical valve in his heart on warfarin. Denies any changes in his medications or his diet. Denies any [id number] medications. However while in the ED reported cardiology office called him back relayed to him to increase his ramipril to 20 mg. He takes it typically around 7 PM. 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 HLD (hyperlipidemia) Palpitations Bradycardia Home Medications ?Medication ?Instructions ?Recorded ?Last Taken ?Type ascorbic acid (vitamin C) 1,000 mg 1 g PO DAILY 07/09/22 Unknown History tablet cholecalciferol (vitamin D3) 25 25 mcg PO DAILY 07/09/22 Unknown History mcg (1,000 unit) tablet omega-3 fatty acids 1,000 mg 2,000 mg PO DAILY 07/09/22 Unknown History capsule vitamin B complex 1 tab PO DAILY 07/09/22 Unknown History warfarin 5 mg tablet 5 mg PO .COMPLEX BLOOD THINNER #90 06/03/23 Unknown Rx tabs ezetimibe 10 mg tablet (Zetia) 10 mg PO DAILY #90 tabs 07/10/23 Unknown Rx metoprolol tartrate 25 mg tablet 25 mg PO BID #135 tabs 01/29/24 Unknown Rx ramipril 10 mg capsule 10 mg PO BID #180 caps 06/25/24 Unknown Rx warfarin 4 mg tablet 4 mg PO .COMPLEX 06/25/24 Unknown History Allergy/AdvReac Type Severity Reaction Status Date / Time No Known Allergies Allergy Verified 06/25/24 12:13 Family History Father Hypertension Mother Afib Hypertension Sister Myocardial infarction, Onset Age: 40 Surgical History History of left heart catheterization (10/01/21) History of AAA (abdominal aortic aneurysm) repair History of right and left heart catheterization (01/2004) History of aortic valve replacement (02/29/04) Social History Smoking Status: Never smoker alcohol intake: current alcohol intake frequency: a few times a month Alcohol type: wine substance use type: does not use caffeine: Yes Type: coffee Number of servings: 1 what type of physical activity do you participate in: none seatbelt use: always do you feel safe at home: Yes ROS ROS ED Constitutional Constitutional ED: Denies chills, fever(s) or sweats ENT ENT ED: Denies sore throat Cardiovascular Cardiovascular: Denies chest pain, leg edema, palpitations or racing heartbeat Respiratory/Chest Respiratory/Chest: Denies cough, dyspnea or dyspnea on exertion Gastrointestinal Gastrointestinal: Denies abdominal pain, diarrhea, nausea or vomiting Genitourinary Genitourinary ED: Denies dysuria, hematuria or urinary frequency Musculoskeletal Musculoskeletal: Denies back pain, extremity pain or neck pain Integumentary Denies rash or wounds Neurologic Neurologic: Denies headache(s), paresthesias or weakness EXAM Physical Exam Const Vital Signs: 06/25/24 12:12 06/25/24 14:11 06/25/24 14:26 Temperature 97.6 F L Temperature Source Temporal Pulse Rate 51 L 52 L Respiratory Rate 16 15 Respiratory Effort Respiratory Pattern Blood Pressure 200/85 H 153/72 H Blood Pressure Mean 123 99 Pulse Ox 98 97 Oxygen Delivery Method Room Air Room Air Room Air 06/25/24 14:29 Temperature Temperature Source Pulse Rate Respiratory Rate Respiratory Effort Normal Non-Labored Respiratory Pattern Normal Blood Pressure Blood Pressure Mean Pulse Ox Oxygen Delivery Method Positive well nourished and well developed General Appearance ED: well developed and NAD HEENT Reports moist mucous membranes normocephalic and atraumatic Eyes General Eye ED: Yes normal appearance of both eyes Neck full ROM Chest Wall Chest: Negative for tenderness Resp normal respiratory effort and normal air movement Effort and Inspection: symmetric chest movement; Negative for respiratory distress Cardio regular rate and regular rhythm Peripheral Pulses: pulses 2+ throughout GI normal to inspection, nondistended, normoactive bowel sounds and non-tender Palpation: Negative for guarding or rebound tenderness present Extremity normal to inspection General Extremety ED: Negative for edema or tenderness General Extremity: Negative for edema Neuro oriented x3 and no sensory deficits noted Sensorium / Orientation: awake and alert Skin no rashes or lesions noted and no wounds MDM MDM MDM Narrative Medical decision making narrative: Interventions / MDM: Differential diagnosis: Elevated blood pressure history of hypertension Diagnosis considered but do not suspect: No clinical hypertensive emergency. ACS however EKG cardiac labs negative. My EKG interpretation: Sinus rate of 47, no ST or T wave changes. Imaging independently reviewed and interpreted by myself: 1 view chest x-ray: No acute process, sternotomy wires noted. External documents reviewed: N/A Test considered but not ordered:N/A ED course: Patient presented asymptomatic elevated blood pressure. At home 170s on arrival 200/85 in the room is 160/71. EKG sinus bradycardia no heart block he is on metoprolol. Labs are pending from nursing protocol. Add an INR. Chest x-ray negative. This time will dose his ramipril 20 mg little earlier than his typical 7 PM. He did had transient left arm pain throughout the week. Cardiac enzymes pending. Will reevaluate. 1518: INR therapeutic 2.6. Troponin negative. Creatinine 1.1. Potassium 4.5. Blood pressure 153/72. 1600: Repeat troponin negative per algorithm. Blood pressure remained stable. Will keep a log of his blood pressure in the morning at night. He will follow-up with cardiology team. All questions were answered. Re-evaluation: stable Disposition discussed with patient/family/significant other: Patient and significant other. Case discussed with consulting clinician: N/A This note was generated with [employer] dictation software. It may contain incorrect words, spelling, and punctuation that were not noted in checking the note before signing. Lab Data Attestation: I reviewed the patient's lab results. Labs: Laboratory Results - last 24 hr 06/25/24 06/25/24 06/25/24 13:03 14:20 15:03 WBC 6.8 RBC 4.82 Hgb 14.5 Hct 44.4 MCV 92.1 MCH 30.1 MCHC 32.7 RDW Std Deviation 42.6 RDW Coeff of Terrance 12.6 Plt Count 197 MPV 10.1 Immature Gran % (Auto) 0.600 Neut % (Auto) 65.8 Lymph % (Auto) 17.7 L [place] % (Auto) 9.2 Eos % (Auto) 5.8 H Baso % (Auto) 0.9 Absolute Neuts (auto) 4.5 Absolute Lymphs (auto) 1.21 Nucleated RBC % 0 PT 28.4 H INR 2.6 Sodium 142 Potassium 4.5 Chloride 105 Carbon Dioxide 24.2 Anion Gap 13 BUN 10 Creatinine 1.11 Estim Creat Clear Calc 72.67 Est GFR (MDRD) Non-Af 74 BUN/Creatinine Ratio 9.0 L Glucose 93 Calcium 9.6 Troponin T High Sens 9 Troponin T Hi Sens 2 Hr Cancelled 11 Radiography Diagnostic Testing: Clinical Impression(s) from Imaging Studies Chest X-Ray 06/25/24 12:14 IMPRESSION: Status post midline sternotomy and mitral valve replacement. No acute abnormality is seen. Reading Location: [id number] Discharge Plan Triage Chief Complaint: Hypertension ED Provider: Jonny Diaz Dx/Rx/DC Orders Clinical Impression: Essential hypertension, Chronic anticoagulation, History of aortic valve replacement Instructions: ED Hypertension, Established Prescriptions: No Action vitamin B complex Tablet 1 tab PO DAILY ascorbic acid (vitamin C) 1,000 mg tablet 1 g PO DAILY cholecalciferol (vitamin D3) 25 mcg (1,000 unit) tablet 25 mcg PO DAILY omega-3 fatty acids 1,000 mg capsule 2,000 mg PO DAILY warfarin 4 mg tablet 4 mg PO .COMPLEX Protocol: Dose Management Condition: Friday Dose/Route: 2.5 mg Instruction: 0.5 x 5 mg tablets Condition: Friday Dose/Route: 5 mg Instruction: 1 x 5 mg tablet Condition: Friday Dose/Route: 5 mg Instruction: 1 x 5 mg tablet Condition: Friday Dose/Route: 5 mg Instruction: 1 x 5 mg tablet Condition: Dose/Route: 5 mg Instruction: 1 x 5 mg tablet Condition: Friday Dose/Route: 5 mg Instruction: 1 x 5 mg tablet Condition: Friday Dose/Route: 5 mg Instruction: 1 x 5 mg tablet Protocol Text: Adjustment Start Date: Friday06/08/24 INR Value: 2.9 INR Date: 06/08/24 Recheck Date: 07/08/24 Rx Instructions: take 2.5 tablets (6mg) on Sun (takes a 5 mg tablet fri thrfri) warfarin 5 mg tablet 5 mg PO .COMPLEX Qty: 90 3RF Protocol: Dose Management Condition: Friday Dose/Route: 2.5 mg Instruction: 0.5 x 5 mg tablets Condition: Friday Dose/Route: 5 mg Instruction: 1 x 5 mg tablet Condition: Friday Dose/Route: 5 mg Instruction: 1 x 5 mg tablet Condition: Friday Dose/Route: 5 mg Instruction: 1 x 5 mg tablet Condition: Dose/Route: 5 mg Instruction: 1 x 5 mg tablet Condition: Friday Dose/Route: 5 mg Instruction: 1 x 5 mg tablet Condition: Friday Dose/Route: 5 mg Instruction: 1 x 5 mg tablet Protocol Text: Adjustment Start Date: Friday06/08/24 INR Value: 2.9 INR Date: 06/08/24 Recheck Date: 07/08/24 Rx Instructions: 5 mg orally daily Friday through Friday: (takes 1 and 1/2 of a 4mg tablet to = 6mg on Sat and Sun), or as directed; ezetimibe [Zetia] 10 mg tablet 10 mg PO DAILY Qty: 90 3RF metoprolol tartrate 25 mg tablet 25 mg PO BID Qty: 135 3RF ramipril 10 mg capsule 10 mg PO BID Qty: 180 3RF Primary Care Provider: Candelaria Durham Referrals: Rad Salamanca MD [Med Staff - Active Staff] - 1-2 Weeks Candelaria Durham [employer] [Primary Care Provider] - Activity Restrictions/Additional Instructions: Blood pressure elevated on arrival. You are given the recommended 20 mg ramipril early. Continue your metoprolol and ramipril at 20 mg. Keep a log your blood pressure in the morning when you wake up and before bedtime. Follow-up with cardiology office. Labs are all stable. Heart enzymes negative. Print Language: Cypriot Disposition Disposition: Home, Self Care
[2024-06-25 14:35] LABS: Anion Gap 13 (5-15); BUN 10 mg/dL (4-19); Calcium,Total 9.6 mg/dL (7.6-11.0); Carbon Dioxide 24.2 mmol/L (21.0-32.0); Chloride 105 mmol/L (98-108); Creatinine, Serum 1.11 mg/dL (0.70-1.20); EST Glomerular Filtration Rate 74 (>60); Estimated Creatinine Clearance 72.67 ml/min (50-250); Glucose 93 mg/dL (70-99); Potassium 4.5 mmol/L (3.3-5.1); Sodium Level 142 mmol/L (133-145); Troponin T High Sensitivity 9 ng/L (<=22)
[2024-06-25] MEDS: Ramipril 10 MG Capsule 20 MG PO (14:37)
[2024-06-25 14:42] LABS: International Normalized Ratio 2.6; Prothrombin Time (Protime)PT. 28.4 SECONDS (11.7-14.9)
[2024-06-25 15:00] VITALS: BP 156/61; PULSE 43; RESP 13
[2024-06-25 15:45] LABS: Troponin T High Sens 2 HR 11 ng/L (<=22)
[2024-06-25 16:00] VITALS: BP 146/65; PULSE 45; RESP 11
== END 2024-06-25 16:09 | disposition home or self-care (01) ==
PROVIDERS: Emergency Provider Emergency Medicine; PCP Nurse Practitioner Family; Visit Provider Emergency Medicine
DX: I10 Essential (primary) hypertension (principal); I48.0 Paroxysmal atrial fibrillation; I25.10 Atherosclerotic heart disease of native coronary artery without angina pectoris; E78.5 Hyperlipidemia, unspecified; Z79.01 Long term (current) use of anticoagulants; Z95.2 Presence of prosthetic heart valve; Z79.899 Other long term (current) drug therapy
CPT/HCPCS: 71045; 80048; 84484; 85025; 85610; 93005; 99284; A4216

== ENCOUNTER 2024-07-13 12:26 | Outpatient (RCR) | payer OTHER, SELFPAY ==
[2024-06-19 07:42] VITALS: BMI 29.6
[2024-07-05 12:21] LABS: Absolute Lymphocyte Count 1.52 X10^3/uL (0.83-4.51); Absolute Neutrophil Count 4.4 X10^3/uL (2.0-7.7); Basophil# 0.06 X10^3/uL; Basophil% 0.8 % (0-1); Eosinophil# 0.53 X10^3/uL; Eosinophils% 7.2 % (0-5); Hematocrit 44.8 % (40-54); Hemoglobin 14.8 g/dL (13.0-16.5); Lymphocyte # 1.52 X10^3/ul (0.83-4.51); Lymphocyte % 20.6 % (19-41); Mean Corpuscular Hgb 30.2 pg (27.0-32.0); Mean Corpuscular Volume 91.4 fL (80-94); Mean Platelet Vol. 9.9 fl (6.2-12.0); Monocyte# 0.78 X10^3/uL; Monocyte% 10.6 % (0-10); NRBC Flagged by Analyzer 0 % (0-5); Neutrophil # 4.43 X10^3/uL (2.7-7.7); Neutrophil % 60.1 % (47-70); Platelet Count 220 K/mm3 (150-450); RBC Distribution Width CV 12.8 % (11.6-14.6); RBC Distribution Width SD 42.2 fl (35.1-43.9); White Blood Count 7.4 K/mm3 (4.4-11.0)
[2024-07-05 12:31] LABS: International Normalized Ratio 2.7; Prothrombin Time (Protime)PT. 29.3 SECONDS (11.7-14.9)
[2024-07-05 12:49] LABS: Color, Urine Yellow (Yellow); Glucose, Dipstick Normal (Normal); Ketone-Dipstick Negative (Negative); Leukocyte Esterase-Dipstick 25 /ul (Negative); Nitrite-Dipstick Negative (Negative); Occult Blood-Urine Negative /ul (Negative); Protein-Dipstick 15 mg/dl (Negative); Specific Gravity, Urine 1.015 (1.002-1.030); Urine Bilirubin Dipstick Negative (Negative); Urine Clarity Clear (Clear); Urine Urobilinogen Normal (Normal)
[2024-07-05 14:22] LABS: ALB/GLOB Ratio 1.7 RATIO (0.9-2.4); AST(SGOT) 27 U/L (<=37); Alanine Aminotransfer ALT/SGPT 18 U/L (<=46); Albumin, Serum 4.5 g/dL (3.4-4.8); Alkaline Phosphatase 84 U/L (40-129); Anion Gap 11 (5-15); BUN 15 mg/dL (4-19); BUN/Creat Ratio 13.3 RATIO (10-20); Calcium,Total 9.5 mg/dL (7.6-11.0); Carbon Dioxide 24.5 mmol/L (21.0-32.0); Chloride 107 mmol/L (98-108); Creatinine, Serum 1.09 mg/dL (0.70-1.20); EST Glomerular Filtration Rate 76 (>60); Globulin 2.6 g/dL (2.2-4.2); Glucose 99 mg/dL (70-99); Potassium 4.5 mmol/L (3.3-5.1); Sodium Level 142 mmol/L (133-145)
[2024-07-05 14:43] LABS: Vitamin D,25 Hydroxy 30.9 ng/mL (30-100)
[2024-07-05 16:15] LABS: Microalbumin,Random Urine < 12.0 mg/L (NO RANGE EST.); Microalbumin:Creatinine Ratio UNABLE TO CALCULATE mg/g CRE
[2024-07-09 12:39] LABS: International Normalized Ratio 2.8; Prothrombin Time (Protime)PT. 29.8 SECONDS (11.7-14.9)
[2024-07-13 13:44] LABS: International Normalized Ratio 1.5; Prothrombin Time (Protime)PT. 18.7 SECONDS (11.7-14.9)
== END 2024-07-13 18:00 | disposition home or self-care (01) ==
LOC: LAB 12:26
PROVIDERS: PCP Nurse Practitioner Family; Referring Provider Nurse Practitioner Family; Visit Provider Internal Medicine Cardiovascular Disease
DX: Z95.2 Presence of prosthetic heart valve (principal); Z79.01 Long term (current) use of anticoagulants; I48.0 Paroxysmal atrial fibrillation
CPT/HCPCS: 36415; 80053; 81002; 82043; 82306; 82570; 84439; 84443; 85025; 85610

== ENCOUNTER → 2024-07-20 | Outpatient (CLI) | payer OTHER, SELFPAY ==
--- NOTE | 2024-07-20 12:38 | MRI_ITS ---
PROCEDURE: BRAIN W/WO CONTRAST 07/20/2024 REASON FOR EXAM: MRI BRAIN W/W/O CONTRAST TECHNIQUE: Routine brain MRI without and with intravenous contrast. CONTRAST: 17 cc Clariscan intravenous COMPARISON: Head CT 01/21/2024 FINDINGS: No evidence of acute/subacute infarct, mass or intracranial hemorrhage identified. The ventricles are within limits and midline. CSF spaces appear within limits. Internal auditory canals and suprasellar cistern appear within limits. The major intracranial flow voids appear within limits. A few bilateral frontal white matter small foci of T2 prolongation are nonspecific and statistically would represent chronic small-vessel ischemic change and appear within limits for age. The temporal lobes appear symmetric. The orbits appear within limits. The paranasal sinuses and mastoids appear within limits. The pituitary appears within limits. No abnormal enhancement. MRI/Brain W/WO Contrast IMPRESSION: MRI of the brain appears within limits for age without and with contrast as abo ve. Reading Location: [id number]
== END | disposition home or self-care (01) ==
LOC: MRI 12:34
PROVIDERS: PCP Nurse Practitioner Family; Referring Provider Nurse Practitioner Family; Visit Provider Nurse Practitioner Family
DX: R55 Syncope and collapse (principal)
CPT/HCPCS: 70553; A9575

== ENCOUNTER 2024-08-17 11:31 | Outpatient (RCR) | payer OTHER, SELFPAY ==
[2024-07-19 22:54] VITALS: BMI 29.6
[2024-07-20 14:35] LABS: International Normalized Ratio 2.4; Prothrombin Time (Protime)PT. 27.1 SECONDS (11.7-14.9)
[2024-08-03 14:11] LABS: International Normalized Ratio 2.4; Prothrombin Time (Protime)PT. 26.5 SECONDS (11.7-14.9)
[2024-08-17 12:28] LABS: International Normalized Ratio 2.4
== END 2024-08-18 18:00 | disposition home or self-care (01) ==
LOC: LAB 11:31
PROVIDERS: PCP Nurse Practitioner Family; Referring Provider Nurse Practitioner Family; Visit Provider Internal Medicine Cardiovascular Disease
DX: Z95.2 Presence of prosthetic heart valve (principal); Z79.01 Long term (current) use of anticoagulants; I48.0 Paroxysmal atrial fibrillation
CPT/HCPCS: 36415; 85610

== ENCOUNTER 2024-09-15 06:31 | Outpatient (RCR) | payer MEDICARE, SELFPAY ==
[2024-08-18 22:16] VITALS: BMI 29.6
[2024-08-31 13:17] LABS: International Normalized Ratio 3.6
[2024-08-31 14:59] LABS: AST(SGOT) 28 U/L (<=37); Alanine Aminotransfer ALT/SGPT 19 U/L (<=46); Albumin, Serum 4.2 g/dL (3.4-4.8); Alkaline Phosphatase 83 U/L (40-129); Bilirubin, Direct 0.13 mg/dL (0.00-0.30); Cholesterol 253 mg/dL (<=200); Globulin 2.3 g/dL (2.2-4.2); High Density Lipoprotein 31 mg/dL; Low Density Lipoprotein Calc. 147 mg/dL; Protein, Total 6.5 g/dL (5.9-8.4); Total Bilirubin 0.37 mg/dL (0.00-1.30); Triglycerides 371 mg/dL; Very Low Density Lipoprotein 74 mg/dL (5-40); cholesterol:hdl ratio screen 8.06
[2024-09-15 07:43] LABS: AST(SGOT) 29 U/L (<=37); Alanine Aminotransfer ALT/SGPT 16 U/L (<=46); Albumin, Serum 4.3 g/dL (3.4-4.8); Alkaline Phosphatase 85 U/L (40-129); Bilirubin, Direct 0.18 mg/dL (0.00-0.30); Cholesterol 243 mg/dL (<=200); Globulin 2.2 g/dL (2.2-4.2); High Density Lipoprotein 35 mg/dL; Low Density Lipoprotein Calc. 160 mg/dL; Protein, Total 6.5 g/dL (5.9-8.4); Total Bilirubin 0.46 mg/dL (0.00-1.30); Triglycerides 243 mg/dL; Very Low Density Lipoprotein 49 mg/dL (5-40); cholesterol:hdl ratio screen 6.96
[2024-09-15 08:36] LABS: International Normalized Ratio 3.6; Prothrombin Time (Protime)PT. 36.9 SECONDS (11.7-14.9)
== END 2024-09-15 18:00 | disposition home or self-care (01) ==
LOC: LAB 06:31
PROVIDERS: Nurse Practitioner Family; Physician Assistant Medical; PCP Nurse Practitioner Family; Referring Provider Nurse Practitioner Family; Visit Provider Internal Medicine Cardiovascular Disease
DX: Z95.2 Presence of prosthetic heart valve (principal); Z79.01 Long term (current) use of anticoagulants; E78.2 Mixed hyperlipidemia
CPT/HCPCS: 36415; 80061; 80076; 85610

== ENCOUNTER 2024-09-29 08:17 | Outpatient (RCR) | payer MEDICARE, SELFPAY ==
[2024-09-19 04:41] VITALS: BMI 29.6
[2024-09-29 09:17] LABS: International Normalized Ratio 2.6
== END 2024-09-29 18:00 | disposition home or self-care (01) ==
LOC: LAB 08:17
PROVIDERS: PCP Nurse Practitioner Family; Referring Provider Nurse Practitioner Family; Visit Provider Internal Medicine Cardiovascular Disease
DX: Z95.2 Presence of prosthetic heart valve (principal); Z79.01 Long term (current) use of anticoagulants; I48.0 Paroxysmal atrial fibrillation
CPT/HCPCS: 36415; 85610

== ENCOUNTER 2024-11-17 08:44 | Outpatient (RCR) | payer MEDICARE, SELFPAY ==
[2024-10-20 09:16] LABS: Prothrombin Time (Protime)PT. 28.4 SECONDS (11.7-14.9)
[2024-11-17 09:41] LABS: Prothrombin Time (Protime)PT. 30.7 SECONDS (11.7-14.9)
== END 2024-11-18 21:38 | disposition home or self-care (01) ==
LOC: LAB 08:44
PROVIDERS: PCP Nurse Practitioner Family; Referring Provider Nurse Practitioner Family; Visit Provider Internal Medicine Cardiovascular Disease
DX: Z95.2 Presence of prosthetic heart valve (principal); I48.0 Paroxysmal atrial fibrillation; Z79.01 Long term (current) use of anticoagulants
CPT/HCPCS: 36415; 85610

== ENCOUNTER → 2024-12-06 | Outpatient (CLI) | payer MEDICARE, SELFPAY ==
[2024-12-06 15:45] LABS: PSA,Total- Diagnostic 2.80 ng/mL (0.00-4.00)
== END | disposition home or self-care (01) ==
LOC: LAB 14:29
PROVIDERS: PCP Nurse Practitioner Family; Referring Provider Urology; Visit Provider Urology
DX: N40.1 Benign prostatic hyperplasia with lower urinary tract symptoms (principal)
CPT/HCPCS: 36415; 84153

== ENCOUNTER 2024-12-15 09:39 | Outpatient (RCR) | payer MEDICARE, SELFPAY ==
[2024-12-15 11:11] LABS: Prothrombin Time (Protime)PT. 26.3 SECONDS (11.7-14.9)
== END 2024-12-15 18:00 | disposition home or self-care (01) ==
LOC: LAB 09:39
PROVIDERS: PCP Nurse Practitioner Family; Referring Provider Nurse Practitioner Family; Visit Provider Internal Medicine Cardiovascular Disease
DX: Z79.01 Long term (current) use of anticoagulants
CPT/HCPCS: 36415; 85610

== ENCOUNTER 2025-01-05 08:30 | Outpatient (RCR) | payer MEDICARE, SELFPAY ==
[2025-01-05 09:36] LABS: Prothrombin Time (Protime)PT. 26.1 SECONDS (11.7-14.9)
[2025-01-05 10:09] LABS: Hepatitis C Antibody Nonreactive (Nonreactive)
[2025-01-05 10:27] LABS: AST(SGOT) 40 U/L (<=37); Alanine Aminotransfer ALT/SGPT 32 U/L (<=46); Albumin, Serum 4.3 g/dL (3.4-4.8); Alkaline Phosphatase 73 U/L (40-129); Bilirubin, Direct 0.21 mg/dL (0.00-0.30); Cholesterol 127 mg/dL (<=200); Globulin 2.2 g/dL (2.2-4.2); Low Density Lipoprotein Calc. 51 mg/dL; Triglycerides 190 mg/dL; Very Low Density Lipoprotein 38 mg/dL (5-40); cholesterol:hdl ratio screen 3.33
[2025-01-06 18:08] LABS: PSA, Total 2.8 ng/mL (0.0-4.0)
== END 2025-01-18 18:00 | disposition home or self-care (01) ==
LOC: LAB 08:30
PROVIDERS: Internal Medicine; Nurse Practitioner Gerontology; PCP Nurse Practitioner Family; Referring Provider Internal Medicine Cardiovascular Disease; Visit Provider Internal Medicine Cardiovascular Disease
DX: Z79.01 Long term (current) use of anticoagulants; E78.2 Mixed hyperlipidemia; Z12.5 Encounter for screening for malignant neoplasm of prostate; Z11.59 Encounter for screening for other viral diseases
CPT/HCPCS: 36415; 80061; 80076; 84153; 85610; 86803

== ENCOUNTER 2025-02-09 08:19 | Outpatient (RCR) | payer MEDICARE, SELFPAY ==
[2025-01-19 09:55] LABS: Prothrombin Time (Protime)PT. 28.5 SECONDS (11.7-14.9)
[2025-02-09 09:34] LABS: Prothrombin Time (Protime)PT. 24.9 SECONDS (11.7-14.9)
== END 2025-02-09 18:00 | disposition home or self-care (01) ==
LOC: LAB 08:19
PROVIDERS: PCP Nurse Practitioner Family; Referring Provider Internal Medicine Cardiovascular Disease; Visit Provider Internal Medicine Cardiovascular Disease
DX: Z95.2 Presence of prosthetic heart valve (principal); Z79.01 Long term (current) use of anticoagulants; I48.0 Paroxysmal atrial fibrillation
CPT/HCPCS: 36415; 85610

== ENCOUNTER 2025-03-14 07:48 | Outpatient (RCR) | payer MEDICARE, SELFPAY ==
[2025-02-21 09:54] LABS: Hematocrit 44.6 % (40-54); Hemoglobin 14.0 g/dL (13.0-16.5); Immature Granulocytes Count 0.030 X10^3/uL (0.0-0.0); Mean Corp Hgb Conc 31.4 g/dL (32-36); Mean Corpuscular Volume 93.5 fL (80-94); Mean Platelet Vol. 11.5 fl (6.2-12.0); NRBC Flagged by Analyzer 0 % (0-5); POSITIVE COUNT YES; RBC Distribution Width CV 11.9 % (11.6-14.6); RBC Distribution Width SD 41.6 fl (35.1-43.9); Red Blood Count 4.77 M/mm3 (4.6-6.2); White Blood Count 6.9 K/mm3 (4.4-11.0)
[2025-02-21 10:18] LABS: Differential Indicated SCAN CRITERIA MET
[2025-02-21 10:19] LABS: Prothrombin Time (Protime)PT. 27.2 SECONDS (11.7-14.9)
[2025-02-21 10:20] LABS: Differential Comment SCANNED
[2025-02-21 10:42] LABS: AST(SGOT) 29 U/L (<=37); Alanine Aminotransfer ALT/SGPT 22 U/L (<=46); Albumin, Serum 4.4 g/dL (3.4-4.8); Alkaline Phosphatase 78 U/L (40-129); Bilirubin, Direct 0.17 mg/dL (0.00-0.30); Cholesterol 142 mg/dL (<=200); Globulin 2.4 g/dL (2.2-4.2); Low Density Lipoprotein Calc. 73 mg/dL; Triglycerides 154 mg/dL; Very Low Density Lipoprotein 31 mg/dL (5-40); cholesterol:hdl ratio screen 3.33
[2025-02-21 11:17] LABS: Anion Gap 11 (5-15); BUN 14 mg/dL (4-19); BUN/Creat Ratio 13.7 RATIO (10-20); Calcium,Total 9.5 mg/dL (7.6-11.0); Carbon Dioxide 24.9 mmol/L (21.0-32.0); Chloride 107 mmol/L (98-108); Glucose 86 mg/dL (70-99); Potassium 4.5 mmol/L (3.3-5.1)
[2025-03-14 08:35] LABS: Prothrombin Time (Protime)PT. 25.0 SECONDS (11.7-14.9)
== END 2025-03-19 18:00 | disposition home or self-care (01) ==
LOC: LAB 07:48
PROVIDERS: Physician Assistant Medical; Student in an Organized Health Care Education/Training Program; PCP Internal Medicine; Referring Provider Internal Medicine Cardiovascular Disease; Visit Provider Internal Medicine Cardiovascular Disease
DX: Z95.2 Presence of prosthetic heart valve (principal); Z79.01 Long term (current) use of anticoagulants; I48.0 Paroxysmal atrial fibrillation; E78.00 Pure hypercholesterolemia, unspecified
CPT/HCPCS: 36415; 80048; 80061; 80076; 84439; 84443; 85025; 85610

== ENCOUNTER → 2025-03-25 | Outpatient (CLI) | payer MEDICARE, SELFPAY ==
--- NOTE | 2025-03-25 12:28 | US_ITS ---
PROCEDURE: THYROID 03/25/2025 REASON FOR EXAM: THYROID NODULES TECHNIQUE: Procedure Code: USTHY Modality: US Procedure: THYROID COMPARISON: December 19, 2022 FINDINGS: Right thyroid lobe size: 4.3 x 1.5 x 1.2 cm Left thyroid lobe size: 4.4 x 1.6 x 1.1 cm Isthmus: 0.3 cm Background parenchymal echotexture is homogeneous. Nodules: 1. Lobe: Right, Location: Inferior, Size: 0.5 cm, Stability: N/A Composition: Mixed cystic and solid (+1) Echogenicity: Hyper to Isoechoic (+1) Margin: Smooth (+0) Shape: Wider than tall (+0) Echogenic Foci: Macrocalcification (+1) TI-RADS: 3 2. Lobe: Left, Location: Mid, Size: 1.4 cm, Stability: N/A Composition: Cystic or mostly cystic (+0) Echogenicity: Anechoic (+0) Margin: Smooth (+0) Shape: Wider than tall (+0) Echogenic Foci: Macrocalcification (+1) TI-RADS: 1 US/Thyroid IMPRESSION: Small solid nodule in the mid right lobe measuring 5 mm. TI-RADS: 3 numerous a dditional benign-appearing cysts through the thyroid. RECOMMENDATION: Consider follow-up evaluation in 12 months to assess stability. Reading Location: [facility]
== END | disposition home or self-care (01) ==
LOC: US 12:28
PROVIDERS: PCP Internal Medicine; Referring Provider Internal Medicine; Visit Provider Internal Medicine
DX: E04.1 Nontoxic single thyroid nodule (principal)
CPT/HCPCS: 76536

== ENCOUNTER 2025-04-11 08:05 | Outpatient (RCR) | payer MEDICARE, SELFPAY ==
[2025-03-28 10:16] LABS: Prothrombin Time (Protime)PT. 25.6 SECONDS (11.7-14.9)
[2025-03-28 10:39] LABS: Free T3 3.5 pg/mL (2.18-3.98)
[2025-04-11 08:52] LABS: Prothrombin Time (Protime)PT. 30.0 SECONDS (11.7-14.9)
== END 2025-04-11 18:00 | disposition home or self-care (01) ==
LOC: LAB 08:05
PROVIDERS: PCP Internal Medicine; Referring Provider Internal Medicine Cardiovascular Disease; Visit Provider Internal Medicine Cardiovascular Disease
DX: Z79.01 Long term (current) use of anticoagulants (principal)
CPT/HCPCS: 36415; 84439; 84443; 84481; 85610